=== PATIENT | female | born 1965 | race Caucasian/White ===

== ENCOUNTER 2024-10-18 06:37 | Outpatient (CLI) | payer MEDICARE, SELFPAY ==
--- OUTSIDE RECORDS SUMMARY | 2024-10-18 06:46 | XMS_ITS | Patient Health Record ---
Author Organization [facility] Office Address [address] [facility] [address] [facility] [address] [place] [address] Care Team Providers Care Furnishings Conservator Name Role Phone Everette Griffin Unavailable [phone] REASON FOR REFERRAL No Information PROBLEMS Problem Type ICD Code Onset Dates Problem Status W/U Status Risk SNOMED Code Notes Problem Hypothyroidism, unspecified (E03.9) Active confirmed Hypothyr oidism (40520441) Problem Type 2 diabetes mellitus with diabetic chronic kidney disease (E11.22) Active confirmed Diabetic renal disease (573285378) Problem Obesity, unspecified (E66.9) Active confirmed Obesity (087325743) Problem 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) Active confirmed Aortic kang ve disorder (1523267) Problem Chronic obstructive pulmonary disease, unspecified (J44.9) Active confirmed Chronic obstructive pulmonary disease (17336419) Problem Chronic kidney disease, stage 4 (severe) (N18.4) Active confirmed Chronic kid mindy disease stage 4 (123570132) Problem Renal osteodystrophy (N25.0) Active confirmed Renal osteodyst rophy (53181366) Problem Secondary hyperparathyroidism of renal origin (N25.81) Active confirmed Secondary hyperparathyroidism of renal origin (78558854) Problem Edema, unspecified (R60.9) Active confirmed Edema (84988584) Problem Essential hypertension (I10) Active confirmed Essential hypertension (37947695) Problem Chronic kidney disease, stage 3 unspecified (N18.30) Active confirmed Chronic kidney disease stage 3 (disorder) (146809604) Encounters Encounter Location Date Provider Diagnosis [facility] [address] [facility] [address] [place] [address] 10/12/2024 Everette Griffin Chronic kidney disea se, stage 4 (severe) N18.4 ; Type 2 diabetes mellitus with diabetic chronic kidney disease E11.22 ; Proteinuria, unspecified R80.9 ; Essential hypertension I10 ; Renal osteodystrophy N25.0 ; Secondary hyperparathyroidism of renal origin N25.81 ; Acute metabolic acidosis E87.21 and Obesity, unspecified E66.9 ASSESSMENTS Encounter Date Diagnosis Assessment Notes Treatment Notes Treatment Clinical Notes Section Notes 10/12/2024 Type 2 diabetes mellitus with diabetic chronic kidney disease (ICD-10 - E11.22) 10/12/2024 Chronic kidney disea se, stage 4 (severe) (ICD-10 - N18.4) 10/12/2024 Proteinuria, unspecified (ICD-10 - R80.9) 10/12/2024 Essential hypertensi on (ICD-10 - I10) 10/12/2024 Renal osteodystrophy (ICD-10 - N25.0) 10/12/2024 Secondary hyperparathyroidism of renal origin (ICD-10 - N25.81) 10/12/2024 Acute metabolic acidosis (ICD-10 - E87.21) 10/12/2024 Obesity, unspecified (ICD-10 - E66.9) PLAN OF TREATMENT Next Appt Details Provider Name:Everette Griffin , 10/26/2024 03:00:00 PM, [address], [facility] [address], [place], [address],
--- OUTSIDE RECORDS SUMMARY | 2024-10-18 06:46 | XMS_ITS | CONTINUITY OF CARE DOCUMENT ---
Author Name yo ram Address Unknown Organization [facility] Address [address] [place] [address] Phone [phone] Care Team Providers Care All Around Presser Name Role Phone Anna NETTLES, Bry Webb Unavailable BARTOLO NG MD Unavailable [phone] BARTOLO NG MD Unavailable PROBLEMS Condition Status Date Provider Notes HTN essential--echo ef nl, s evere , 04/2022 active Feliciano Griffin MD Hyperlipidemia active Feliciano Griffin MD COPD active Feliciano Griffin MD Hypothyroidism active Feliciano Griffin MD Morbid obesity active Feliciano Griffin MD Sinus tachycardia active Feliciano Griffin MD Chest pain--no sig CAD on cath 10/2022 active Feliciano Griffin MD FAMILY HISTORY OF HEART DISEASE active Armani Griffin MD Aortic stenosis, severe by echo 06/2023 active Dequan Ware Venous insufficiency active Feliciano Griffin MD JULIO on CPAP active Feliciano Griffin MD Proteinuria, f/w Dr. Loyola active Feliciano quintero MD CKD 3 active Dequan Ware Hypertension active Bry Castillo MD Sleep apnea active Bry Castillo MD Edema - generalized active Bry Castillo MD ENCOUNTERS Date Type Provider Location Encounter Diag nosis - In-person encounter Office Visit Bry Castillo MD [facility] - In-person encounter Office Visit Bry Castillo MD [facility] - In-person encounter Office Visit Bry Castillo MD [facility] Edema - generalized - In-person encounter Office Visit Bry Castillo MD [facility] HypertensionSleep apnea - In-person encounter Office Visit Feliciano Griffin MD [facility] Aortic stenosis, severe by echo KD 3 - In-person encounter Office Visit Feliciano Griffin MD [facility] Chest pain--no sig CAD on cath ortic stenosis, severe by echo 06/2023 - In-person encounter Office Visit Feliciano Griffin MD [facility] - In-person encounter Office Visit Feliciano Griffin MD [facility] HTN essential--echo ef nl, severe , ortic stenosis, severe by echo 06/2023 - In-person encounter Office Visit Feliciano Griffin MD [facility] - In-person encounter Office Visit Feliciano Griffin MD [facility] JULIO on CPAPProteinuria, f/w Dr. Loyola - In-person encounter Office Visit Feliciano Griffin MD [facility] Chest pain--no sig CAD on cath 10/2022FAMILY HISTORY OF HEART DISEASEAortic stenosis, severe by echo 06/2023Venous insufficiency - In-person encounter Office Visit Feliciano Griffin MD [facility] HTN essential--echo ef nl, severe , 04/2022HyperlipidemiaCOP DHypothyroidismMorbid obesitySinus tachycardiaChest pain--no sig CAD on cath 10/2022 VITAL SIGNS Date Observation Value Provider Body Mass Index (Ratio) 56.33 kg/m2 Jonathan Castillo MD blood pressure, cuff size large Ke rri Grantamriknenfeld blood pressure, diastolic 90 mm[Hg] Dominick rri Grantuenenfeld blood pressure, systolic 144 mm[Hg] Gamaliel lua Grantamrikcarrilloeldcarl oxygen saturation, oximetry 96 % Lisbeth Fransisconfelder respiratory rate E&M 14 /min Lisbeth G ruenenfelder pulse rate 90 /min Lisbeth Jordane [facility] weight E&M 308 [lb_av] Lisbeth Kapilnenfe [facility] height E&M 62 [in_i] Lisbeth Kapilnenfe [facility] Body Mass Index (Ratio) 58.34 kg/m2 Fadi luna Faith blood pressure, diastolic 94 mm[Hg] nkLog blood pressure, systolic 122 mm[Hg] [facility] blood pressure, cuff size regular [facility] blood pressure, diastolic 94 mm[Hg] [facility] blood pressure, systolic 122 mm[Hg] [facility] respiratory rate E&M 18 /min Solange victor pulse rate 87 /min [facility] oxygen saturation, oximetry 97 % [facility] weight E&M 319 [lb_av] [facility] height E&M 62 [in_i] [facility] Body Mass Index (Ratio) 58.89 kg/m2 Jonathan Castillo MD blood pressure, diastolic 82 mm[Hg] Li nkLog blood pressure, systolic 185 mm[Hg] Tiffanie og blood pressure, cuff size regular [facility] blood pressure, diastolic 82 mm[Hg] [facility] blood pressure, systolic 185 mm[Hg] Michael aylaa [place] pulse rate 102 /min Solange [place] respiratory rate E&M 18 /min Solange Nicholson jackelinr oxygen saturation, oximetry 95 % Solange [place] weight E&M 322 [lb_av] Solange [place] height E&M 62 [in_i] Solange [place] Body Mass Index (Ratio) 57.61 kg/m2 Jonathan Castillo MD blood pressure, cuff size large [facility] blood pressure, diastolic 100 mm[Hg] Ke rri Grantuechance blood pressure, systolic 140 mm[Hg] Gamaliel Cobian oxygen saturation, oximetry 96 % Lisbeth Cobian respiratory rate E&M 12 /min Lisbeth daniel pulse rate 111 /min Lisbeth Aurora [facility] weight E&M 315 [lb_av] Lisbeth Aurora [facility] height E&M 62 [in_i] Lisbeth Aurora er Body Mass Index (Ratio) 57.43 kg/m2 Armani Griffin MD blood pressure, diastolic 81 mm[Hg] Shruthi nkLogkamran blood pressure, systolic 167 mm[Hg] Tiffanie kLogic blood pressure, cuff size large Ja rret blood pressure, diastolic 81 mm[Hg] Ja rret blood pressure, systolic 167 mm[Hg] Jar ret pulse rate 85 /min Pedro er y oxygen saturation, oximetry 96 % Pedro respiratory rate E&M 16 /min Pedro weight E&M 314 [lb_av] Pedro erda y height E&M 62 [in_i] Pedro Quezada y Body Mass Index (Ratio) 58.52 kg/m2 Armani Griffin MD blood pressure, diastolic 88 mm[Hg] [facility] sw[facility] Felix blood pressure, systolic 167 mm[Hg] Lena mendoza Felix oxygen saturation, oximetry 96 % Jena Felix pulse rate 101 /min Jena Felix respiratory rate E&M 18 /min Jena D abby weight E&M 320 [lb_av] Jena Felix height E&M 62 [in_i] Jena Felix Body Mass Index (Ratio) 57.97 kg/m2 Armani Griffin MD oxygen saturation, oximetry 97 % Minervafoster Booker pulse rate 90 /min [facility] Booker blood pressure, diastolic 80 mm[Hg] Lorena staci [place] blood pressure, systolic 160 mm[Hg] Any foster [place] weight E&M 317 [lb_av] [facility] Booker blood pressure, cuff size large An staci Booker height E&M 62 [in_i] Minerv[place] Booker Body Mass Index (Ratio) 58.52 kg/m2 Armani Griffin MD blood pressure, diastolic 76 mm[Hg] Shruthi nkLogic blood pressure, systolic 131 mm[Hg] Tiffanie kLogic blood pressure, diastolic 76 mm[Hg] Sa ra Villalobos blood pressure, systolic 131 mm[Hg] Mila a Villalobos respiratory rate E&M 17 /min Hanh Si ms oxygen saturation, oximetry 95 % Hanh Villalobos pulse rate 94 /min Hanh Villalobos weight E&M 320 [lb_av] Hanh Villalobos blood pressure, cuff size regular Sa ra Villalobos height E&M 62 [in_i] Hanh Villalobos Body Mass Index (Ratio) 62.00 kg/m2 Armani Griffin MD blood pressure, diastolic 74 mm[Hg] Li nkLogic blood pressure, systolic 130 mm[Hg] Tiffanie kLogic blood pressure, cuff size regular Cy tejal Sam blood pressure, diastolic 74 mm[Hg] Cy tejal Vargas blood pressure, systolic 130 mm[Hg] Colette jordan Vargas oxygen saturation, oximetry 96 % Neena Vargas respiratory rate E&M 16 /min Neena Vargas pulse rate 97 /min Neena Taylor chapin weight E&M 339 [lb_av] Feliciano Griffin MD height E&M 62 [in_i] Neena Hightowerbel l Body Mass Index (Ratio) 62.55 kg/m2 Armani Griffin MD blood pressure, diastolic 85 mm[Hg] To [facility] blood pressure, systolic 147 mm[Hg] Ton Jerold [facility] oxygen saturation, oximetry 97 % [facility] respiratory rate E&M 18 /min [facility] pulse rate 97 /min [facility] weight E&M 342 [lb_av] [facility] height E&M 62 [in_i] [facility] Body Mass Index (Ratio) 64.92 kg/m2 Armani Griffin MD blood pressure, diastolic 75 mm[Hg] To garrison Griffin MD blood pressure, systolic 152 mm[Hg] Harvinder Griffin MD oxygen saturation, oximetry 95 % Feliciano Griffin MD respiratory rate E&M 16 /min Feliciano Griffin MD pulse rate 113 /min Feliciano Griffin MD weight E&M 355 [lb_av] Feliciano Griffin MD height E&M 62 [in_i] Feliciano Griffin MD Body Mass Index (Ratio) 45.72 kg/m2 Armani Griffin MD respiratory rate E&M 18 /min [facility] blood pressure, diastolic 80 mm[Hg] To [facility] blood pressure, systolic 140 mm[Hg] [facility] pulse rate 107 /min [facility] blood pressure, resting Yes [facility] height E&M 62 [in_i] [facility] weight E&M 250 [lb_av] [facility] oxygen saturation, oximetry 97 % [facility] ALLERGIES No Known Drug Allergies RESULTS Date Observation Value Provider Reference Range Interpretation Location Estimated Glomerular Filtration Rate (calc) 61 mL/min/{ 1.73_m2} [facility] [place] [address] NT-pro BNP 56 [facility] <=300 Normal [place] [address] aspartate aminotransferase (SGOT), serum 15 1/L [facility] 10-45 Normal [place] [address] alanine aminotransferase (SGPT), serum 19 1/L [facility] 7-45 Normal [place] [address] Alkaline phosphatase 123 [facility] 40-130 Normal C, [place] [address] albumin, serum 4.6 g/dL [facility] 3.5-5.0 Normal [place] [address] protein, total, serum 7.9 g/dL [facility] 6.5-8.5 Normal [place] [address] bilirubin, serum, total 0.3 mg/dL [facility] 0.1-1.2 Normal [place] [address] calcium, serum 10.1 mg/dL [facility] 8.5-10.3 Normal C, [place] [address] blood glucose, random 71 mg/dL [facility] 70-199 Normal C, [place] [address] creatine, serum 1.05 mg/dL [facility] 0.60-1.10 Normal C, [place] [address] urea nitrogen, blood 18 mg/dL [facility] 6-25 Normal C, [place] [address] anion gap, serum 11 mmol/L [facility] 2-15 Normal C, [place] [address] carbon dioxide, venous blood 27 mmol/L [facility] 22-32 Normal C, [place] [address] chloride, serum 103 mmol/L [facility] 97-110 Normal C, [place] [address] potassium, serum 4.4 MMOL/L [facility] 3.3-4.9 Normal , [place] [address] sodium, serum 141 mmol/L [facility] 135-145 Normal C, [place] [address] activated partial thromboplastin time (aPTT) 34 s [facility] 28-38 Normal C, [place] [address] international normalized ratio (INR) 0.96 [facility] 0.90-1.20 Normal , [place] [address] prothrombin time (patient) 11.0 s [facility] 10.3-13.7 Normal , [place] [address] Absolute Basophils 0.1 K/CUMM [facility] 0.0-0.1 Normal C, [place] [address] Absolute Monocytes 0.5 K/CUMM [facility] 0.2-0.8 Normal , [place] [address] Absolute Lymphocytes 1.3 K/CUMM [facility] 0.8-3.3 Normal , [place] [address] Absolute Neutrophils 4.1 K/CUMM [facility] 1.5-6.5 Normal C, [place] [address] nucleated red blood cells as percent of blood leukocytes 0.00 K/CUMM [facility] 0.00-0.01 Normal red blood cell distribution width, size density 45.8 fL [facility] 35.7-48.1 Normal mean corpuscular hemoglobin concentration, RBC 31.7 G/DL [facility] 32.3-35.7 Low mean corpuscular hemoglobin, RBC 31.1 pg [facility] 27.1-33.3 Normal mean corpuscular volume, RBC 98.3 fL [facility] 81.3-96.4 High erythrocyte count, whole blood 4.66 M/CUMM [facility] 3.90-5.20 Normal mean platelet volume 10.4 fL [facility] 9.1-12.3 Normal platelet count 281 10*3/uL [facility] 150-400 Normal hematocrit, blood 45.8 % [facility] 35.6-45.5 High hemoglobin, blood 14.5 g/dL [facility] 11.9-15.5 Normal HISTORY OF MEDICATION USE Medication Status Instructions Dates Provider Indications Com ments clopidogrel 75 mg tablet active TAKE 1 TABLET BY MOUTH EVERY DAY Ana Brown Lasix 40 mg tablet active Take 1 tablet by mouth every other day Bry Castillo MD aspirin 81 mg tablet,chewable active TAKE 1 TABLET BY MOUTH EVERY DAY Solange Dillonbetriq 25 mg tablet extended release 24 hr active Take 1 tablet once a day Bry Castillo MD VITAMIN D TABLET active Take 1 tablet once a day Bry Castillo MD pravastatin 10 mg tablet active Bry Castillo MD #90, 90 days supply, Filled 04/12/2019 CIPROFLOXACIN HCL 500 MG ORAL TABLET completed - Feliciano Griffin MD #20, 10 days supply, Filled 05/26/2019 Spiriva with HandiHaler 18 mcg capsule, w/inhalation device active Bry Castillo MD #30, 30 days supply, Filled 06/18/2019 Symbicort 160-4.5 mcg/actuation HFA aerosol inhaler active Bry Castillo MD #10.2, 30 days supply, Filled 06/22/2019 PROAIR HFA 108 active Bry Castillo MD #8.5, 33 days supply, Filled 06/25/2019 losartan 50 mg tablet active Bry Castillo MD #90, 90 days supply, Filled 08/08/2019 CYCLOBENZAPRINE HCL 10 MG ORAL TABLET completed - Neena Vargas #30, 30 days supply, Filled 08/08/2019 levothyroxine 137 mcg tablet active Bry Castillo MD #30, 30 days supply, Filled 08/16/2019 bupropion HCl 200 mg tablet sustained-release 12 hr active Bry Castillo MD #60, 30 days supply, Filled 08/29/2019 METRONIDAZOLE 500 MG ORAL TABLET completed - Feliciano Griffin MD #14, 7 days supply, Filled 09/12/2019 SOCIAL HISTORY Date Observation Value Provider smoking, date started 1972 Hetal Azevedo NP smoking history, tot al pack/year 365 Hetal Jolly BEAN smoking history, tot al pack/day 1 Hetal Azevedo NP cigarette use yes Hetal Azevedo NP smoking status Former smoker Hetal lua NP smoking, date started 1972 [facility] smoking history, tot al pack/year 365 [facility] smoking history, tot al pack/day 1 [facility] cigarette use yes [facility] smoking status Former smoker [facility] smoking, date started 1972 [facility] smoking history, tot al pack/year 365 [facility] smoking history, tot al pack/day 1 [facility] cigarette use yes [facility] smoking status Former smoker [facility] social history reviewed E&M revi ewed - no changes required Bry Castillo MD social history reviewed E&M revi ewed - no changes required Dequan Ware social history E&M S moking History: Shane boggs is a former smoker. Dequan Ware smoking, date started 1972 Jena Felix smoking history, tot al pack/year 365 Jena Felix smoking history, tot al pack/day 1 Jena Felix cigarette use yes Jena Felix smoking status Former smoker Jena Felix social history reviewed E&M revi ewed - no changes required Dequan Ware social history E&M S moking History: Shane boggs is a former smoker. Debora Sanon social history reviewed E&M revi ewed - no changes required Debora Sanon smoking, date started 1972 Minerva W alysia smoking history, tot al pack/year 365 [facility] Booker smoking history, tot al pack/day 1 Minervafoster Booker cigarette use yes Minervafoster Booker smoking status Former smoker Minervafoster Cordova s social history reviewed E&M revi ewed - no changes required Dequan Ware social history E&M S moking History: Shane boggs is a former smoker. Feliciano Griffin MD social history reviewed E&M revi ewed - no changes required Feliciano Griffin MD smoking, date started 1973 Tho Vargas smoking history, tot al pack/year 365 Neena Vargas smoking history, tot al pack/day 1 Neena Vargas cigarette use yes Neena Otto nba smoking status Former smoker Neena maynard social history E&M S moking History: Shane boggs is a former smoker. Memo Calles social history reviewed E&M revi ewed - no changes required Memo Calles smoking, date started 1972 Tonsha Glasgow smoking history, tot al pack/year 365 Tonsha Glasgow smoking history, tot al pack/day 1 Tonsha Glasgow cigarette use yes Tonsha Glasgow smoking status Former smoker Tons Glasgow number of grandchildren Feliciano Griffin MD T sundar Griffin MD smoking, date started 1972 Feliciano Griffin MD smoking history, tot al pack/year 365 Feliciano Griffin MD smoking history, tot al pack/day 1 Feliciano Griffin MD cigarette use yes Feliciano Govea smoking status Former smoker Feliciano Griffin MD social history reviewed E&M revi ewed - no changes required Feliciano Griffin MD smoking history, tot al pack/year 365 Tonsha Glasgow smoking history, tot al pack/day 1 Tonsha Glasgow smoking, date started 1972 Tonsha Glasgow cigarette use yes Tonsha Glasgow smoking status Former smoker Tonsha Glasgow FAMILY HISTORY Family Member Condition Father Family History of Co ngestive Heart Failure: Father Family History of Co ronary Artery Disease: INSURANCE PROVIDERS Payer name Policy type / Coverage type [place] green party ID AARP MEDICARE ADVANTAGE ([facility] COMPLETE PPO) Other [id number] ADVANCE DIRECTIVES Name Date DISCUSSED - NO DECISION MADE TREATMENT PLAN Date Name Performer [id number],C, H er updated medication list for this problem includes: Levothyroxine Sodium 137 Mcg Oral Tablet (Levothyroxine sodium) Bry Castillo MD [id number],S, Bry Castillo MD [id number],C,S ees pulmonary A lpha-1 antitrypsin deficiency s ees Dr. Martinez @ [facility] for pulmonary Bry Castillo MD [id number],S, H er updated medication list for this problem includes: Pravastatin Sodium 10 Mg Oral Tablet (Pravastatin sodium) Bry Castillo MD [id number],S,has JULIO Maren Castillo MD [id number],S, B P today: 140/100 P rior BP: 167/81 (07/13/2023) Her updated medication list for this problem includes: Losartan Potassium 50 Mg Oral Tablet (Losartan potassium) Bry Castillo MD [id number],C, Severe aortic stenosis. No evidence of aortic insufficiency. Peak AV velocity: 4.03 m/s The Aortic Valve Peak Gradient is 6 5.07 mmHg The Aortic Valve Mean Gradient is 41.39 mmHg The DRAKE is 0.67 cm2. S he had heart carth in December of 2022 done at [facility] P AP is 34/14 and PCW is 17 gradient of 30 across the valve normal coronaries normal LVEF no MR Bry Castillo MD [id number],C,sees Dr. Melissa Castillo MD [id number],S, Dequan Paredes i [id number],S, Dequan Cuellarmedza i [id number],S, Dequan Paredes i [id number],S, Dequan Cuellarmedza i [id number],S, Dequan Ahmedza i [id number],S, Dequan Ahmedza i [id number],S, Dequan Ahmedza i [id number],S, Dequan Ahmedza i [id number],S, Dequan Ahmedza i [id number],S, Dequan Ahmedza i [id number],S, Dequan Ahmedza i [id number],S, Dequan Ahmedza i [id number],S, Dequan Ahmedza i [id number],S, Dequan Ahmedza i [id number],S, Debora Norm obsmeyer [id number],S, Debora Norm obsmeyer [id number],S, Debora Norm obsmeyer [id number],S, Debora Norm obsmeyer [id number],W, Dequan Ahmedza i [id number],W, Dequan Ahmedza i [id number],S, Dequan Ahmedza i [id number],S, Dequan Ahmedza i [id number],S, Dequan Ahmedza i [id number],S, Dequan Ahmedza i [id number],S, Dequan Ahmedza i [id number],W, Feliciano Griffin MD [id number],B, Dequan Ahmedza i [id number],S, Dequan Paredes i [id number],S, Dequan Paredes i [id number],S, Dequan Cedillocuco i [id number],S, Feliciano Griffin MD [id number],S, Feliciano Griffin MD [id number],S, Feliciano Griffin MD [id number],S, Feliciano Griffin MD [id number],S, Feliciano Griffin MD [id number],B, Feliciano Griffin MD Cardiology:This visi t has been a part of the consistent, comprehensive, and ongoing management of the chronic medical condition(s) listed above for the patient. The patient is using CPAP on a regular basis. The patient has been benefiting from therapy and should continue use. Bry Castillo MD Cardiology:This visi t has been a part of the consistent, comprehensive, and ongoing management of the chronic medical condition(s) listed above for the patient. 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 CONCLUSIONS: 1 . No evidence of a deep vein thrombosis of the lower extremities bilaterally. 2 . Venous insufficiency of the right sapheno femoral junction. 3 . Significant venous insufficiency of the greater saphenous vein bilaterally. Bry Castillo MD Cardiology:This visi t has been a part of the consistent, comprehensive, and ongoing management of the chronic medical condition(s) listed above for the patient. Her updated medication list for this problem includes: Pravastatin 10 Mg Tablet (Pravastatin) Bry Castillo MD Cardiology:This visi t has been a part of the consistent, comprehensive, and ongoing management of the chronic medical condition(s) listed above for the patient. BP today: 144/90 P rior BP: 122/94 (11/20/2023) Her updated medication list for this problem includes: Losartan 50 Mg Tablet (Losartan) Lasix 40 Mg Tablet (Furosemide) ..... Take 1 tablet by mouth every other day Aspirin 81 Mg Tablet,chewable (Aspirin) ..... Take 1 tablet by mouth every day Bry Castillo MD Cardiology: S ees pulmonary A lpha-1 antitrypsin deficiency s ees Dr. Martinez @ [facility] for pulmonary Hetal Celestinstoney BEAN Cardiology: T he patient is using CPAP on a regular basis. The patient has been benefiting from therapy and should continue use. Hetal Jolly BEAN Cardiology: N o current symptoms Hetal Jolly BEAN Cardiology: S /P TAVR 26 valve C ontinues on Plavix Hetal Jolly BEAN Cardiology: C ONCLUSIONS: 1 . No evidence of a deep vein thrombosis of the lower extremities bilaterally. 2 . Venous insufficiency of the right sapheno femoral junction. 3 . Significant venous insufficiency of the greater saphenous vein bilaterally. Hetal Gerberoleg BEAN Cardiology: H er updated medication list for this problem includes: Pravastatin 10 Mg Tablet (Pravastatin) Hetal Jolly BEAN Cardiology: B P today: 144/90 P rior BP: 122/94 (11/20/2023) Her updated medication list for this problem includes: Losartan 50 Mg Tablet (Losartan) Lasix 40 Mg Tablet (Furosemide) ..... Take 1 tablet by mouth every other day Aspirin 81 Mg Tablet,chewable (Aspirin) ..... Take 1 tablet by mouth every day Hetal Jolly BEAN Cardiology: H er updated medication list for this problem includes: Levothyroxine Sodium 137 Mcg Oral Tablet (Levothyroxine sodium) Bry Castillo MD Cardiology: H er updated medication list for this problem includes: Aspirin 81 Mg Tablet,chewable (Aspirin) ..... Take 1 tablet by mouth every day Losartan Potassium 50 Mg Oral Tablet (Losartan potassium) BP today: 185/82 P rior BP: 140/100 (07/23/2023) Bry Castillo MD Cardiology: s johny perera 1.05 Bry Castillo MD Cardiology Bry Castillo MD Cardiology: T AVR 26 valve Bry Castillo MD Cardiology: S ees pulmonary A lpha-1 antitrypsin deficiency s eejames Martinez @ [facility] for pulmonary Bry Castillo MD Cardiology:switch her to lasix e very other day 40mg Bry Castillo MD Cardiology: T he patient is using CPAP on a regular basis. The patient has been benefiting from therapy and should continue use. Bry Castillo MD Cardiology:add lasix 40mg x 1 week 1 +bilaterally edema Bry Castillo MD Cardiology: H er updated medication list for this problem includes: Aspirin 81 Mg Tablet,chewable (Aspirin) ..... Take 1 tablet by mouth every day Losartan Potassium 50 Mg Oral Tablet (Losartan potassium) BP today: 185/82 P rior BP: 140/100 (07/23/2023) Bry Castillo MD Cardiology: s johny perera 1.05 Bry Castillo MD Cardiology: H er updated medication list for this problem includes: Aspirin 81 Mg Tablet,chewable (Aspirin) ..... Take 1 tablet by mouth every day Bry Castillo MD Cardiology:TAVR 26 valve Bry Castillo MD Cardiology:The patie nt is using CPAP on a regular basis. The patient has been benefiting from therapy and should continue use. Bry Castillo MD Cardiology: H er updated medication list for this problem includes: Levothyroxine Sodium 137 Mcg Oral Tablet (Levothyroxine sodium) Bry Castillo MD Cardiology Bry Castillo MD Cardiology:Sees pulm kari A lpha-1 antitrypsin deficiency s ees Dr. Martinez @ [facility] for pulmonary Bry Castillo MD Cardiology: H er updated medication list for this problem includes: Pravastatin Sodium 10 Mg Oral Tablet (Pravastatin sodium) Bry Castillo MD Cardiology:has JULIO Bry bryson MD Cardiology: B P today: 140/100 P rior BP: 167/81 (07/13/2023) Her updated medication list for this problem includes: Losartan Potassium 50 Mg Oral Tablet (Losartan potassium) Bry Castillo MD Cardiology: Severe a ortic stenosis. No evidence of aortic insufficiency. Peak AV velocity: 4.03 m/s The Aortic Valve Peak Gradient is 6 5.07 mmHg The Aortic Valve Mean Gradient is 41.39 mmHg The DRAKE is 0.67 cm2. S he had heart carth in December of 2022 done at [facility] P AP is 34/14 and PCW is 17 gradient of 30 across the valve normal coronaries normal LVEF no MR Bry Castillo MD Cardiology:sees Dr. Milla Castillo MD Cardiology Dequan Ahcasey Cardiology Dequan Ahmedzai Cardiology Dequan Ahcasey Cardiology Dequan Ahcasey Cardiology Dequan Ahcasey Cardiology Dequan Ahmedzai Cardiology Dequan Ahmedzai Cardiology Dequan Ahmedzai Cardiology Dequan Ahmedzai Cardiology Dequan Ahmedzai Cardiology Dequan Ahmedzai Cardiology Dequan Ahmedzai Cardiology Dequan Ahmedzai Cardiology Dequan Ahmedzai Cardiology Debora Shultz eyer Cardiology Debora Shultz eyer Cardiology Debora Shultz eyer Cardiology Debora Shultz eyer Cardiology Dequan Ahmedzai Cardiology Dequan Ahmedzai Cardiology Dequan Ahmedzai Cardiology Dequan Ahmedzai Cardiology Dequan Ahmedzai Cardiology Dequan Ahmedzai Cardiology Dequan Ahmedzai Telehealth Feliciano Griffin MD Telehealth Dequan Ahmedzai Telehealth Dequan Ahmedzai Telehealth Dequan Ahmedzai Telehealth Dequan medzai Cardiology follow up Feliciano huff MD Cardiology follow up Feliciano huff MD Cardiology follow up Feliciano huff MD Cardiology follow up Feliciano huff MD Cardiology follow up Feliciano huff MD Cardiology follow up Feliciano huff MD Cardiology Memo Nacht Cardiology Memo Nacht Cardiology Memo Nacht Cardiology Memo Nacht Cardiology Memo Nacht Cardiology Memo Nacht Cardiology Memo Nacht Cardiology Feliciano Griffin MD Cardiology Feliciano Griffin MD Cardiology Feliciano Griffin MD Cardiology Feliciano Griffin MD Cardiology Feliciano Griffin MD Cardiology Feliciano Griffin MD Cardiology Feliciano Griffin MD Cardiology Feliciano Griffin MD Cardiology Feliciano Griffin MD Cardiology Feliciano Griffin MD Cardiology Feliciano Griffin MD Date Name RPM (remote patient monitoring) EKG Complete Echo Complete Echo PROTHROMBIN TIME WIT H INR LIPID PANEL CBC (INCLUDES DIFF/P LT) BASIC METABOLIC PANE L W/EGFR Cardiac Cath - L/R - GC Complete Echo Complete Echo Complete Echo TSH, free T4, total T3 Vitamin D, 25-Hydrox y Microalb/Creatinine Urine, Random HEMOGLOBIN A1c COMPREHENSIVE METABO LIC PANEL, W/EGFR CBC (INCLUDES DIFF/P LT) LIPID PANEL Sleep Study Home Sleep Study Holter Monitor 48 hr Venous Doppler Bilat eral LE Stress Regadenoson Complete Echo HISTORY OF PROCEDURES Procedure Date Procedure Name Provider Procedure Notes S tatus Complex e/m visit add on Bry Castillo MD completed EKG Bry Castillo MD compl eted EKG Bry Castillo MD compl eted EKG Feliciano Griffin MD completed EKG Feliciano Griffin MD completed EKG Feliciano Griffin MD completed Regadenoson, 4 units Feliciano Griffin MD completed Cardiolite, 2 units Feliciano Griffin MD completed SPECT Images Feliciano Griffin MD complet ed Stress EKG Feliciano Griffin MD completed FVC / MVV with bronchodilator - [id number] Feliciano Griffin MD completed FRC - [id number] Feliciano Griffin MD complete d SpO2 w/o 6min walk/titration Feliciano Griffin MD completed EKG Feliciano Griffin MD completed
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
--- OUTSIDE RECORDS SUMMARY | 2024-10-18 06:47 | XMS_ITS | Data Portability ---
Author Organization [facility] [employer], Main Office Address [address] [place] [address] Assessment Encounter Date Assessment Date Assessment LastModified by Organization Details LastModified Time 04/28/2023 04/28/2023 Assessment: Nicotine smoke: 1 ppd [id number] = 38 pack years Left apical pulmonary nodule Mild ACO AAT PiMS 128 mg% Very severe OSAHS, AHI = 138 Plan: The following were reviewed and explained to the patient: [facility] split night sleep study 11/23/19 AHI = 138, Respironics medium Wisp nasal mask @ [address] 11/14/19 Left apical [address] 02/12/21 Left apical [address] 04/08/22 Left apical 3 mm nodule, no further follow up Lab data 03/25/22 PiMS PFT 09/30/19 FEV1 1.19 L (49%) PFT 04/08/22 FEV1 1.63 L (74%), BD 350 mL = 27% PFT 02/25/23 FEV1 1.34 L (60%), BD 180 mL = 16% Advised to continue not to smoke. Ufcce-9-hmnxzvzuxy n deficiency (AAT) information were discussed: What is alpha-1 antitrypsin deficiency? How common is alpha-1 antitrypsin deficiency? What genes are related to alpha-1 antitrypsin deficiency? How do people inherit alpha-1 antitrypsin deficiency? What other names do people use for alpha-1 antitrypsin deficiency? Who should get replacement enzymes? AAT deficiency educational video is shown. If agreeable, the patient will receive 60 mg/kg weekly IV infusions of alpha-1 antitrypsin protein concentrates as an augmentation therapy when both serum alpha-1 antitrypsin concentrations are below protective levels and FEV1 is less than 80% of the predicted value. Patient will encourage her 6 sisters, 4 brothers, 3 sons and 1 daughter to be tested for AAT deficiency. General information on bronchial asthma was covered. Patient will monitor peak flow daily at a set time and again when symptoms of chest tightness, cough, dyspnea or wheezing occur. Patient will bring peak flow record to subsequent visits. The color of a traffic light will guide the patient's use of asthma medications: (1) Green means Go Zone. Peak flow: above 80% of personal best. Symptoms: Breathing is good, no cough or wheeze present, patient sleeps through the night and can work and play. Plan: Patient will continue the use of preventative medicine. (2) Yellow means Caution Zone. Peak flow: between 50-80% of personal best. Symptoms: Presence of first signs of a cold, exposure to known trigger, mild wheeze, tight chest and coughing especially night. Plan: Patient will add quick-relief medicine to preventative medicine. (3) Red means Danger Zone. Peak flow: below 50% of personal best. Symptoms: Asthma is getting worse quickly and medicine is not helping, breathing is hard and fast, nose opens widely when breathing, ribs showing when breathing, and patient cannot speak in full sentences. Plan: Patient will get help from a physician immediately. Continue albuterol HFA as needed. Continue Spiriva Handihaler one daily. Continue Symbicort 160/4.5 mcg 2 puffs twice daily, not once daily. Gargle after use. The patient does not know how to accurately administer the inhalers. Today, the patient was shown how to take these medications. The proper technique for delivering these medications was instructed. The patient expressed a clear understanding and demonstrated back how to use these medications. Without the proper technique, the patient will not reap the benefits of these medications as the contents will not reach the lower airways as intended to be. Adherence to therapy is advocated. Nonadherence may lead to treatment failure, further progression of the condition, and other complications. Hospitals admissions are often the result of individuals not taking prescription medications accurately. Alternatively, greater adherence to medication regimens have shown to lower rates of hospitalization and decrease total medical costs in patients with chronic medical conditions. PAP compliance downloaded and interpreted x 20 minutes. Data reviewed and explained to the patient. Average apnea/hypopnea index (AHI) is 2.1. Patient used PAP > 4 hours 91% of the time. PAP is set at 13 cmH2O. PAP will remain at 13 cmH2O. Oxygen supplementation: none Patient is benefiting from PAP therapy. Encouraged patient to maintain PAP use more than 70% of the time. Statement of PAP use and benefits will be sent to the home care store. Educated the patient on problems and solutions associated with positive airway pressure (PAP) use. Difficulty tolerating pressure, mask leaks, intolerance of interface, nasal congestion, claustrophobic response, dry mouth, and unintentional mask removal during sleep were covered. Dry mouth is a normal occurrence for people who just start out on PAP therapy because they are not used to air blowing in to the throat to hold open. Dry mouth is exacerbated for people who wear nasal PAP mask and whose jaw drops open during sleep. Not only does this create a much less efficient therapy because of leakage, it also causes dry mouth. There are a couple solutions to help prevent this type of problem. A simple solution would be to wear a chinstrap which essentially holds the jaw in place. A second solution would be a switch to a full face mask which covers both the nose and mouth. Although this is another easy solution, using a full face mask for some could seem claustrophobic or confining. There is no silver bullet solution as no single mask is right for everybody. Sometimes it takes a bit of experimentation to find a PAP mask which best meets the patient's needs as well as fits comfortably. Another tactic is to use a humidifier on your PAP machine. Most new PAP machines have integrated humidifiers. Humidification is lynn when dealing with symptoms of dry mouth because the humidifier can supply both warm and room temperate air. Even a small amount of humidity in the airflow will help nasal passages to stay hydrated. If a person is using both a full face mask and a PAP machine with a heated humidifier and is still experiencing dry mouth, an ill-fitted PAP mask might be causing the problem. Leakage can be caused by a mask that is to large or small, the wrong style mask, the cushion is degraded or simply because the mask's straps aren't adjusted correctly. If leakage occurs, dry air from the room can leak in while humidification escapes. The result is reduced humidification within the circuit and resulting in dry throat and mouth. Finally, beyond factors involving the PAP machine and mask, dry mouth can also be caused or worsened by dehydration. The general recommendation to during eight 8 oz. glasses of water a day might be too little for many people. When people drink large amounts of coffee or other caffeine beverages, or sweat a lot during the day, making sure to rehydrate is an important part of PAP therapy. Provided the patient with a list of local home care stores where positive airway pressure (PAP) units, accouterments, and services are available. Home care store selection is based on patient's insurance carrier. Patient will setup an appointment with [facility] for supplies and pressure adjustments. A major predictor of success with use of PAP is follow-up with both the respiratory supplier and the treating physician. To help assess adherence, a downloadable card/chip is ordered with the PAP equipment. The card/chip will be downloaded by the respiratory supplier and sent to the treating physician. The download results can show the treating physician information about adherence to treatment, residual AHI while on treatment and presence of large mask leakage. This information is especially helpful if the patient has residual sleepiness despite treatment. Advocated influenza vaccination annually and pneumonia vaccination CLARE. Advocated weight loss through diet and exercise. Patient's ideal body weight according to height and gender is up to 115 lbs. Encouraged patient to adjust caloric intake to maintain/achieve ideal body weight, emphasizing on fruits, vegetables, whole grains, and fat-free or low-fat products. These include lean meats, poultry, fish, beans, eggs, and nuts and foods that are low in saturated fats, trans-fats, cholesterol, salt (sodium), and glycemic index. Stressed the importance of regular exercise up to the patient's capacity limits. In this case, we recommend regular (4 x a week or more) walking or other light activity. Patient to monitor BP daily and bring records to PCP for further management. Follow-up: 1 year, April 2024 Not available 04/28/2023 11:13:16 10/07/2023 10/07/2023 Assessment: Nicotine smoke: 1 ppd [id number] = 38 pack years Left apical pulmonary nodule Mild ACO AAT PiMS 128 mg% Very severe OSAHS, AHI = 138 Plan: The following were reviewed and explained to the patient: [facility] split night sleep study 11/23/19 AHI = 138, Respironics medium Wisp nasal mask @ [address] 11/14/19 Left apical [address] 02/12/21 Left apical [address] 04/08/22 Left apical 3 mm nodule, no further follow up Chest x-ray 10/06/23 normal study Lab data 03/25/22 PiMS PFT 09/30/19 FEV1 1.19 L (49%) PFT 04/08/22 FEV1 1.63 L (74%), BD 350 mL = 27% PFT 02/25/23 FEV1 1.34 L (60%), BD 180 mL = 16% The patient is cleared for contemplated aortic valve replacement and general anesthesia under the care of Dr. Bry Castillo and Dr. Nikolai Peters at [facility], scheduled for 10/20/23. (Fax number is [phone]). The patient will bring PAP unit and inhalers for perioperative use. Aggressive pulmonary toilet is recommended to clear airways of mucus and other secretions by deep breathing, incentive spirometry, postural drainage and percussion. Oxygen supplementation may be necessary to keep saturation between 89-94%. Advised to continue not to smoke. Ywpxs-2-tqlygngqjp n deficiency (AAT) information were discussed: What is alpha-1 antitrypsin deficiency? How common is alpha-1 antitrypsin deficiency? What genes are related to alpha-1 antitrypsin deficiency? How do people inherit alpha-1 antitrypsin deficiency? What other names do people use for alpha-1 antitrypsin deficiency? Who should get replacement enzymes? AAT deficiency educational video is shown. If agreeable, the patient will receive 60 mg/kg weekly IV infusions of alpha-1 antitrypsin protein concentrates as an augmentation therapy when both serum alpha-1 antitrypsin concentrations are below protective levels and FEV1 is less than 80% of the predicted value. Patient will encourage her 6 sisters, 4 brothers, 3 sons and 1 daughter to be tested for AAT deficiency. General information on bronchial asthma was covered. Patient will monitor peak flow daily at a set time and again when symptoms of chest tightness, cough, dyspnea or wheezing occur. Patient will bring peak flow record to subsequent visits. The color of a traffic light will guide the patient's use of asthma medications: (1) Green means Go Zone. Peak flow: above 80% of personal best. Symptoms: Breathing is good, no cough or wheeze present, patient sleeps through the night and can work and play. Plan: Patient will continue the use of preventative medicine. (2) Yellow means Caution Zone. Peak flow: between 50-80% of personal best. Symptoms: Presence of first signs of a cold, exposure to known trigger, mild wheeze, tight chest and coughing especially night. Plan: Patient will add quick-relief medicine to preventative medicine. (3) Red means Danger Zone. Peak flow: below 50% of personal best. Symptoms: Asthma is getting worse quickly and medicine is not helping, breathing is hard and fast, nose opens widely when breathing, ribs showing when breathing, and patient cannot speak in full sentences. Plan: Patient will get help from a physician immediately. Continue albuterol HFA as needed. Continue Spiriva Handihaler one daily. Continue Symbicort 160/4.5 mcg 2 puffs twice daily. Gargle after use. The patient does not know how to accurately administer the inhalers. Today, the patient was shown how to take these medications. The proper technique for delivering these medications was instructed. The patient expressed a clear understanding and demonstrated back how to use these medications. Without the proper technique, the patient will not reap the benefits of these medications as the contents will not reach the lower airways as intended to be. Adherence to therapy is advocated. Nonadherence may lead to treatment failure, further progression of the condition, and other complications. Hospitals admissions are often the result of individuals not taking prescription medications accurately. Alternatively, greater adherence to medication regimens have shown to lower rates of hospitalization and decrease total medical costs in patients with chronic medical conditions. PAP compliance downloaded and interpreted x 20 minutes. Data reviewed and explained to the patient. Average apnea/hypopnea index (AHI) is 1.5. Patient used PAP > 4 hours 88% of the time. PAP is set at 13 cmH2O. PAP will remain at 13 cmH2O. Oxygen supplementation: none Patient is benefiting from PAP therapy. Encouraged patient to maintain PAP use more than 70% of the time. Statement of PAP use and benefits will be sent to the home care store. Educated the patient on problems and solutions associated with positive airway pressure (PAP) use. Difficulty tolerating pressure, mask leaks, intolerance of interface, nasal congestion, claustrophobic response, dry mouth, and unintentional mask removal during sleep were covered. Dry mouth is a normal occurrence for people who just start out on PAP therapy because they are not used to air blowing in to the throat to hold open. Dry mouth is exacerbated for people who wear nasal PAP mask and whose jaw drops open during sleep. Not only does this create a much less efficient therapy because of leakage, it also causes dry mouth. There are a couple solutions to help prevent this type of problem. A simple solution would be to wear a chinstrap which essentially holds the jaw in place. A second solution would be a switch to a full face mask which covers both the nose and mouth. Although this is another easy solution, using a full face mask for some could seem claustrophobic or confining. There is no silver bullet solution as no single mask is right for everybody. Sometimes it takes a bit of experimentation to find a PAP mask which best meets the patient's needs as well as fits comfortably. Another tactic is to use a humidifier on your PAP machine. Most new PAP machines have integrated humidifiers. Humidification is lynn when dealing with symptoms of dry mouth because the humidifier can supply both warm and room temperate air. Even a small amount of humidity in the airflow will help nasal passages to stay hydrated. If a person is using both a full face mask and a PAP machine with a heated humidifier and is still experiencing dry mouth, an ill-fitted PAP mask might be causing the problem. Leakage can be caused by a mask that is to large or small, the wrong style mask, the cushion is degraded or simply because the mask's straps aren't adjusted correctly. If leakage occurs, dry air from the room can leak in while humidification escapes. The result is reduced humidification within the circuit and resulting in dry throat and mouth. Finally, beyond factors involving the PAP machine and mask, dry mouth can also be caused or worsened by dehydration. The general recommendation to during eight 8 oz. glasses of water a day might be too little for many people. When people drink large amounts of coffee or other caffeine beverages, or sweat a lot during the day, making sure to rehydrate is an important part of PAP therapy. Provided the patient with a list of local home care stores where positive airway pressure (PAP) units, accouterments, and services are available. Home care store selection is based on patient's insurance carrier. Patient will setup an appointment with [facility] for supplies and pressure adjustments. A major predictor of success with use of PAP is follow-up with both the respiratory supplier and the treating physician. To help assess adherence, a downloadable card/chip is ordered with the PAP equipment. The card/chip will be downloaded by the respiratory supplier and sent to the treating physician. The download results can show the treating physician information about adherence to treatment, residual AHI while on treatment and presence of large mask leakage. This information is especially helpful if the patient has residual sleepiness despite treatment. Advocated influenza vaccination annually and pneumonia vaccination CLARE. Advocated weight loss through diet and exercise. Patient's ideal body weight according to height and gender is up to 115 lbs. Encouraged patient to adjust caloric intake to maintain/achieve ideal body weight, emphasizing on fruits, vegetables, whole grains, and fat-free or low-fat products. These include lean meats, poultry, fish, beans, eggs, and nuts and foods that are low in saturated fats, trans-fats, cholesterol, salt (sodium), and glycemic index. Stressed the importance of regular exercise up to the patient's capacity limits. In this case, we recommend regular (4 x a week or more) walking or other light activity. Patient to monitor BP daily and bring records to PCP for further management. Follow-up: 6 months, March 2024 Not available 10/07/2023 15:31:02 03/15/2024 03/15/2024 Assessment: Nicotine smoke: 1 ppd [id number] = 38 pack years Left apical pulmonary nodule Mild ACO AAT PiMS 128 mg% Very severe OSAHS, AHI = 138 Plan: The following were reviewed and explained to the patient: [facility] split night sleep study 11/23/19 AHI = 138, Respironics medium Wisp nasal mask @ [address] 11/14/19 Left apical [address] 02/12/21 Left apical [address] 04/08/22 Left apical 3 mm nodule, no further follow up Chest x-ray 10/06/23 normal study Lab data 03/25/22 PiMS PFT 09/30/19 FEV1 1.19 L (49%) PFT 04/08/22 FEV1 1.63 L (74%), BD 350 mL = 27% PFT 02/25/23 FEV1 1.34 L (60%), BD 180 mL = 16% PFT 03/15/24 FEV1 1.41 L (65%), BD -50 mL = -4% Advised to continue not to smoke. Owzog-9-plrcrvmtlg n deficiency (AAT) information were discussed: What is alpha-1 antitrypsin deficiency? How common is alpha-1 antitrypsin deficiency? What genes are related to alpha-1 antitrypsin deficiency? How do people inherit alpha-1 antitrypsin deficiency? What other names do people use for alpha-1 antitrypsin deficiency? Who should get replacement enzymes? If agreeable, the patient will receive 60 mg/kg weekly IV infusions of alpha-1 antitrypsin protein concentrates as an augmentation therapy when both serum alpha-1 antitrypsin concentrations are below protective levels and FEV1 is less than 80% of the predicted value. Patient will encourage her 6 sisters, 4 brothers, 3 sons and 1 daughter to be tested for AAT deficiency. General information on bronchial asthma was covered. Patient will monitor peak flow daily at a set time and again when symptoms of chest tightness, cough, dyspnea or wheezing occur. Patient will bring peak flow record to subsequent visits. The color of a traffic light will guide the patient's use of asthma medications: (1) Green means Go Zone. Peak flow: above 80% of personal best. Symptoms: Breathing is good, no cough or wheeze present, patient sleeps through the night and can work and play. Plan: Patient will continue the use of preventative medicine. (2) Yellow means Caution Zone. Peak flow: between 50-80% of personal best. Symptoms: Presence of first signs of a cold, exposure to known trigger, mild wheeze, tight chest and coughing especially night. Plan: Patient will add quick-relief medicine to preventative medicine. (3) Red means Danger Zone. Peak flow: below 50% of personal best. Symptoms: Asthma is getting worse quickly and medicine is not helping, breathing is hard and fast, nose opens widely when breathing, ribs showing when breathing, and patient cannot speak in full sentences. Plan: Patient will get help from a physician immediately. Continue albuterol HFA as needed. Continue Spiriva Handihaler one daily. Continue Symbicort 160/4.5 mcg 2 puffs twice daily. Gargle after use. The patient does not know how to accurately administer the inhalers. Today, the patient was shown how to take these medications. The proper technique for delivering these medications was instructed. The patient expressed a clear understanding and demonstrated back how to use these medications. Without the proper technique, the patient will not reap the benefits of these medications as the contents will not reach the lower airways as intended to be. Adherence to therapy is advocated. Nonadherence may lead to treatment failure, further progression of the condition, and other complications. Hospitals admissions are often the result of individuals not taking prescription medications accurately. Alternatively, greater adherence to medication regimens have shown to lower rates of hospitalization and decrease total medical costs in patients with chronic medical conditions. PAP compliance downloaded and interpreted x 20 minutes. Data reviewed and explained to the patient. Average apnea/hypopnea index (AHI) is 1.9. Patient used PAP > 4 hours 88% of the time. PAP is set at 13 cmH2O. PAP will remain at 13 cmH2O. Keep ramp start at 6 cmH2O. Keep ramp duration at 20 minutes. Keep EPR + 2. Keep humidifier @ level 4. Oxygen supplementation: none Patient is benefiting from PAP therapy. Encouraged patient to maintain PAP use more than 70% of the time. Statement of PAP use and benefits will be sent to the home care store. Educated the patient on problems and solutions associated with positive airway pressure (PAP) use. Difficulty tolerating pressure, mask leaks, intolerance of interface, nasal congestion, claustrophobic response, dry mouth, and unintentional mask removal during sleep were covered. Dry mouth is a normal occurrence for people who just start out on PAP therapy because they are not used to air blowing in to the throat to hold open. Dry mouth is exacerbated for people who wear nasal PAP mask and whose jaw drops open during sleep. Not only does this create a much less efficient therapy because of leakage, it also causes dry mouth. There are a couple solutions to help prevent this type of problem. A simple solution would be to wear a chinstrap which essentially holds the jaw in place. A second solution would be a switch to a full face mask which covers both the nose and mouth. Although this is another easy solution, using a full face mask for some could seem claustrophobic or confining. There is no silver bullet solution as no single mask is right for everybody. Sometimes it takes a bit of experimentation to find a PAP mask which best meets the patient's needs as well as fits comfortably. Another tactic is to use a humidifier on your PAP machine. Most new PAP machines have integrated humidifiers. Humidification is lynn when dealing with symptoms of dry mouth because the humidifier can supply both warm and room temperate air. Even a small amount of humidity in the airflow will help nasal passages to stay hydrated. If a person is using both a full face mask and a PAP machine with a heated humidifier and is still experiencing dry mouth, an ill-fitted PAP mask might be causing the problem. Leakage can be caused by a mask that is to large or small, the wrong style mask, the cushion is degraded or simply because the mask's straps aren't adjusted correctly. If leakage occurs, dry air from the room can leak in while humidification escapes. The result is reduced humidification within the circuit and resulting in dry throat and mouth. Finally, beyond factors involving the PAP machine and mask, dry mouth can also be caused or worsened by dehydration. The general recommendation to during eight 8 oz. glasses of water a day might be too little for many people. When people drink large amounts of coffee or other caffeine beverages, or sweat a lot during the day, making sure to rehydrate is an important part of PAP therapy. Provided the patient with a list of local home care stores where positive airway pressure (PAP) units, accoutrement, and services are available. Home care store selection is based on patient's insurance carrier. Patient will setup an appointment with [facility] for supplies and pressure adjustments. A major predictor of success with use of PAP is follow-up with both the respiratory supplier and the treating physician. To help assess adherence, a downloadable card/chip is ordered with the PAP equipment. The card/chip will be downloaded by the respiratory supplier and sent to the treating physician. The download results can show the treating physician information about adherence to treatment, residual AHI while on treatment and presence of large mask leakage. This information is especially helpful if the patient has residual sleepiness despite treatment. Advocated influenza vaccination annually and pneumonia vaccination CLARE. Advocated weight loss through diet and exercise. Patient's ideal body weight according to height and gender is up to 115 lbs. Encouraged patient to adjust caloric intake to maintain/achieve ideal body weight, emphasizing on fruits, vegetables, whole grains, and fat-free or low-fat products. These include lean meats, poultry, fish, beans, eggs, and nuts and foods that are low in saturated fats, trans-fats, cholesterol, salt (sodium), and glycemic index. Stressed the importance of regular exercise up to the patient's capacity limits. In this case, we recommend regular (4 x a week or more) walking or other light activity. Patient to monitor BP daily and bring records to PCP for further management. Follow-up: 1 year, February 2025 Not available 03/15/2024 13:30:34 Plan of Treatment Reminders Order Date Submit Date Provider Last Modified By Organization Details Last Modified Time Details Appointments Establish ed Patient 15 2024 10:00A Lyn Martinez MD Not available Not available Not available Lab None recorded. Referral None recorded. Procedures None recorded. Surgeries None recorded. Imaging None recorded. Medication Orders Spiriva with HandiHale r 18 mcg and inhalatio n capsules 2022 023 [facility] [address] In [facility], [address] [place] [address], [address], 04/28/2023 11:13:25 albuterol sulfate HFA 90 mcg/actua tion aerosol inhaler 2022 023 [facility] [address] In [facility], [address] [place] [address], [address], 04/28/2023 11:13:27 Symbicort 160 mcg-4.5 mcg/actua tion HFA aerosol inhaler 2022 023 [facility] [address] In [facility], [address] [place] [address], [address], 04/28/2023 11:13:25 Spiriva with HandiHale r 18 mcg and inhalatio n capsules 2023 024 [facility] [address], [address], 10/07/2023 15:22:43 albuterol sulfate HFA 90 mcg/actua tion aerosol inhaler 2023 024 [facility] [address], [address], 10/07/2023 15:22:41 Symbicort 160 mcg-4.5 mcg/actua tion HFA aerosol inhaler 2023 024 [facility] [address] In [facility], [address] [place] [address], [address], 10/07/2023 15:22:42 Spiriva with HandiHale r 18 mcg and inhalatio n capsules 2023 024 [facility] [address] In [facility], [address] [place] [address], [address], 03/15/2024 13:17:54 albuterol sulfate HFA 90 mcg/actua tion aerosol inhaler 2023 024 [facility] [address] In [facility], [address] [place] [address], [address], 03/15/2024 13:17:55 Symbicort 160 mcg-4.5 mcg/actua tion HFA aerosol inhaler 2023 024 [facility] [address], [address], 03/15/2024 13:17:56 Patient TargetsNo targets recorded. Patient Instructions Encounter Date Encounter Id Patient Instructions Last Modified By Organization Details Last Modified Time 04/28/2023 [id number] complete PFT w/ post bronchodilator spirometry* [email or web address] Not available 05/10/2024 12:44:21 10/07/2023 [id number] complete PFT w/ post bronchodilator spirometry* [email or web address] Not available 03/14/2024 08:31:10 03/15/2024 [id number] complete PFT w/ post bronchodilator spirometry* Not available 03/15/2024 13:17:51 Reason for Referral None Reported. Results Created Date Observation Date Name Description Value Unit Range Abnormal Flag Note LastModifiedBy Organization Detail LastModifiedTime 03/25/20 22 11/23/2019 polys omnog lex, split night No observ ation record ed. [id number] Not Available 11/19/2022 06:10:07 03/27/20 22 09/30/2019 pulmo nary funct ion test* No observ ation record ed. [id number] [facility] (One Call Scheduling) [address] [place], [address], 11/19/2022 06:10:07 04/08/20 22 04/08/2022 CT, chest , w/o contr ast No observ ation record ed. [id number] [facility] Add On Lab Orders [address] [place], [address], 11/19/2022 06:10:07 04/09/20 22 04/08/2022 compl ete PFT w/ post [facility] hodil ator christopher metry * No observ ation record ed. [id number] Not Available 11/19/2022 06:10:07 04/28/20 22 2021 LDCT, chest , for lung cance r scree kesha No observ ation record ed. [id number] Not Available 11/19/2022 06:10:07 04/28/20 22 11/14/2019 LDCT, chest , for lung cance r scree kesha No observ ation record ed. [id number] Not Available 11/19/2022 06:10:07 02/27/20 23 02/25/2023 compl ete PFT w/ post [facility] hodil ator christopher metry * No observ ation record ed. BARCODE [facility] (One Call Scheduling) [address] [place], [address], 02/26/2023 10:15:24 07/07/20 23 07/06/2023 trans esoph ageal echoc ardio graph y, real- time with image docum entat ion (2D); inclu ding probe place ment, image acqui sitio n, inter preta tion and repor t (PROC ) No observ ation record ed. [address] [facility] [address], [place], [address], 08/11/2023 10:26:30 10/07/19 24 10/06/2023 XR, chest , 2 view No observ ation record ed. BARCODE Not Available 2023 16:20:55 10/07/19 24 10/06/2023 XR, chest , 2 view No observ ation record ed. BARCODE Not Available 2023 18:03:48 11/04/19 24 11/04/2023 stres s echoc ardio gram No observ ation record ed. [email or web address] [facility] [address], [place], [address], 11/06/2023 12:05:20 03/16/20 24 03/15/2024 compl ete PFT w/ post [facility] hodil ator christopher metry * No observ ation record ed. BARCODE [facility] ([facility] Scheduling) [address] [place], [address], 03/16/2024 11:41:00 Result Notes None recorded. 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, [facility] [address], [place], [address] , [facility] 4 14:49:12 Notes:Medical History: Depre ssion Postnasal drip Eosinophils 160/uL Alpha-1 antitrypsin PiMS 128 mg% Mod ACO 3 mm SURESH nodule since 11/10 Obesity with very severe OSAHS, AHI = 138, 11/23/19, on CPAP c/o IVRC Hypothyroidism Hyperlipidemia Hypertension Severe Left apical nodule LYRIC Cholelithiasis Urge urinary incontinence Vit D deficiency Thoracic spondylosis/DDD Bilateral shoulder OA Procedure History: Right ganglion cyst excision 1990 Right upper arm trauma surgery 1996 Vocal cord polypectomy 2012 Colonoscopy 2018 AV replacement 2023 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 Procedures Surgical History None recorded. Imaging Results Imaging Date Name Status LastModified by Organization Details LastModified Time 11/23/2019 polysomnogram, split night completed [id number] Information not available 11/19/2022 06:10:07 2021 LDCT, chest, for lung cancer screening completed [id number] Information not available 11/19/2022 06:10:07 11/14/2019 LDCT, chest, for lung cancer screening completed [id number] Information not available 11/19/2022 06:10:07 04/08/2022 CT, chest, w/o contrast completed [id number] [facility] Add On Lab Orders [address] [place], [address], 11/19/2022 06:10:07 04/08/2022 complete PFT w/ post bronchodilator spirometry* completed [id number] Information not available 11/19/2022 06:10:07 09/30/2019 pulmonary function test* completed [id number] [facility] ([facility] Scheduling) [address] [place], [address], 11/19/2022 06:10:07 02/25/2023 complete PFT w/ post bronchodilator spirometry* completed BARCODE [facility] ([facility] Call Scheduling) [address] [place], [address], 02/26/2023 10:15:24 07/06/2023 transesophageal echocardiography, real-time with image documentation (2D); including probe placement, image acquisition, interpretation and report (PROC) completed [email or web address] [facility] [address], [place], [address], 08/11/2023 10:26:30 10/06/2023 XR, chest, 2 view completed BARCODE Informa tion not available 10/07/2023 16:20:55 10/06/2023 XR, chest, 2 view completed BARCODE Informa tion not available 10/07/2023 18:03:48 11/04/2023 stress echocardiogram completed [facility] [address], [place], [address], 11/06/2023 12:05:20 03/15/2024 complete PFT w/ post bronchodilator spirometry* completed [facility] ([facility] Call Scheduling) [address] [place], [address], 03/16/2024 11:41:00 Procedure Notes None recorded. Medical Equipment None Reported. Allergies No known drug allergies Medications Name Sig Start Date Stop Date Status Note LastModified by Organization Details LastModified Time losartan 50 mg tablet TAKE 1 TABLET BY MOUTH EVERY DAY IN THE MORNING active Not Available Not Available No t Available cyclobenzap rine 10 mg tablet 10/29 completed Not Available Not Available Not Available furosemide 40 mg tablet TAKE 1 TABLET BY MOUTH EVERY OTHER DAY active Not Available Not Available No t Available Qvar 80 mcg/actuati on Metered Aerosol oral inhaler 03/19 completed Not Available Not Available Not Available levothyroxi ne 137 mcg tablet 10/29 completed Not Available Not Available Not Available citalopram 40 mg tablet 10/07 completed Not Available Not Available Not Available ampicillin 500 mg capsule 10/28 completed Not Available Not Available Not Available prednisone 20 mg tablet 04/30 completed Not Available Not Available Not Available metronidazo le 500 mg tablet TAKE 1 TABLET BY MOUTH TWICE A DAY FOR 7 DAYS 10/29 completed Not Available Not Available Not Available clopidogrel 75 mg tablet TAKE 1 TABLET BY MOUTH EVERY DAY active Not Available Not Available No t Available ciprofloxac in 500 mg tablet Take 1 tablet every 12 hours by oral route for 2 days. 10/29 completed Not Available Not Available Not Available citalopram 20 mg tablet 03/19 completed Not Available Not Available Not Available pravastatin 10 mg tablet TAKE 1 TABLET BY MOUTH EVERY DAY IN THE EVENING active Not Available Not Available No t Available baclofen 10 mg tablet 03/26 completed Not Available Not Available Not Available levothyroxi ne 150 mcg tablet TAKE 1 TABLET BY MOUTH EVERY DAY IN THE MORNING active Not Available Not Available No t Available aspirin 81 mg chewable tablet TAKE 1 TABLET BY MOUTH EVERY DAY active Not Available Not Available No t Available albuterol sulfate HFA 90 mcg/actuati on aerosol inhaler Inhale 1 puff every 4 hours by inhalatio n route as needed. 2023 active Not Available Not Available Not Avai lable nicotine 7 mg/24 hr daily transdermal patch 03/26 completed Not Available Not Available Not Available bupropion HCl SR 200 mg tablet,12 hr sustained-r elease TAKE 1 TABLET BY MOUTH TWICE A DAY WITH MEALS FOR 30 DAYS 03/15 completed Not Available Not Available Not Available nicotine (polacrilex ) 4 mg buccal lozenge 03/26 completed Not Available Not Available Not Available Spiriva with HandiHaler 18 mcg and inhalation capsules Inhale 1 capsule every day by inhalatio n route. 2023 active Not Available Not Available Not Avai lable levothyroxi ne 10/29 completed Not Available Not Available Not Available baclofen 10/29 completed Not Available Not Available Not Available Vitamin D 03/15 completed Not Available Not Available Not Available losartan 10/29 completed Not Available Not Available Not Available Wellbutrin SR 03/19 completed Not Available Not Available Not Available ProAir HFA 10/29 completed Not Available Not Available Not Available Symbicort 160 mcg-4.5 mcg/actuati on HFA aerosol inhaler TAKE 2 PUFFS BY MOUTH TWICE A DAY active Not Available Not Available No t Available Myrbetriq 25 mg tablet,exte nded release TAKE 1 TABLET BY MOUTH EVERY DAY active Not Available Not Available No t Available Afluria Qd (36 mos up)(PF)60 mcg (15 mcg x4)/0.5 mL IM syringe ADM 0.5ML IM UTD 10/29 completed Not Available Not Available Not Available Vitals Date Recorded Body mass index (BMI) Heart rate Body height Oxygen saturation Oxygen saturation in Arterial blood by Pulse oximetry Heart rate Respiratory rate Body temperature Body weight Systolic blood pressure Diastolic blood pressure Provider Name and Address Organization Details Last Updated DateTime 2 61.6 kg/m2 93 /min 154.94 cm 97 % 97 % 93 /min 15 /min 98.3 [degF] 440445. 11 g 140 mm[Hg] 90 mm[Hg] Not Available [facility] 3 06:00:04 Date Recorded Body mass index (BMI) Body height Oxygen saturation Oxygen saturation in Arterial blood by Pulse oximetry Heart rate Body temperature Body weight Systolic blood pressure Diastolic blood pressure Provider Name and Address Organization Details Last Updated DateTime 2 60.6 kg/m2 154.94 cm 97 % 97 % 86 /min 96.3 [degF] 689800. 43 g 130 mm[Hg] 74 mm[Hg] Not Available [facility] 3 06:00:05 Date Recorded Body height Body mass index (BMI) Body weight Body temperature Heart rate Oxygen saturation Oxygen saturation in Arterial blood by Pulse oximetry Systolic blood pressure Diastolic blood pressure Provider Name and Address Organization Details Last Updated DateTime 3 154.94 cm 59 kg/m2 952711. 82 g 98.4 [degF] 93 /min 96 % 96 % 126 mm[Hg] 72 mm[Hg] Hanh Bowser MA [facility] 5 CUPS and some sugar 3 11:00:29 Date Recorded Heart rate Respiratory rate Provider N raghavendra and Address Organization Details Last Updated DateTime 04/28/2023 93 /min 15 /min Vinnie Martinez MD [address] [place] [address], [id number], [facility] 5 CUPS and some sugar 04/28/2023 11:19:34 Date Recorded Body height Body mass index (BMI) Body weight Body temperature Heart rate Oxygen saturation Oxygen saturation in Arterial blood by Pulse oximetry Systolic blood pressure Diastolic blood pressure Provider Name and Address Organization Details Last Updated DateTime 4 154.94 cm 59.3 kg/m2 919254 g 97.7 [degF] 86 /min 97 % 97 % 124 mm[Hg] 68 mm[Hg] Hanh Bowser MA [facility] [employer] 15:07:44 Date Recorded Heart rate Respiratory rate Provider N raghavendra and Address Organization Details Last Updated DateTime 10/07/2023 86 /min 15 /min Vinnie Martinez MD [address], [place] [address], [place], [address], [facility] [employer] 10/07/2023 15:25:40 Date Recorded Body height Body mass index (BMI) Body weight Oxygen saturation Oxygen saturation in Arterial blood by Pulse oximetry Heart rate Systolic blood pressure Diastolic blood pressure Provider Name and Address Organization Details Last Updated DateTime 154.94 cm 59 kg/m2 421374. 82 g 96 % 96 % 90 /min 122 mm[Hg] 70 mm[Hg] Costa Lemus CMA [facility] [employer] 12:42:12 Date Recorded Body temperature Heart rate Respiratory rate Provider Name and Address Organization Details Last Updated DateTime 03/15/2024 97.3 [degF] 90 /min 15 /min Vinnie Martinez MD [address], [address], [address], [facility] [employer] 03/15/2024 13:30:13 Social History Question Answer Notes LastModified by Organizat ion Details LastModified Time Tobacco Smoking Status Former Smoker quit in 2015 Not Available [facility] 11/19/2022 05:54:49 In The 14 Days Before Symptom Onset, Have You Had Close Contact With A Laboratory-confir med COVID-19 While That Case Was Ill? No [id number] Information not available 11/19/2022 In The 14 Days Before Symptom Onset, Have You Had Close Contact With A Person Who Is Under Investigation For COVID-19 While That Person Was Ill? No [id number] Information not available 11/19/2022 What Type Of Diet Are You Following? REGULAR Information not available 10/07/2023 Do You Have An Electrostatic Air Filter? No Information not available 04/28/2023 Have You Been Exposed To Chemicals Or Toxins? Yes Information not available 04/28/2023 Do You Have A Humidifier? No Information not available 04/28/2023 Do You Have Moisture Problems In Your Home? No Information not available 04/28/2023 What Was The Date Of Your Most Recent Tobacco Screening? 10/07/2023 Information not available 10/07/2023 Do You Have Any Pets? Yes Information not available 04/28/2023 Do You Have Smoke And Carbon Monoxide Detectors In Your Home? Yes Information not available 04/28/2023 Are You Passively Exposed To Smoke? No Information no t available 04/28/2023 Do You Use Sunscreen Routinely? No Information not available 04/28/2023 Have You Recently Traveled Abroad? No [id number] Information not available 11/19/2022 Do You Have Any Dietary Restrictions? No Information not available 10/07/2023 Sex: Unknown Functional Status Question Answer Note LastModified by Organizat ion Details LastModified Time What is your exercise level? Occasional Information not available 10/07/2023 Mental Status None recorded. Family History Relationship Description Onset Age of this Age Resolved Age Notes LastModified by Organization Details LastModified Time Sister Family history of malignant neoplasm [id number] Not available 11/19/2022 05:57:05 Sister Chronic obstructive pulmonary disease [id number] Not available 11/19/2022 05:57:05 Father Myocardial infarction [id number] Not available 11/19/2022 05:57:06 Son Asthma [id number] Not available 11/19/2022 05:57:06 Medical History No medical history recorded. Gynecological HistoryNo gynecological history recorded. Obstetrics History GPAL:G 0 P 0 0 0 0 Immunizations Vaccine Type Date Status Note Provider Nam e and Address Organization Details Recorded Time COVID-19, mRNA, LNP-S, PF, 30 mcg/0.3 mL dose 2 completed Not Available [facility] 03/30/2023 16:13:27 COVID-19, mRNA, LNP-S, PF, 30 mcg/0.3 mL dose 1 completed Not Available [facility] 03/30/2023 16:13:27 COVID-19, mRNA, LNP-S, PF, 30 mcg/0.3 mL dose 1 completed Not Available [facility] 03/30/2023 16:13:27 Influenza, split virus, quadrivalent, preservative 0 completed Not Available [facility] 03/30/2023 16:13:27 Past Encounters Encounter ID Performer Location Encounter Start Date Encounter Closed Date Diagnosis/Indication Diagnosis SNOMED-CT Code Diagnosis ICD10 Code Diagnosis Note [id number] [facility] [address] [address] 03/26/2022 00:00:00 03/26/2022 11:24:25 [id number] [facility] [address] [address] 04/28/2022 00:00:00 04/28/2022 15:42:25 [id number] Vinnie Martinez MD [facility] [address] [address] 04/28/2023 10:19:01 04/28/2023 15:20:45 Solitary nodule of lung 554931346 R91.1 Asthma-chr onic obstructive pulmonary disease overlap syndrome 1850785735 1072771 J44.9 Obstructiv e sleep apnea syndrome 96232486 G47.33 [id number] Vinnie Martinez MD [facility] [address] 10/07/2023 14:43:48 10/08/2023 08:14:36 Asthma-chronic obstructive pulmonary disease overlap syndrome 8390962451 1437091 J44.9 Solitary n odule of lung 882788631 R91.1 Obstructiv e sleep apnea syndrome 47684568 G47.33 [id number] Vinnie Martinez MD [facility] [address] [address] 03/15/2024 11:44:04 03/16/2024 08:17:58 Asthma-chronic obstructive pulmonary disease overlap syndrome 3152896789 5096859 J44.9 Solitary n odule of lung 564768993 R91.1 Obstructiv e sleep apnea syndrome 25575574 G47.33 Health Concerns Section Related Observation LastModified by Organization Detai ls LastModified Time None Recorded Concern Status LastModified by Organization Details LastModified Time None Recorded Advance Directives Directive None Recorded Payers Encounter Date Sequence Insurance Name Policy Number Policy Hill Covered Member ID Hill Member ID Guarantor Name 04/28/[address] [facility] (MEDICARE REPLACEMENT/A DVANTAGE - PPO) [id number] Laurel Sam Valdes [id number] Laurel Valdes 10/07/[address] [facility] (MEDICARE REPLACEMENT/A DVANTAGE - PPO) [id number] Laurelneida Valdes [id number] Laurel Rinaldispan 03/15/[address] [facility] (MEDICARE REPLACEMENT/A DVANTAGE - PPO) [id number] Laurelneida Rinaldispan [id number] Laurel Valdes Notes Date Note Type Note Provider Name and Address Organization Details Recorded Time 04/28/2023 text/html Primary care/Ref erring provider: Feliciano Griffin MD; FRANCIS Jiménez-CPatient is here to go over her ACO management.Initial development of shortness of breath: 2014Duration of shortness of breath: 9 yearsCondition of shortness of breath: stableTiming of shortness of breath: noneFrequency: up to 8 times a dayLimits activities: yesAggravating factors: walking, going up stairs, heatAlleviating factors: restModified Medical Research [employer] [place] (mMRC) Dyspnea Scale - Grade 2Grade 0 ? I only get breathless with strenuous exercise? .Grade 1 ? I get short of breath when hurrying on the level or walking up a slight hill? .Grade 2 ? I walk slower than people of the same age on the level because of breathlessness or have to stop for breath when walking at my own pace on the level? .Grade 3 ? I stop for breath after walking about 100 yards or after a few minutes on the level? .Grade 4 ? I am too breathless to leave the house? or ? I am breathless when dressing? .Treatment history:albuterol HFA as needed since 2013QVAR 80 mcg 2 puffs BID 2013-2014Spiriva Handihaler one daily since 2019Symbicort 160/4.5 mcg 2 puffs daily since 2019 Patient's personal best peak flow remains at 350 L/min.Other symptoms:Productive cough: whiteWheezing: yesChest tightness: yesOrthopnea: noFrequent throat clearing or swallowing: yesPalpitations: noHeartburn: noDysphagia: noEdema: yesEnvironmental exposures:Nicotine smoke: 1 ppd 8903-9850 = 38 pack yearsPaint: noDye: noDust mites: yesMold: noDamp basement: yes until 1971Wood burning stove: noAnimal dander: catCockroaches: noPollen: yesArsenic: noAsbestos: noBeryllium: noCadmium: noChromium: noCoal smoke: noDiesel fumes: noNickel: noSilica: noSoot: noAt home since 04/28/22, the patient uses a [employer] AirSense 10 autoset unit with heated humidification. The patient does not need the ramp to start low and go up slowly on the pressure anymore. There is some xerostomia in a.m. There is no hose/mask condensation with water.The patient wears a [employer] small AirFit F30 full face mask without chin strap. There is no claustrophobia, no nostril/nose bridge irritation, no facial rash, no facial numbness, no nosebleeding.The patient feels more refreshed upon waking and daytime alertness is improved. Energy levels are sustained for the remainder of the day.At home, the patient sleeps from 11 pm to 7 am and wakes up without an alarm.Snoring: moderate, since .Snorting: noChoking: yesCoughing: noGasping: yesGagging: noSighing: noWitnessed apnea: yesTwitching or jerking of leg(s), arm(s), body, head: noTeeth grinding: noTeeth clenching: noSleeptalking: yesSleepwalking: noSleep crying: yesBedwetting: noTongue/lip/gum/cheek biting: noSleeping with open mouth: yesSleep paralysis: noHypnagogic hallucinations: noHypnopompic hallucinations: yes seeing , people with white robesVivid dreams: yesDifficulty with sleep onset: noDifficulty with sleep maintenance: yesSleep interruptions: nightmaresPatient wakes up with: fatigue, xerostomia, sore throat, hoarse voice, headachesDaytime cataplexy: noMorning hypersomnolence: noAfternoon hypersomnolence: yesCaffeine sources in diet: coffee 6 cups per day, tea 1/2 cup per week, soda 1/2 bottle per week, chocolate 1/2 candy bar per weekAssociated medical and psychiatric conditions:Congestive heart failure: noCoronary artery disease: noMyocardial infarction: noHypertension: yesStroke: noBronchial asthma: noChronic obstructive pulmonary disease: noDepression: yesBipolar disorder: noAnxiety: noPanic disorder: noPosttraumatic stress disorder: noAttention deficit and hyperactivity disorder: noObsessive Compulsive disorder: noSchizophrenia: noSchizoaffective disorder: noPersonality disorder: noChronic analgesic use: noChronic sedative/hypnotic use: noEPWORTH SLEEPINESS SCALE (ESS)CHANCE OF DOZING SCORE0 = would never doze1 = slight chance of dozing2 = moderate chance of dozing3 = high chance of dozingSITUATION AND CHANCE OF DOZINGSitting and reading - 2Watching television - 1Sitting inactive in a public place (e.g. a theater or meeting) - 0As a passenger in a car for an hour without a break - 0Lying down to rest in the afternoon when circumstances permit - 0Sitting and talking to someone - 0Sitting quietly after lunch without alcohol - 0In a car, while stopped for a few minutes in the traffic - 0TOTAL SCORE 3Subjectively, patient has a slight chance of dozing. Vinnie Martinez MD [address] [place] [address], [phone], [place] [facility] [employer] 04/28/2023 11:19:45 10/07/2023 text/html Primary care/Ref erring provider: Feliciano Griffin MD; Yemi Pandya PA-C CC: Patient is here for surgical clearance. She has severe . Her aortic valve replacement is scheduled for 10/20/23. Fax number is [phone].Patient is here to go over her ACO management.Initial development of shortness of breath: 2014Duration of shortness of breath: 9 yearsCondition of shortness of breath: stableTiming of shortness of breath: noneFrequency: up to 8 times a dayLimits activities: yesAggravating factors: walking, going up stairs, heatAlleviating factors: restModified Medical Research Confederated [place] (mMRC) Dyspnea Scale - Grade 2Grade 0 ? I only get breathless with strenuous exercise? .Grade 1 ? I get short of breath when hurrying on the level or walking up a slight hill? .Grade 2 ? I walk slower than people of the same age on the level because of breathlessness or have to stop for breath when walking at my own pace on the level? .Grade 3 ? I stop for breath after walking about 100 yards or after a few minutes on the level? .Grade 4 ? I am too breathless to leave the house? or ? I am breathless when dressing? .Treatment history:albuterol HFA as needed since 2013QVAR 80 mcg 2 puffs BID 2013-2014Spiriva Handihaler one daily since 2019Symbicort 160/4.5 mcg 2 puffs daily since 2019 Patient's personal best peak flow has increased from 350 to 380 L/min.Other symptoms:Productive cough: whiteWheezing: yesChest tightness: yesOrthopnea: noFrequent throat clearing or swallowing: yesPalpitations: noHeartburn: noDysphagia: noEdema: yesEnvironmental exposures:Nicotine smoke: 1 ppd [id number] = 38 pack yearsPaint: noDye: noDust mites: yesMold: noDamp basement: yes until 1971Wood burning stove: noAnimal dander: catCockroaches: noPollen: yesArsenic: noAsbestos: noBeryllium: noCadmium: noChromium: noCoal smoke: noDiesel fumes: noNickel: noSilica: noSoot: noAt home since 04/28/23, the patient uses a ResMed AirSense 10 autoset unit with heated humidification. The patient does not need the ramp to start low and go up slowly on the pressure anymore. There is some xerostomia in a.m. There is no hose/mask condensation with water.The patient wears a ResMed small AirFit F30 full face mask without chin strap. There is no claustrophobia, no nostril/nose bridge irritation, no facial rash, no facial numbness, no nosebleeding.The patient feels more refreshed upon waking and daytime alertness is improved. Energy levels are sustained for the remainder of the day.At home, the patient sleeps from 11 pm to 7 am and wakes up without an alarm.Snoring: moderate, since .Snorting: noChoking: yesCoughing: noGasping: yesGagging: noSighing: noWitnessed apnea: yesTwitching or jerking of leg(s), arm(s), body, head: noTeeth grinding: noTeeth clenching: noSleeptalking: yesSleepwalking: noSleep crying: yesBedwetting: noTongue/lip/gum/cheek biting: noSleeping with open mouth: yesSleep paralysis: noHypnagogic hallucinations: noHypnopompic hallucinations: yes seeing , people with white robesVivid dreams: yesDifficulty with sleep onset: noDifficulty with sleep maintenance: yesSleep interruptions: nightmaresPatient wakes up with: fatigue, xerostomia, sore throat, hoarse voice, headachesDaytime cataplexy: noMorning hypersomnolence: noAfternoon hypersomnolence: yesCaffeine sources in diet: coffee 6 cups per day, tea 1/2 cup per week, soda 1/2 bottle per week, chocolate 1/2 candy bar per weekAssociated medical and psychiatric conditions:Congestive heart failure: noCoronary artery disease: noMyocardial infarction: noHypertension: yesStroke: noBronchial asthma: noChronic obstructive pulmonary disease: noDepression: yesBipolar disorder: noAnxiety: noPanic disorder: noPosttraumatic stress disorder: noAttention deficit and hyperactivity disorder: noObsessive Compulsive disorder: noSchizophrenia: noSchizoaffective disorder: noPersonality disorder: noChronic analgesic use: noChronic sedative/hypnotic use: noEPWORTH SLEEPINESS SCALE (ESS)CHANCE OF DOZING SCORE0 = would never doze1 = slight chance of dozing2 = moderate chance of dozing3 = high chance of dozingSITUATION AND CHANCE OF DOZINGSitting and reading - 0Watching television - 0Sitting inactive in a public place (e.g. a theater or meeting) - 0As a passenger in a car for an hour without a break - 0Lying down to rest in the afternoon when circumstances permit - 2Sitting and talking to someone - 0Sitting quietly after lunch without alcohol - 1In a car, while stopped for a few minutes in the traffic - 0TOTAL SCORE 3Subjectively, patient has a slight chance of dozing. Vinnie Martinez MD [address] [place] [address], [phone], [facility] [employer] 10/07/2023 15:31:10 03/15/2024 text/html Primary care/Ref erring provider: Feliciano Griffin MD; FRANCIS Jiménez-CPatient is here to go over her ACO management.Initial development of shortness of breath: 2014Duration of shortness of breath: 10 yearsCondition of shortness of breath: stableTiming of shortness of breath: noneFrequency: up to 8 times a dayLimits activities: yesAggravating factors: walking, going up stairs, heatAlleviating factors: restModified Medical Research Confederated [place] (mMRC) Dyspnea Scale - Grade 2Grade 0 ? I only get breathless with strenuous exercise? .Grade 1 ? I get short of breath when hurrying on the level or walking up a slight hill? .Grade 2 ? I walk slower than people of the same age on the level because of breathlessness or have to stop for breath when walking at my own pace on the level? .Grade 3 ? I stop for breath after walking about 100 yards or after a few minutes on the level? .Grade 4 ? I am too breathless to leave the house? or ? I am breathless when dressing? .Treatment history:albuterol HFA as needed since 2013QVAR 80 mcg 2 puffs BID 2013-2014Spiriva Handihaler one daily since 2019Symbicort 160/4.5 mcg 2 puffs daily since 2019 Patient's personal best peak flow remains at 380 L/min.Other symptoms:Productive cough: whiteWheezing: yesChest tightness: yesOrthopnea: noFrequent throat clearing or swallowing: yesPalpitations: noHeartburn: noDysphagia: noEdema: yesEnvironmental exposures:Nicotine smoke: 1 ppd 8592-1970 = 38 pack yearsPaint: noDye: noDust mites: yesMold: noDamp basement: yes until 1971Wood burning stove: noAnimal dander: catCockroaches: noPollen: yesArsenic: noAsbestos: noBeryllium: noCadmium: noChromium: noCoal smoke: noDiesel fumes: noNickel: noSilica: noSoot: noAt home since 10/07/23, the patient uses a ResMed AirSense 10 autoset unit with heated humidification. The patient does not need the ramp to start low and go up slowly on the pressure anymore. There is some xerostomia in a.m. There is no hose/mask condensation with water.The patient wears a ResMed small AirFit F30 full face mask without chin strap. There is no claustrophobia, no nostril/nose bridge irritation, no facial rash, no facial numbness, no nosebleeding.The patient feels more refreshed upon waking and daytime alertness is improved. Energy levels are sustained for the remainder of the day.At home, the patient sleeps from 11 pm to 7 am and wakes up without an alarm.Snoring: moderate, since .Snorting: noChoking: yesCoughing: noGasping: yesGagging: noSighing: noWitnessed apnea: yesTwitching or jerking of leg(s), arm(s), body, head: noTeeth grinding: noTeeth clenching: noSleeptalking: yesSleepwalking: noSleep crying: yesBedwetting: noTongue/lip/gum/cheek biting: noSleeping with open mouth: yesSleep paralysis: noHypnagogic hallucinations: noHypnopompic hallucinations: yes seeing , people with white robesVivid dreams: yesDifficulty with sleep onset: noDifficulty with sleep maintenance: yesSleep interruptions: nightmaresPatient wakes up with: fatigue, xerostomia, sore throat, hoarse voice, headachesDaytime cataplexy: noMorning hypersomnolence: noAfternoon hypersomnolence: yesCaffeine sources in diet: coffee 6 cups per day, tea 1/2 cup per week, soda 1/2 bottle per week, chocolate 1/2 candy bar per weekAssociated medical and psychiatric conditions:Congestive heart failure: noCoronary artery disease: noMyocardial infarction: noHypertension: yesStroke: noBronchial asthma: noChronic obstructive pulmonary disease: noDepression: yesBipolar disorder: noAnxiety: noPanic disorder: noPosttraumatic stress disorder: noAttention deficit and hyperactivity disorder: noObsessive Compulsive disorder: noSchizophrenia: noSchizoaffective disorder: noPersonality disorder: noChronic analgesic use: noChronic sedative/hypnotic use: noEPWORTH SLEEPINESS SCALE (ESS)CHANCE OF DOZING SCORE0 = would never doze1 = slight chance of dozing2 = moderate chance of dozing3 = high chance of dozingSITUATION AND CHANCE OF DOZINGSitting and reading - 1Watching television - 0Sitting inactive in a public place (e.g. a theater or meeting) - 0As a passenger in a car for an hour without a break - 0Lying down to rest in the afternoon when circumstances permit - 1Sitting and talking to someone - 0Sitting quietly after lunch without alcohol - 0In a car, while stopped for a few minutes in the traffic - 0TOTAL SCORE 2Subjectively, patient has a slight chance of dozing. Vinnie Martinez MD [address] [place] [address], [facility] [address], [place], [address], [place] [facility] [place] [employer] 03/15/2024 13:30:42 OBGyn Episode No OBEpisode recorded.
--- OUTSIDE RECORDS SUMMARY | 2024-10-18 06:47 | XMS_ITS | Clinical Summary ---
Author Organization [facility] Address [address] [place] [id number] Phone Care Team Providers Care Executive Steward Name Role Phone Daylin Lawrence MD Primary Care Provider Medications Medication Sig Dispensed Refills Start Date End Date Status albuterol (2.5 MG/3ML) 0.083% nebulizer solution as needed 0 06/30/2016 Active baclofen (LIORESAL) 10 MG tablet 1 tab daily 0 09/01/2017 Active busPIRone (BUSPAR) 10 MG tablet 1 tab daily 0 09/01/2017 Active budesonide-formote rol (SYMBICORT) 160-4.5 MCG/ACT inhaler 2 puffs every 4-6hrs as needed 0 09/01/2017 Active ergocalciferol (VITAMIN D2) 52527 units capsule 1 cap daily 0 09/01/2017 Active ampicillin (PRINCIPEN) 500 MG capsule ampicillin 500 mg capsule Active citalopram (CeleXA) 20 MG tablet citalopram 20 mg tablet Active cyclobenzaprine (FLEXERIL) 10 MG tablet cyclobenzaprine 10 mg tablet Active pravastatin (PRAVACHOL) 10 MG tablet pravastatin 10 mg tablet Active SPIRIVA HANDIHALER 18 MCG per inhalation capsule 10/23/2019 Active levothyroxine (SYNTHROID, LEVOTHROID) 137 MCG tablet 10/23/2019 Active Active Problems Problem Noted Date Diagnosed Date Hyperlipidemia 11/01/2019 Essential (primary) hypertension 06/18/2017 Other microscopic hematuria 06/30/2016 Overview (12/04/2018): Converted unresolved ICD9, potential mismatch. Urinary tract infection 06/30/2016 Obesity 06/30/2016 Immunizations Name Administration Dates Next Due Influenza TIV (IM) 06/04/2016 Family History Medical History Relation Comments Kidney disease Relative Diabetes mellitus Sibling Relation Status Comments Relative Sibling Social History Tobacco Use Types Packs/Day Years Used Date Smoking Tobacco: Never Assessed Sex and Gender Information Value Date Recorded Sex Assigned at Not on file Gender Identity Not on file Sexual Orientation Not on file Last Filed Vital Signs Vital Sign Reading Time Taken Comments Blood Pressure 158/82 11/01/2019 11:15 AM HEAD LOFT WORKER Pulse 104 11/01/2019 11:14 AM HEAD LOFT WORKER Temperature - - Respiratory Rate - - Oxygen Saturation - - Inhaled Oxygen Concentration - - Weight 158 kg (349 lb) 11/01/2019 11:14 AM HEAD LOFT WORKER Height 157.5 cm (5' 2 ) 11/01/2019 11:14 AM HEAD LOFT WORKER Body Mass Index 63.83 11/01/2019 11:14 AM HEAD LOFT WORKER Plan of Treatment Health Maintenance Due Date Last Done Comments Influenza Vaccine (#1) 2024 06/04/2016 Care Teams Executive Steward Relationship Specialty Start Date End Date Daylin Lawrence MD [address] [place] [address] PCP - General 11/02/19
--- OUTSIDE RECORDS SUMMARY | 2024-10-18 06:47 | XMS_ITS ---
Author Organization [facility] Address [address] [facility] [address] [facility] [address] [place] [address] Care Team Providers Care Production Supv Name Role Phone Everette Griffin Unavailable [phone] PROBLEMS Problem Type ICD Code Onset Dates Problem Status W/U Status Risk SNOMED Code Notes Problem Chronic kidney disease, stage 3 unspecified (N18.30) Active confirmed Chronic kidney disease stage 3 (disorder) (805451835) Problem Type 2 diabetes mellitus with diabetic chronic kidney disease (E11.22) Active confirmed Diabetic renal disease (420033117) Problem Essential hypertension (I10) Active confirmed Essential hypertension (46397809) Problem 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) Active confirmed Aortic kang ve disorder (0736105) Problem Hypothyroidism, unspecified (E03.9) Active confirmed Hypothyr oidism (35855932) Problem Chronic obstructive pulmonary disease, unspecified (J44.9) Active confirmed Chronic obstructive pulmonary disease (29190664) Problem Obesity, unspecified (E66.9) Active confirmed Obesity (649038822) Problem Edema, unspecified (R60.9) Active confirmed Edema (48598757) Problem Chronic kidney disease, stage 4 (severe) (N18.4) Active confirmed Chronic kid mindy disease stage 4 (498356682) Problem Renal osteodystrophy (N25.0) Active confirmed Renal osteodyst rophy (41618514) Problem Secondary hyperparathyroidism of renal origin (N25.81) Active confirmed Secondary hyperparathyroidism of renal origin (12642697) Encounters Encounter Location Date Provider Diagnosis [facility] [address] [facility] [address] [place] [address] 10/12/2024 Everette Griffin Chronic kidney disea se, [...] Notes Treatment Clinical Notes Section Notes 10/12/2024 Chronic kidney disea se, stage 4 (severe) (ICD-10 - N18.4) 10/12/2024 Type 2 diabetes mellitus with diabetic chronic kidney disease (ICD-10 - E11.22) 10/12/2024 Proteinuria, unspecified (ICD-10 - R80.9) 10/12/2024 Essential hypertensi on (ICD-10 - I10) 10/12/2024 Renal osteodystrophy (ICD-10 - N25.0) 10/12/2024 Secondary hyperparathyroidism of renal origin (ICD-10 - N25.81) 10/12/2024 Acute metabolic acidosis (ICD-10 - E87.21) 10/12/2024 Obesity, unspecified (ICD-10 - E66.9) PLAN OF TREATMENT Next Appt Details Provider Name:Everette Griffin , 10/26/2024 03:00:00 PM, [address] [facility] [address], [place], [address], Progress Notes * DOMINIC MARQUEZOB:[birth year] (59 yo F)Acc No.[id number]:10/12/2024 Progress Notes Patient:??CONRADO MARQUEZ Provider:??MD BAR, F.A.C.P, F.A.S .N. :1965?Age:59 Y?Sex:Fe male Date:10/12/2024 Address:[address] [place] [address] Subjective: * Chief Complaints: * ? * Medical History:?? Objective: Assessment: * Assessment: 1.??Chronic kidney disease, stage 4 (severe) - N18.4 (Primary)??2.??Type 2 diabetes mellitus with diabetic chronic kidney disease - E11.22??3.??Proteinuria, unspecified - R80.9??4.??Essential hypertension - I10??5.??Renal osteodystrophy - N25.0??6.??Secondary hyperparathyroidism of renal origin - N25.81??7.??Acute metabolic acidosis - E87.21??8.??Obesity, unspecified - E66.9?? Plan: * Treatment: * Billing Information: * Visit Code:?? 35746 Office Visit, New Pt., Level 4. * Procedure Codes:?? * GER OF SOFTWARE Sign off status: Pending * Provider:??MD BAR, F.A.C.P, F.A.S .N. Date:??10/12/2024
--- OUTSIDE RECORDS SUMMARY | 2024-10-18 06:48 | XMS_ITS | Referral Summary ---
Author Organization [facility] Address [address] [place] [address] Care Team Providers Care College Tutor Name Role Phone Daylin Lawrence MD Primary Care Provider [phone] Bry Castillo MD Unavailable [phone] Allergies No known active allergies Medications albuterol [...] Converted unresolved ICD9, potential mismatch. 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 Gender Identity Not on file Sexual Orientation Not on file Last Filed Vital Signs Vital Sign Reading Time Taken Comments Blood Pressure 129/72 10/21/2023 8:13 AM POT PUNCHER Pulse 88 10/21/2023 8:13 AM POT PUNCHER Temperature 36.8 ??C (98.2 ??F) 10/21/2023 8:13 AM CS T Respiratory Rate 18 10/21/2023 4:00 AM POT PUNCHER Oxygen Saturation 97% 10/21/2023 8:13 AM POT PUNCHER Inhaled Oxygen Concentration - - Weight 143.7 kg (316 lb 14.4 oz) 10/21/2023 5:54 AM POT PUNCHER Height 154.9 cm (5' 1 ) 10/20/2023 7:07 AM POT PUNCHER Body Mass Index 59.88 10/20/2023 7:07 AM POT PUNCHER Plan of Treatment Not on file Medical Devices Implanted Type Area Piecer Device Identifier Shelf Expiration Date Model / Serial / Lot [employer] Device Clsr Perclose Prostyle Sut-Mediatd Closure-Repair Sys 25068-44 - [id number] Implanted:Qty: 1 on 10/20/2023 by Bry Castillo MD at [facility] [employer] 07/21/2025 [id number] / / [id number] [employer] Device Clsr Perclose Prostyle Sut-Mediatd Closure-Repair Sys 74019-70 - [id number] Implanted:Qty: 1 on 10/20/2023 by Bry Castillo MD at [facility] [employer] 07/21/2025 [id number] / / [id number] [employer] Valve Aortic Trnscath Neli 3 Ultra Resilia 26mm [id number] - [id number] - [id number] Implanted:Qty: 1 on 10/20/2023 by Bry Castillo MD at [facility] [employer] 02/08/2026 [id number] / [id number] / [employer]am Angio-Seal Vip 6fr Closere Device [id number] - [id number] Implanted:Qty: 1 on 10/20/2023 by Bry Castillo MD at [facility]am [id number] / / Insurance MEDICARE [facility] Address: [address] [address] [place] [address] MEDICARE [employer] [facility] Address: [address] [address] [place] [address] Care Teams College Tutor Relationship Specialty Start Date End Date Daylin Lawrence MD [address] [place] [address] PCP - General Internal Medicine 08/21/23 Bry Castillo MD [address] [place] [address] Consulting Physician Cardiovascular Disease 10/21/23
[2024-10-18 08:09] LABS: Complement C3 191 mg/dL (88-165)
[2024-10-18 08:10] LABS: Add Urine Microscopic? YES; Appearance Urine Cloudy (Clear); Bacteria Urine 4+ /hpf; Bilirubin Urine Negative (Negative); Blood Urine 3+ (Negative); Color Urine Yellow (Yellow); Glucose Urine UA Negative (Negative); Ketones Urine Negative (Negative); Leukocyte Esterase Ur 3+ LEU/UL (Negative); Need Manual Microscopic Reviewed; Nitrate Urine Positive (Negative); Protein Urine Trace mg/dL (Negative); RBC Urine 51-100 /hpf (0-2); Specific Grav Ur 1.006 (1.001-1.035); Squamous Epithelial Cell Urine Occasional /hpf (Few); Urobilinogen Urine 0.2 mg/dL (<2.0); WBC Urine 51-100 /hpf (0-3)
[2024-10-18 08:11] LABS: Parathyroid Intact 81.7 pg/mL (14.5-75.2)
[2024-10-18 08:38] LABS: Alanine Aminotransferase 24 U/L (6-35); Albumin Level 4.4 g/dL (3.5-5.1); Alkaline Phosphatase 96 U/L (38-126); Anion Gap 9 mmol/L (4-12); Aspartate Amino Transferase 22 U/L (14-36); Bilirubin,Total 0.5 mg/dL (0.2-1.3); Blood Urea Nitrogen 18 mg/dL (7-17); Calcium 9.3 mg/dL (8.4-10.2); Carbon Dioxide 26 mmol/L (22-30); Chloride 104 mmol/L (98-107); Estimated Glomerular Filt Rate > 60; Glucose 85 mg/dL (65-110); Potassium 4.2 mmol/L (3.4-5.0); Sodium 139 mmol/L (137-145); Uric Acid 7.3 mg/dL (2.5-7.5)
[2024-10-18 09:17] LABS: HIV 1/2 Ab P24 Ag Result Negative (Negative)
[2024-10-18 10:46] LABS: Creatinine Urine 38.4 mg/dL
[2024-10-18 10:51] LABS: MALB Creatinine Ratio 99.7 mg/g (0-30); Microalbumin Urine Random 38.3 mg/L (0-16.7)
[2024-10-18 10:54] LABS: Rapid Plasma Reagin Non-Reactive (NonReactive)
[2024-10-18 11:01] LABS: Vitamin D 25 Hydroxy 88.9 ng/mL
[2024-10-19 14:24] LABS: Complement Total CH50 >60 U/mL (31-60)
[2024-10-20 02:53] LABS: Protein, Total 7.1 g/dL (6.1-8.1)
[2024-10-20 15:34] LABS: Kappa\\Lambda Light Chains 1.75 (0.26-1.65); Lambda Light Chain 12.4 mg/L (5.7-26.3)
[2024-10-20 20:08] LABS: Albumin 4.2 g/dL (3.8-4.8); Alpha 1 Globulin 0.3 g/dL (0.2-0.3); Alpha 2 Globulin 0.9 g/dL (0.5-0.9); Beta 1 Globulin 0.5 g/dL (0.4-0.6); Gamma Globulin 0.8 g/dL (0.8-1.7)
[2024-10-21 12:19] LABS: ANCA Screen NEGATIVE (NEGATIVE)
[2024-10-21 20:53] LABS: Immunofixation, Serum Normal pattern.
[2024-10-25 19:48] LABS: Cryoglobulin, QL Negative (Negative)
== END 2024-10-18 06:38 | disposition home or self-care (01) ==
PROVIDERS: PCP Internal Medicine Gastroenterology; Visit Provider Specialist
DX: E11.65 Type 2 diabetes mellitus with hyperglycemia (principal); E21.3 Hyperparathyroidism, unspecified; E55.9 Vitamin D deficiency, unspecified; E78.41 Elevated Lipoprotein(a); E78.5 Hyperlipidemia, unspecified; E87.20 Acidosis, unspecified; N39.0 Urinary tract infection, site not specified; R35.0 Frequency of micturition; R94.6 Abnormal results of thyroid function studies; I12.9 Hypertensive chronic kidney disease with stage 1 through stage 4 chronic kidney disease, or unspecified chronic kidney disease; N18.30 Chronic kidney disease, stage 3 unspecified
CPT/HCPCS: 36415; 80053; 81001; 82043; 82306; 82595; 83883; 83970; 84155; 84165; 84443; 84550; 86036; 86038; 86039; 86160; 86162; 86225; 86334; 86592; 86703; 87086; G0432

== ENCOUNTER 2024-10-22 07:39 | Outpatient (CLI) | payer MEDICARE, SELFPAY ==
--- OUTSIDE RECORDS SUMMARY | 2024-10-22 07:45 | XMS_ITS | Data Portability ---
Author Organization [place] [facility] [employer], Main Office Address [address] [place] [address] Assessment Encounter Date Assessment Date Assessment LastModified by Organization Details LastModified Time 04/28/2023 04/28/2023 Assessment: Nicotine smoke: 1 ppd 8496-6380 = 38 pack years Left apical pulmonary nodule Mild ACO AAT PiMS 128 mg% Very severe OSAHS, AHI = 138 Plan: The following were reviewed and explained to the patient: [facility] split night sleep study 11/23/19 AHI = [...] 16% Advised to continue not to smoke. Pgqdw-3-hxtgdhrvdv n deficiency (AAT) information were discussed: What [...] 10/07/2023 10/07/2023 Assessment: Nicotine smoke: 1 ppd 9878-8254 = 38 pack years Left apical pulmonary nodule Mild ACO AAT PiMS 128 mg% Very severe OSAHS, AHI = 138 Plan: The following were reviewed and explained to the patient: [facility] split night sleep study 11/23/19 AHI = [...] Bry Castillo and Dr. Nikolai Peters at [facility], scheduled for 10/20/23. (Fax number is [phone]). The patient will bring PAP unit and inhalers for perioperative use. Aggressive pulmonary toilet is recommended to clear airways of mucus and other secretions by deep breathing, incentive spirometry, postural drainage and percussion. Oxygen supplementation may be necessary to keep saturation between 89-94%. Advised to continue not to smoke. Uozxr-0-akyopsnyzi n deficiency (AAT) information were discussed: What [...] carrier. Patient will setup an appointment with [facility] for supplies and pressure adjustments. A major [...] 03/15/2024 03/15/2024 Assessment: Nicotine smoke: 1 ppd 1809-4862 = 38 pack years Left apical pulmonary nodule Mild ACO AAT PiMS 128 mg% Very severe OSAHS, AHI = 138 Plan: The following were reviewed and explained to the patient: [facility] split night sleep study 11/23/19 AHI = [...] -4% Advised to continue not to smoke. Zbqwh-3-ecrfgqvjkp n deficiency (AAT) information were discussed: What [...] carrier. Patient will setup an appointment with [facility] for supplies and pressure adjustments. A major [...] inhalatio n capsules 2022 023 [facility] [id number] In [facility], [address] [place] [address], [address], 04/28/2023 11:13:25 albuterol sulfate HFA 90 mcg/actua tion aerosol inhaler 2022 023 [facility] [address] In [facility], [address] [place] [address], [address], 04/28/2023 11:13:27 Symbicort 160 mcg-4.5 mcg/actua tion HFA aerosol inhaler 2022 023 [facility] [address]365 In [facility], [address] [place] [address], [address], 04/28/2023 11:13:25 Spiriva with [employer] 18 mcg and inhalatio n capsules 2023 024 [facility] [address], [address], 10/07/2023 15:22:43 albuterol sulfate HFA 90 mcg/actua tion aerosol inhaler 2023 024 [facility] [address], [address], 10/07/2023 15:22:41 Symbicort 160 mcg-4.5 mcg/actua tion HFA aerosol inhaler 2023 024 [facility] [address] In [facility], [address] [place] [address], [address], 10/07/2023 15:22:42 Spiriva with [employer] 18 mcg and inhalatio n capsules 2023 024 [facility] [address] In [facility], [address] [place] [address], [address], 03/15/2024 13:17:54 albuterol sulfate HFA 90 mcg/actua tion aerosol inhaler 2023 024 [facility] [address] In [facility], [address] [place] [address], [address], 03/15/2024 13:17:55 Symbicort 160 mcg-4.5 mcg/actua tion HFA aerosol inhaler 2023 024 [facility] [address], [address], 03/15/2024 13:17:56 Patient TargetsNo targets recorded. Patient Instructions Encounter Date Encounter Id Patient Instructions Last Modified By Organization Details Last Modified Time 04/28/2023 [id number] complete PFT w/ post bronchodilator spirometry* [email or web address] Not available 05/10/2024 12:44:21 10/07/2023 [id number] complete PFT w/ post bronchodilator spirometry* [email or web address] Not available 03/14/2024 08:31:10 03/15/2024 [id number] complete PFT w/ post bronchodilator spirometry* Not available 03/15/2024 13:17:51 Reason for Referral None Reported. Results Created Date Observation Date Name Description Value Unit Range Abnormal Flag Note LastModifiedBy Organization Detail LastModifiedTime 03/25/20 22 11/23/2019 polys omnog lex, split night No observ ation record ed. [id number] Not Available 11/19/2022 06:10:07 03/27/20 22 09/30/2019 pulmo nary funct ion test* No observ ation record ed. [id number] [facility] (One Call Scheduling) [address] [place], [address], 11/19/2022 06:10:07 04/08/20 22 04/08/2022 CT, chest , w/o contr ast No observ ation record ed. [id number] [facility] Add On Lab Orders [address] [place], [address], 11/19/2022 06:10:07 04/09/20 22 04/08/2022 compl ete PFT w/ post [facility] hodil ator christopher metry * No observ ation record ed. [id number] Not Available 11/19/2022 06:10:07 04/28/20 22 2021 LDCT, chest , for lung cance r scree kesha No observ ation record ed. [id number] Not Available 11/19/2022 06:10:07 04/28/20 22 11/14/2019 LDCT, chest , for lung cance r scree kesha No observ ation record ed. [id number] Not Available 11/19/2022 06:10:07 02/27/20 23 02/25/2023 compl ete PFT w/ post [facility] hodil ator christopher metry * No observ ation record ed. BARCODE [facility] (One Call Scheduling) [address] [place], [address], 02/26/2023 10:15:24 07/07/20 23 07/06/2023 trans esoph ageal echoc ardio graph y, real- time with image docum entat ion (2D); inclu ding probe place ment, image acqui sitio n, inter preta tion and repor t (PROC ) No observ ation record ed. [address] [facility] [address], [place], [address], 08/11/2023 10:26:30 10/07/19 24 10/06/2023 XR, chest , 2 view No observ ation record ed. BARCODE Not Available 2023 16:20:55 10/07/19 24 10/06/2023 XR, chest , 2 view No observ ation record ed. BARCODE Not Available 2023 18:03:48 11/04/19 24 11/04/2023 stres s echoc ardio gram No observ ation record ed. [email or web address] [facility] [address], [place], [address], 11/06/2023 12:05:20 03/16/20 24 03/15/2024 compl ete PFT w/ post [facility] hodil ator christopher metry * No observ ation record ed. BARCODE [facility] (One Call Scheduling) [address] [place], [address], 03/16/2024 11:41:00 Result Notes None recorded. 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 0535461208112 9107 Active 2021 Not Available [facility] 3 16:13:26 Microscopi c hematuria 293590798 Active Not Available [facility] 3 16:13:26 Body mass index 40+ - severely obese 568632898 Active 2019 Not Available [facility] 3 16:13:26 Degenerati on of interverte bral disc 03180616 Active 2019 Not Available [facility] 3 16:13:26 Obstructiv e sleep apnea syndrome 53634129 Active 2019 Not Available [facility] 3 16:13:27 Solitary nodule of lung 150703649 Active 2023 Vinnie Martinez MD [address] [facility], [facility] [address], [place], [address] , [facility] 4 14:49:12 Notes:Medical History: Depre ssion Postnasal [...] 2018 AV replacement 2023 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 Procedures Surgical History None recorded. Imaging Results Imaging Date Name Status LastModified by Organization Details LastModified Time 11/23/2019 polysomnogram, split night completed [id number] Information not available 11/19/2022 06:10:07 2021 LDCT, chest, for lung cancer screening completed [id number] Information not available 11/19/2022 06:10:07 11/14/2019 LDCT, chest, for lung cancer screening completed [id number] Information not available 11/19/2022 06:10:07 04/08/2022 CT, chest, w/o contrast completed [id number] [facility] Add On Lab Orders [address] [place], [address], 11/19/2022 06:10:07 04/08/2022 complete PFT w/ post bronchodilator spirometry* completed [id number] Information not available 11/19/2022 06:10:07 09/30/2019 pulmonary function test* completed [id number] [facility] (One Call Scheduling) [address] [place], [address], 11/19/2022 06:10:07 02/25/2023 complete PFT w/ post bronchodilator spirometry* completed BARCODE [facility] (One Call Scheduling) [address] [place], [address], 02/26/2023 10:15:24 07/06/2023 transesophageal echocardiography, real-time with image documentation (2D); including probe placement, image acquisition, interpretation and report (PROC) completed [email or web address] [facility] [address], [place], [address], 08/11/2023 10:26:30 10/06/2023 XR, chest, 2 view completed BARCODE Informa tion not available 10/07/2023 16:20:55 10/06/2023 XR, chest, 2 view completed BARCODE Informa tion not available 10/07/2023 18:03:48 11/04/2023 stress echocardiogram completed [email or web address] [facility] [address], [place], [address], 11/06/2023 12:05:20 03/15/2024 complete PFT w/ post bronchodilator spirometry* completed [facility] (One Call Scheduling) [address] [place], [address], 03/16/2024 11:41:00 Procedure Notes None recorded. Medical [...] Vitals Date Recorded Body mass index (BMI) Body mass index (BMI) Systolic blood pressure Diastolic blood pressure Provider Name and Address Organization Details Last Updated DateTime 11/19/2022 61.6 kg/m2 60.6 kg/m2 140 mm[Hg] 90 mm[Hg] Not Available [facility] 11/19/2022 06:00:04 Date Recorded Heart rate Body height Body height Oxygen saturation Oxygen saturation in Arterial blood by Pulse oximetry Oxygen saturation Oxygen saturation in Arterial blood by Pulse oximetry Systolic blood pressure Diastolic blood pressure Provider Name and Address Organization Details Last Updated DateTime 3 93 /min 154.94 cm 154.94 cm 97 % 97 % 97 % 97 % 130 mm[Hg] 74 mm[Hg] Not Available [facility] 3 06:00:05 Date Recorded Heart rate Heart rate Respiratory rate Body temperature Body temperature Body weight Body weight Provider Name and Address Organization Details Last Updated DateTime 3 93 /min 86 /min 15 /min 98.3 [degF] 96.3 [degF] 460562. 11 g 265514. 43 g Not Available [facility] 3 06:00:06 Date Recorded Body height Provider Name an d Address Organization Details Last Updated DateTime 04/28/2023 154.94 cm LEANNA Mccann [employer] 04/28/2023 10:49:50 Date Recorded Body mass index (BMI) Body weight Provider Name and Address Organization Details Last Updated DateTime 04/28/2023 59 kg/m2 738216.82 g Hanh Bowser MA [employer] 04/28/2023 10:50:28 Date Recorded Body temperature Provider Name a nd Address Organization Details Last Updated DateTime 04/28/2023 98.4 [degF] LEANNA Mccann [employer] 04/28/2023 10:57:44 Date Recorded Heart rate Provider Name an d Address Organization Details Last Updated DateTime 04/28/2023 93 /min LEANNA Mccann [employer] [facility] 04/28/2023 10:58:01 Date Recorded Oxygen saturation Oxygen saturation in Arterial blood by Pulse oximetry Provider Name and Address Organization Details Last Updated DateTime 04/28/2023 96 % 96 % Hanh Bowser MA [facility] [employer] [facility] 04/28/2023 10:58:05 Date Recorded Heart rate Provider Name an d Address Organization Details Last Updated DateTime 04/28/2023 93 /min Vinnie Martinez MD [address] [facility], [address] [address], [place], [address], [facility] [employer] [facility] 04/28/2023 11:19:33 Date Recorded Respiratory rate Provider Name a nd Address Organization Details Last Updated DateTime 04/28/2023 15 /min Vinnie Martinez MD [address] [facility], [address] [address], [place], [address], [facility] [employer] [facility] 04/28/2023 11:19:34 Date Recorded Body height Provider Name an d Address Organization Details Last Updated DateTime 10/07/2023 154.94 cm [facility]ccann [facility] Hartman Wright [facility] 10/07/2023 14:57:55 Date Recorded Body mass index (BMI) Body weight Provider Name and Address Organization Details Last Updated DateTime 10/07/2023 59.3 kg/m2 366623 g LEANNA [facility]ccann [facility] [employer] [facility] 10/07/2023 15:00:25 Date Recorded Body temperature Provider Name a nd Address Organization Details Last Updated DateTime 10/07/2023 97.7 [degF] LEANNA Mccann Rosa [facility] Hartman Wright [facility] 10/07/2023 15:05:13 Date Recorded Heart rate Provider Name an d Address Organization Details Last Updated DateTime 10/07/2023 86 /min LEANNA Mccann Rosa [facility] [employer] [facility] 10/07/2023 15:06:15 Date Recorded Oxygen saturation Oxygen saturation in Arterial blood by Pulse oximetry Provider Name and Address Organization Details Last Updated DateTime 10/07/2023 97 % 97 % Hanh Bowser MA [facility] [employer] [facility] 10/07/2023 15:06:19 Date Recorded Heart rate Provider Name an d Address Organization Details Last Updated DateTime 10/07/2023 86 /min Vinnie Martinez MD [address], [place], [address], [employer] 10/07/2023 15:25:39 Date Recorded Respiratory rate Provider Name a nd Address Organization Details Last Updated DateTime 10/07/2023 15 /min Vinnie Martinez MD [address], [place], [address], [employer] 10/07/2023 15:25:40 Date Recorded Body height Provider Name an d Address Organization Details Last Updated DateTime 03/15/2024 154.94 cm [employer] 03/15/2024 12:39:55 Date Recorded Body mass index (BMI) Provider Name and Address Organization Details Last Updated DateTime 03/15/2024 59 kg/m2 [employer] 03/15/2024 12:40:03 Date Recorded Body weight Provider Name an d Address Organization Details Last Updated DateTime 03/15/2024 012103.82 g [employer] 03/15/2024 12:40:04 Date Recorded Oxygen saturation Oxygen saturation in Arterial blood by Pulse oximetry Provider Name and Address Organization Details Last Updated DateTime 03/15/2024 96 % 96 % [employer] 03/15/2024 12:42:20 Date Recorded Heart rate Provider Name an d Address Organization Details Last Updated DateTime 03/15/2024 90 /min Costa Lemus [employer] 03/15/2024 12:42:25 Date Recorded Body temperature Provider Name a nd Address Organization Details Last Updated DateTime 03/15/2024 97.3 [degF] Vinnie Martinez MD [address], [place], [address], [employer] 03/15/2024 13:30:11 Date Recorded Heart rate Provider Name an d Address Organization Details Last Updated DateTime 03/15/2024 90 /min Vinnie Martinez MD [address], [place], [address], [employer] 03/15/2024 13:30:09 Date Recorded Respiratory rate Provider Name a nd Address Organization Details Last Updated DateTime 03/15/2024 15 /min Vinnie Martinez MD [address], [facility] [address], [place], [address], [employer] [facility] [employer] 03/15/2024 13:30:13 Date Recorded Systolic blood pressure Diastolic blood pressure Provider Name and Address Organization Details Last Updated DateTime 04/28/2023 126 mm[Hg] 72 mm[Hg] Hanh Bowser MA [employer] [facility] [employer] 04/28/2023 11:00:29 Date Recorded Systolic blood pressure Diastolic blood pressure Provider Name and Address Organization Details Last Updated DateTime 10/07/2023 124 mm[Hg] 68 mm[Hg] Hanh Bowser MA [employer] [facility] [employer] 10/07/2023 15:07:44 Date Recorded Systolic blood pressure Diastolic blood pressure Provider Name and Address Organization Details Last Updated DateTime 03/15/2024 122 mm[Hg] 70 mm[Hg] Costa Lemus CMA [employer] [facility] [employer] 03/15/2024 12:42:12 Social History Question Answer Notes LastModified by Organizat ion Details LastModified Time Tobacco Smoking Status Former Smoker quit in 2016 Not Available [employer] 11/19/2022 05:54:49 In The 14 Days Before Symptom Onset, Have You Had Close Contact With A Laboratory-confir med COVID-19 While That Case Was Ill? No [id number] Information not available 11/19/2022 In The 14 Days Before Symptom Onset, Have You Had Close Contact With A Person Who Is Under Investigation For COVID-19 While That Person Was Ill? No [id number] Information not available 11/19/2022 What Type Of [...] 04/28/2023 Have You Recently Traveled Abroad? No [id number] Information not available 11/19/2022 Do You Have [...] Time Sister Family history of malignant neoplasm [id number] Not available 11/19/2022 05:57:05 Sister Chronic obstructive pulmonary disease [id number] Not available 11/19/2022 05:57:05 Father Myocardial infarction [id number] Not available 11/19/2022 05:57:06 Son Asthma [id number] Not available 11/19/2022 05:57:06 Medical History No medical history recorded. Gynecological HistoryNo gynecological history recorded. Obstetrics History GPAL:G 0 P 0 0 0 0 Immunizations Vaccine Type Date Status Note Provider Nam e and Address Organization Details Recorded Time COVID-19, mRNA, LNP-S, PF, 30 mcg/0.3 mL dose 2 completed Not Available [facility] 03/30/2023 16:13:27 COVID-19, mRNA, LNP-S, PF, 30 mcg/0.3 mL dose 1 completed Not Available [facility] 03/30/2023 16:13:27 COVID-19, mRNA, LNP-S, PF, 30 mcg/0.3 mL dose 1 completed Not Available [facility] 03/30/2023 16:13:27 Influenza, split virus, quadrivalent, preservative 0 completed Not Available [facility] 03/30/2023 16:13:27 Past Encounters Encounter ID Performer Location Encounter Start Date Encounter Closed Date Diagnosis/Indication Diagnosis SNOMED-CT Code Diagnosis ICD10 Code Diagnosis Note [id number] [facility] [place] [address] 03/26/2022 00:00:00 03/26/2022 11:24:25 [id number] [facility] [place] [address] 0 04/28/2022 00:00:00 04/28/2022 15:42:25 [id number] Vinnie Martinez MD [facility] [address] [address] 04/28/2023 10:19:01 04/28/2023 15:20:45 Solitary nodule of lung 686032545 R91.1 Asthma-chr onic obstructive pulmonary disease overlap syndrome 9081920167 0886034 J44.9 Obstructiv e sleep apnea syndrome 25097643 G47.33 [id number] Vinnie Martinez MD [facility] [address] [address] 10/07/2023 14:43:48 10/08/2023 08:14:36 Asthma-chronic obstructive pulmonary disease overlap syndrome 7602450611 2574434 J44.9 Solitary n odule of lung 133009772 R91.1 Obstructiv e sleep apnea syndrome 46909296 G47.33 [id number] Vinnie Martinez MD [facility] [address] [address] 03/15/2024 11:44:04 03/16/2024 08:17:58 Asthma-chronic obstructive pulmonary disease overlap syndrome 6693528438 2440797 J44.9 Solitary n odule of lung 261313164 R91.1 Obstructiv e sleep apnea syndrome 72244808 G47.33 Health Concerns Section Related Observation LastModified by Organization Detai ls LastModified Time None Recorded Concern Status LastModified by Organization Details LastModified Time None Recorded Advance Directives Directive None Recorded Payers Encounter Date Sequence Insurance Name Policy Number Policy Hill Covered Member ID Hill Member ID Guarantor Name 04/28/2023 1 [employer] (MEDICARE REPLACEMENT/A DVANTAGE - PPO) [id number] Laurel Vargas Lucio [id number] Laurel Vargas Lucio 10/07/2023 1 [facility] (MEDICARE REPLACEMENT/A DVANTAGE - PPO) [id number] Laurel Vargas Lucio [id number] Laurel Valdes 03/15/2024 1 [employer] (MEDICARE REPLACEMENT/A DVANTAGE - PPO) [id number] Laurel Vargas Lucio [id number] Laurel Vargas Lucio Notes Date Note Type Note Provider Name [...] up stairs, heatAlleviating factors: restModified [employer]) Dyspnea Scale - Grade 2Grade 0 [...] noDysphagia: noEdema: yesEnvironmental exposures:Nicotine smoke: 1 ppd 5846-1294 = 38 pack yearsPaint: noDye: noDust mites: [...] chance of dozing. Vinnie Martinez MD [address] [place] [address], [address], [facility] [employer] 04/28/2023 11:19:45 10/07/2023 text/html Primary care/Ref erring provider: Feliciano Griffin MD; Yemi Pandya PA-C CC: Patient is here for surgical clearance. She has severe . Her aortic valve replacement is scheduled for 10/20/23. Fax number is [phone].Patient is here to go over her ACO management.Initial development of shortness of breath: 2014Duration of shortness of breath: 9 yearsCondition of shortness of breath: stableTiming of shortness of breath: noneFrequency: up to 8 times a dayLimits activities: yesAggravating factors: walking, going up stairs, heatAlleviating factors: restModified [employer] ([employer]) Dyspnea Scale - Grade 2Grade 0 [...] noDysphagia: noEdema: yesEnvironmental exposures:Nicotine smoke: 1 ppd 8982-6908 = 38 pack yearsPaint: noDye: noDust mites: [...] slight chance of dozing. Vinnie Martinez MD [address] [place] [address], [address] [address], [place], [address], [facility] [employer] 10/07/2023 15:31:10 03/15/2024 text/html Primary care/Ref erring provider: Feliciano Griffin MD; FRANCIS Jiménez-CPatient is here to go over her ACO management.Initial development of shortness of breath: 2014Duration of shortness of breath: 10 yearsCondition of shortness of breath: stableTiming of shortness of breath: noneFrequency: up to 8 times a dayLimits activities: yesAggravating factors: walking, going up stairs, heatAlleviating factors: restModified [employer] ([employer]) Dyspnea Scale - Grade 2Grade 0 [...] noDysphagia: noEdema: yesEnvironmental exposures:Nicotine smoke: 1 ppd 6997-2215 = 38 pack yearsPaint: noDye: noDust mites: [...] slight chance of dozing. Vinnie Martinez MD [address] [facility], [address] [address], [place], [address], [place] [facility] [employer] 03/15/2024 13:30:42 OBGyn Episode No OBEpisode recorded.
--- OUTSIDE RECORDS SUMMARY | 2024-10-22 07:45 | XMS_ITS | CONTINUITY OF CARE DOCUMENT ---
Author Name yo ram Address Unknown Organization [facility] Address [address] [facility] [address] [place] [address] Phone [phone] Care Team Providers Care Associate Manager Name Role Phone Anna NETTLES, Bry Webb Unavailable [phone] BARTOLO NG MD Unavailable [phone] BARTOLO NG MD Unavailable PROBLEMS Condition Status [...] In-person encounter Office Visit Bry Castillo MD [facility] - In-person encounter Office Visit Bry Castillo MD [facility] - In-person encounter Office Visit Bry Castillo MD [facility] Edema - generalized - In-person encounter Office Visit Bry Castillo MD [facility] HypertensionSleep apnea - In-person encounter Office Visit Feliciano Griffin MD [facility] Aortic stenosis, severe by echo KD 3 - In-person encounter Office Visit Feliciano Griffin MD [facility] Chest pain--no sig CAD on cath ortic stenosis, severe by echo 06/2023 - In-person encounter Office Visit Feliciano Griffin MD [facility] - In-person encounter Office Visit Feliciano Griffin MD [facility] HTN essential--echo ef nl, severe , ortic stenosis, severe by echo 06/2023 - In-person encounter Office Visit Feliciano Griffin MD [facility] - In-person encounter Office Visit Feliciano Griffin MD [facility] JULIO on CPAPProteinuria, f/w Dr. Loyola - In-person encounter Office Visit Feliciano Griffin MD [facility] Chest pain--no sig CAD on cath 10/2022FAMILY HISTORY OF HEART DISEASEAortic stenosis, severe by echo 06/2023Venous insufficiency - In-person encounter Office Visit Feliciano Griffin MD [facility] HTN essential--echo ef nl, severe , [...] ruenenfelder pulse rate 90 /min Lisbeth Jordane [facility] weight E&M 308 [lb_av] Lisbeth Kapilnenfe [facility] height E&M 62 [in_i] Lisbeth Kapilnenfe [facility] Body Mass Index (Ratio) 58.34 kg/m2 Fadi luna Faith blood pressure, diastolic 94 mm[Hg] nkLog blood pressure, systolic 122 mm[Hg] [facility] blood pressure, cuff size regular [facility] blood pressure, diastolic 94 mm[Hg] [facility] blood pressure, systolic 122 mm[Hg] [facility] E&M 18 /min Solange victor pulse rate 87 /min [facility] oxygen saturation, oximetry 97 % [facility] weight E&M 319 [lb_av] [facility] height E&M 62 [in_i] [facility] Body Mass Index (Ratio) 58.89 kg/m2 Jonathan Castillo MD blood pressure, diastolic 82 mm[Hg] Li nkLog blood pressure, systolic 185 mm[Hg] Tiffanie og blood pressure, cuff size regular [facility] blood pressure, diastolic 82 mm[Hg] [facility] blood pressure, systolic 185 mm[Hg] Michael ayala [place] pulse rate 102 /min Solange [place] respiratory rate E&M 18 /min Solange Nicholson jackelinr oxygen saturation, oximetry 95 % Solange [place] weight E&M 322 [lb_av] Solange [place] height E&M 62 [in_i] Solange [place] Body Mass Index (Ratio) 57.61 kg/m2 Jonathan Castillo MD blood pressure, cuff size large [facility] blood pressure, diastolic 100 mm[Hg] Ke rri Grantuechance blood pressure, systolic 140 mm[Hg] Gamaliel Cobian oxygen saturation, oximetry 96 % Lisbeth Cobian respiratory rate E&M 12 /min Lisbeth daniel pulse rate 111 /min Lisbeth Aurora [facility] weight E&M 315 [lb_av] Lisbeth Aurora [facility] height E&M 62 [in_i] Lisbeth Aurora er [...] MD blood pressure, diastolic 85 mm[Hg] [facility] blood pressure, systolic 147 mm[Hg] Ton [facility] oxygen saturation, oximetry 97 % [facility] respiratory rate E&M 18 /min [facility] pulse rate 97 /min [facility] weight E&M 342 [lb_av] [facility] height E&M 62 [in_i] [facility] Body Mass Index (Ratio) 64.92 kg/m2 [...] Griffin MD respiratory rate E&M 18 /min [facility] blood pressure, diastolic 80 mm[Hg] [facility] blood pressure, systolic 140 mm[Hg] [facility] pulse rate 107 /min [facility] blood pressure, resting Yes [facility] height E&M 62 [in_i] [facility] weight E&M 250 [lb_av] [facility] oxygen saturation, oximetry 97 % [facility] ALLERGIES No Known Drug Allergies RESULTS Date Observation Value Provider Reference Range Interpretation Location Estimated Glomerular Filtration Rate (calc) 61 mL/min/{ 1.73_m2} [facility] [place] [address] NT-pro BNP 56 LinkLogic <=300 Normal [place] [address] aspartate aminotransferase (SGOT), serum 15 1/L [facility] 10-45 Normal [place] [address] alanine aminotransferase (SGPT), serum 19 1/L [facility] 7-45 Normal [place] [address] Alkaline phosphatase 123 [facility] 40-130 Normal C, [place] [address] albumin, serum 4.6 g/dL [facility] 3.5-5.0 Normal [place] [address] protein, total, serum 7.9 g/dL [facility] 6.5-8.5 Normal [place] [address] bilirubin, serum, total 0.3 mg/dL [facility] 0.1-1.2 Normal [place] [address] calcium, serum 10.1 mg/dL [facility] 8.5-10.3 Normal C, [place] [address] blood glucose, random 71 mg/dL [facility] 70-199 Normal C, [place] [address] creatine, serum 1.05 mg/dL [facility] 0.60-1.10 Normal C, [place] [address] urea nitrogen, blood 18 mg/dL [facility] 6-25 Normal C, C [place] [address] anion gap, serum 11 mmol/L [facility] 2-15 Normal C, [place] [address] carbon dioxide, venous blood 27 mmol/L [facility] 22-32 Normal C, [place] [address] chloride, serum 103 mmol/L [facility] 97-110 Normal C, [place] [address] potassium, serum 4.4 MMOL/L [facility] 3.3-4.9 Normal , [place] [address] sodium, serum 141 mmol/L [facility] 135-145 Normal C, [place] [address] activated partial thromboplastin time (aPTT) 34 s [facility] 28-38 Normal C, [place] [address] international normalized ratio (INR) 0.96 [facility] 0.90-1.20 Normal , [place] [address] prothrombin time (patient) 11.0 s [facility] 10.3-13.7 Normal , [place] [address] Absolute Basophils 0.1 K/CUMM [facility] 0.0-0.1 Normal C, [place] [address] Absolute Monocytes 0.5 K/CUMM [facility] 0.2-0.8 Normal , [place] [address] Absolute Lymphocytes 1.3 K/CUMM [facility] 0.8-3.3 Normal , [place] [address] Absolute Neutrophils 4.1 K/CUMM [facility] 1.5-6.5 Normal C, [place] [address] nucleated red blood cells as percent of [...] Hetal lua NP smoking, date started 1972 [facility] smoking history, tot al pack/year 365 [facility] smoking history, tot al pack/day 1 [facility] cigarette use yes [facility] smoking status Former smoker [facility] smoking, date started 1972 [facility] smoking history, tot al pack/year 365 [facility] smoking history, tot al pack/day 1 [facility] cigarette use yes [facility] smoking status Former smoker [facility] social history reviewed E&M revi ewed [...] Payer name Policy type / Coverage type [place] red libertarian ID AARP MEDICARE ADVANTAGE ([facility] COMPLETE PPO) Other [id number] ADVANCE DIRECTIVES Name Date DISCUSSED - NO DECISION MADE TREATMENT PLAN Date Name Performer [id number],C, H er updated medication list for this problem includes: Levothyroxine Sodium 137 Mcg Oral Tablet (Levothyroxine sodium) Bry Castillo MD [id number],S, Bry Castillo MD [id number],C,S ees pulmonary A lpha-[address] s e[address]. Martinez @ [facility] for pulmonary Bry Castillo MD [id number],S, H er updated medication list for this problem includes: Pravastatin Sodium 10 Mg Oral Tablet (Pravastatin sodium) Bry Castillo MD [id number],S,has JULIO Maren Castillo MD [id number],S, B P today: 140/100 P rior BP: 167/81 (07/13/2023) Her updated medication list for this problem includes: Losartan Potassium 50 Mg Oral Tablet (Losartan potassium) Bry Castillo MD [id number],C, Severe aortic stenosis. No evidence of aortic insufficiency. Peak AV velocity: 4.03 m/s The Aortic Valve Peak Gradient is 6 5.07 mmHg The Aortic Valve Mean Gradient is 41.39 mmHg The DRAKE is 0.67 cm2. S he had heart carth in December of 2022 done at [facility] P AP is 34/14 and PCW is 17 gradient of 30 across the valve normal coronaries normal LVEF no MR Bry Castillo MD [id number],C,sees Dr. Melissa Castillo MD [id number],S, Dequan Paredes i [id number],S, Dequan Cuellarmedza i [id number],S, Dequan Paredes i [id number],S, Dequan Cuellarmedza i [id number],S, Dequan Ahmedza i [id number],S, Dequan Ahmedza i [id number],S, Dequan Ahmedza i [id number],S, Dequan Ahmedza i [id number],S, Dequan Ahmedza i [id number],S, Dequan Ahmedza i [id number],S, Dequan Ahmedza i [id number],S, Dequan Ahmedza i [id number],S, Dequan Ahmedza i [id number],S, Dequan Ahmedza i [id number],S, Debora Norm obsmeyer [id number],S, Debora Norm obsmeyer [id number],S, Debora Norm obsmeyer [id number],S, Debora Norm obsmeyer [id number],W, Dequan Ahmedza i [id number],W, Dequan Ahmedza i [id number],S, Dequan Ahmedza i [id number],S, Dequan Ahmedza i [id number],S, Dequan Ahmedza i [id number],S, Dequan Ahmedza i [id number],S, Dequan Ahmedza i [id number],W, Feliciano Griffin MD [id number],B, Dequan Ahmedza i [id number],S, Dequan Paredes i [id number],S, Dequan Paredes i [id number],S, Dequan Cedillocuco i [id number],S, Feliciano Griffin MD [id number],S, Feliciano Griffin MD [id number],S, Feliciano Griffin MD [id number],S, Feliciano Griffin MD [id number],S, Feliciano Griffin MD [id number],B, Feliciano Griffin MD Cardiology:This visi t has [...] antitrypsin deficiency s ees Dr. Martinez @ [facility] for pulmonary Hetal Celestinstoney BEAN [...] lpha-1 antitrypsin deficiency s eejames Martinez @ [facility] for pulmonary Bry Castillo MD [...] antitrypsin deficiency s ees Dr. Martinez @ [facility] for pulmonary Bry Castillo MD [...] carth in December of 2022 done at [facility] P AP is 34/14 and [...] Cardiology Dequan Ahmedzai Cardiology Dequan Ahmedzai Cardiology Deboar Shultz eyer Cardiology Debora Shultz eyer Cardiology [...] completed FVC / MVV with bronchodilator - 75693 Feliciano Griffin MD completed FRC - 96435 Feliciano Griffin MD complete d SpO2 w/o 6min walk/titration Feliciano Griffin MD completed EKG Feliciano Griffin MD completed
--- OUTSIDE RECORDS SUMMARY | 2024-10-22 07:45 | XMS_ITS | Clinical Summary ---
Author Organization [facility] Address [address] [place] [address] Care Team Providers Care Forging Engineer Name Role Phone Daylin Lawrence MD Primary Care Provider [phone] Bry Castillo MD Unavailable [phone] Allergies No known active allergies Medications albuterol [...] by mouth daily 30 tablet 11 10/21/2023 Active clopidogreL (PLAVIX) 75 mg tabletIndicatio ns:coronary artery disease Take 1 tablet (75 mg total) by mouth daily 90 tablet 3 10/21/2023 Active Active Problems Problem Noted Date Diagnosed [...] joint disease) Cataract Sleep apnea Motion sickness Uyvoi-4-deshfppukom deficiency (CMS/HCC) (HCC) Family History Medical History [...] on file Legal Sex Female 7:05 PM BINDERY MANAGER Gender Identity Not on file Sexual Orientation Not on file Obstetrics History Last Filed Vital Signs Vital Sign Reading Time Taken Comments Blood Pressure 129/72 10/21/2023 8:13 AM BINDERY MANAGER Pulse 88 10/21/2023 8:13 AM BINDERY MANAGER Temperature 36.8 ??C (98.2 ??F) 10/21/2023 8:13 AM CS T Respiratory Rate 18 10/21/2023 4:00 AM BINDERY MANAGER Oxygen Saturation 97% 10/21/2023 8:13 AM BINDERY MANAGER Inhaled Oxygen Concentration - - Weight 143.7 kg (316 lb 14.4 oz) 10/21/2023 5:54 AM BINDERY MANAGER Height 154.9 cm (5' 1 ) 10/20/2023 7:07 AM BINDERY MANAGER Body Mass Index 59.88 10/20/2023 7:07 AM BINDERY MANAGER Plan of Treatment Health Maintenance Due Date [...] 10/12/2024 10/12/2014 Medical Devices Implanted Type Area Algologist Device Identifier Shelf Expiration Date Model / Serial / Lot [employer] Device Clsr Perclose Prostyle Sut-Mediatd Closure-Repair Sys 42304-88 - [id number] Implanted:Qty: 1 on 10/20/2023 by Bry Castillo MD at [facility] [employer] 07/21/2025 [id number] / / [id number] [employer] Device Clsr Perclose Prostyle Sut-Mediatd Closure-Repair Sys 60430-43 - [id number] Implanted:Qty: 1 on 10/20/2023 by Bry Castillo MD at [facility] [employer] 07/21/2025 [id number] / / [id number] [employer] Valve Aortic Trnscath Neli 3 Ultra Resilia 26mm [id number] - [id number] - [id number] Implanted:Qty: 1 on 10/20/2023 by Bry Castillo MD at [facility] [employer] 02/08/2026 [id number] / [id number] / [employer]ais[employer] - Payments [employer] | Anywhere Medical Tram Angio-Seal Vip 6fr Closere Device [id number] - [id number] Implanted:Qty: 1 on 10/20/2023 by Bry Castillo MD at [facility] [email or web address]. Tram [id number] / / Insurance MEDICARE SOLUTIONS MEDICARE SOLUTIONS Care Teams Forging Engineer Relationship Specialty Start Date End Date Daylin Lawrence MD [address] [place] [address] PCP - General Internal Medicine 08/21/23 Bry Castillo MD [address] [place] [address] Consulting Physician Cardiovascular Disease 10/21/23"
--- OUTSIDE RECORDS SUMMARY | 2024-10-22 07:45 | XMS_ITS | Clinical Summary ---
Author Organization [facility] Address [address] [place] [address] Phone Care Team Providers Care Table Maker Name Role Phone Daylin Lawrence MD Primary Care Provider [phone] Medications Medication Sig Dispensed Refills Start Date End Date Status albuterol (2.5 MG/3ML) 0.083% nebulizer solution as needed 0 06/30/2016 Active baclofen (LIORESAL) 10 MG tablet 1 tab daily 0 09/01/2017 Active busPIRone (BUSPAR) 10 MG tablet 1 tab daily 0 09/01/2017 Active budesonide-formote rol (SYMBICORT) 160-4.5 MCG/ACT inhaler 2 puffs every 4-6hrs as needed 0 09/01/2017 Active ergocalciferol (VITAMIN D2) 86045 units capsule 1 cap daily 0 09/01/2017 [...] Comments Blood Pressure 158/82 11/01/2019 11:15 AM BILLET ASSEMBLER Pulse 104 11/01/2019 11:14 AM BILLET ASSEMBLER Temperature - - Respiratory Rate - - Oxygen Saturation - - Inhaled Oxygen Concentration - - Weight 158 kg (349 lb) 11/01/2019 11:14 AM BILLET ASSEMBLER Height 157.5 cm (5' 2 ) 11/01/2019 11:14 AM BILLET ASSEMBLER Body Mass Index 63.83 11/01/2019 11:14 AM BILLET ASSEMBLER Plan of Treatment Health Maintenance Due Date Last Done Comments Influenza Vaccine (#1) 2024 06/04/2016 Care Teams Table Maker Relationship Specialty Start Date End Date Daylin Lawrence MD [address] [place] [address] PCP - General 11/02/19
--- OUTSIDE RECORDS SUMMARY | 2024-10-22 07:46 | XMS_ITS | Referral Summary ---
Author Organization [facility] Address [address] [place] [address] Care Team Providers Care Chief Of Service Name Role Phone Daylin Lawrence MD Primary Care Provider [phone] Bry Castillo MD Unavailable [phone] Allergies No known active allergies Medications albuterol [...] on file Legal Sex Female 7:05 PM DESULPHURING OPERATOR Gender Identity Not on file Sexual Orientation Not on file Last Filed Vital Signs Vital Sign Reading Time Taken Comments Blood Pressure 129/72 10/21/2023 8:13 AM DESULPHURING OPERATOR Pulse 88 10/21/2023 8:13 AM DESULPHURING OPERATOR Temperature 36.8 ??C (98.2 ??F) 10/21/2023 8:13 AM CS T Respiratory Rate 18 10/21/2023 4:00 AM DESULPHURING OPERATOR Oxygen Saturation 97% 10/21/2023 8:13 AM DESULPHURING OPERATOR Inhaled Oxygen Concentration - - Weight 143.7 kg (316 lb 14.4 oz) 10/21/2023 5:54 AM DESULPHURING OPERATOR Height 154.9 cm (5' 1 ) 10/20/2023 7:07 AM DESULPHURING OPERATOR Body Mass Index 59.88 10/20/2023 7:07 AM DESULPHURING OPERATOR Plan of Treatment Not on file Medical Devices Implanted Type Area Senior Hr Manager Device Identifier Shelf Expiration Date Model / Serial / Lot [employer] Device Clsr Perclose Prostyle Sut-Mediatd Closure-Repair Sys 69081-82 - [id number] Implanted:Qty: 1 on 10/20/2023 by Bry Castillo MD at [facility] [employer] 07/21/2025 [id number] / / [id number] [employer] Device Clsr Perclose Prostyle Sut-Mediatd Closure-Repair Sys 96195-57 - [id number] Implanted:Qty: 1 on 10/20/2023 by Bry Castillo MD at [facility] Vascular 07/21/2025 [id number] / / [id number] [employer] Valve Aortic Trnscath Neli 3 Ultra Resilia 26mm [id number] - [id number] - [id number] Implanted:Qty: 1 on 10/20/2023 by Bry Castillo MD at [facility] [employer] 02/08/2026 [id number] / [id number] / [employer] Medical Tram Angio-Seal Vip 6fr Closere Device [id number] - [id number] Implanted:Qty: 1 on 10/20/2023 by Bry Castillo MD at [facility] Medical Tram [id number] / / Insurance MEDICARE SOLUTIONS MEDICARE SOLUTIONS Care Teams Chief Of Service Relationship Specialty Start Date End Date Daylin Lawrence MD [address] [place] [address] PCP - General Internal Medicine 08/21/23 Bry Castillo MD [address] [place] [address] Consulting Physician Cardiovascular Disease 10/21/23
[2024-10-22 09:21] LABS: Collection Time Urine 24 HOURS
[2024-10-22 12:48] LABS: Total Volume 24 Hour Urine 2500 ml
[2024-10-22 12:59] LABS: Creatinine Urine 53.7 mg/dL; Serum Creat 0.91
[2024-10-22 13:30] LABS: Patient Weight 310 Lbs
[2024-10-22 13:32] LABS: Creatinine Clearance Urine 77.2 ml/min (75-125)
== END 2024-10-22 07:40 | disposition home or self-care (01) ==
LOC: ANHLAB 07:43
PROVIDERS: PCP Internal Medicine Gastroenterology; Visit Provider Specialist
DX: I12.9 Hypertensive chronic kidney disease with stage 1 through stage 4 chronic kidney disease, or unspecified chronic kidney disease (principal); N18.30 Chronic kidney disease, stage 3 unspecified; E87.1 Hypo-osmolality and hyponatremia; R35.0 Frequency of micturition; R73.09 Other abnormal glucose; E21.3 Hyperparathyroidism, unspecified; R94.6 Abnormal results of thyroid function studies; E55.9 Vitamin D deficiency, unspecified
CPT/HCPCS: 82575

== ENCOUNTER 2024-11-16 09:58 | Outpatient (CLI) | payer MEDICARE, SELFPAY ==
--- NOTE | ~2024-11-16 | US_ITS ---
EXAMINATION: US retroperitoneal comp DATE: 11/16/2024 10:54 INDICATION: Stage IV chronic kidney disease TECHNIQUE: Multiple ultrasound grayscale images of the kidneys were obtained. COMPARISON: None. FINDINGS: The right kidney measures 9.6 x 5.1 x 3.9 cm. The left kidney measures 10.6 x 5.8 x 4.0 cm. The kidne ys demonstrate normal echogenicity. There is no hydronephrosis in either kidney. There are echogenic and shadowing margins to the calyces in the right kidney suggesting that they are filled with renal s tones or staghorn calculi. No stones identified. The bladder is normal with bilateral ureteral jets v isualized on color Doppler. IMPRESSION: 1. Calyces of the left kidney demonstrate echogenic peripheral margins with posterior shadowing sugg esting air-filled with renal stones or larger staghorn calculi. Consider correlation with KUB or jorje l stone CT. 2. Otherwise normal kidneys with no hydronephrosis. Reviewed, dictated and finalized at location B. [facility] [employer] ENGINEER IMPRESSION: 1. Calyces of the left kidney demonstrate echogenic peripheral margins with po sterior shadowing suggesting air-filled with renal stones or larger staghorn ca lculi. Consider correlation with KUB or renal stone CT. 2. Otherwise normal kidneys with no hydronephrosis.
--- OUTSIDE RECORDS SUMMARY | 2024-11-16 11:30 | XMS_ITS | Clinical Summary ---
Author Organization [facility] Address [address] [place] [address] Phone Care Team Providers Care Wardrobe Manager Name Role Phone Daylin Lawrence MD Primary Care Provider [phone] Medications Medication Sig Dispensed Refills Start Date End Date Status albuterol (2.5 MG/3ML) 0.083% nebulizer solution as needed 0 06/30/2016 Active baclofen (LIORESAL) 10 MG tablet 1 tab daily 0 09/01/2017 Active busPIRone (BUSPAR) 10 MG tablet 1 tab daily 0 09/01/2017 Active budesonide-formote rol (SYMBICORT) 160-4.5 MCG/ACT inhaler 2 puffs every 4-6hrs as needed 0 09/01/2017 Active ergocalciferol (VITAMIN D2) 59089 units capsule 1 cap daily 0 09/01/2017 [...] Comments Blood Pressure 158/82 11/01/2019 11:15 AM IMAGING SPECIALIST Pulse 104 11/01/2019 11:14 AM IMAGING SPECIALIST Temperature - - Respiratory Rate - - Oxygen Saturation - - Inhaled Oxygen Concentration - - Weight 158 kg (349 lb) 11/01/2019 11:14 AM IMAGING SPECIALIST Height 157.5 cm (5' 2 ) 11/01/2019 11:14 AM IMAGING SPECIALIST Body Mass Index 63.83 11/01/2019 11:14 AM IMAGING SPECIALIST Plan of Treatment Health Maintenance Due Date Last Done Comments Influenza Vaccine (#1) 2024 06/04/2016 Care Teams Wardrobe Manager Relationship Specialty Start Date End Date Daylin Lawrence MD [address] [place] [address] PCP - General 11/02/19
--- OUTSIDE RECORDS SUMMARY | 2024-11-16 11:30 | XMS_ITS ---
Author Organization [facility] Address [address] [facility] [address] [facility] [address] [place] [address] Care Team Providers Care Electronics Instructor Name Role Phone Everette Griffin Unavailable [phone] Encounters Encounter Location Date Provider Diagnosis [facility] [address] [facility] [address] [place] [address] 10/26/2024 Everette Griffin Chronic kidney disease, stage 3 unspecified N18.30 ; Type 2 diabetes mellitus with diabetic chronic kidney disease E11.22 ; Essential hypertension I10 ; Hypothyroidism, unspecified E03.9 ; 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 ; Obesity, unspecified E66.9 ; Edema, unspecified R60.9 and Chronic obstructive pulmonary disease, unspecified J44.9 ASSESSMENTS Encounter Date Diagnosis Assessment Notes Treatment Notes Treatment Clinical Notes Section Notes 10/26/2024 Chronic kidney disease, stage 3 unspecified (ICD-10 - N18.30) 10/26/2024 Type 2 diabetes mellitus with diabetic chronic kidney disease (ICD-10 - E11.22) 10/26/2024 Essential hypertension (ICD-10 - I10) 10/26/2024 Hypothyroidism, unspecified (ICD-10 - E03.9) 10/26/2024 Other nonrheumatic aortic valve disorders (ICD-10 - I35.8) 10/26/2024 Obesity, unspecified (ICD-10 - E66.9) 10/26/2024 Edema, unspecified (ICD-10 - R60.9) 10/26/2024 Chronic obstructive pulmonary disease, unspecified (ICD-10 - J44.9) PLAN OF TREATMENT Next Appt Details Provider Name:Everette Elias , 02/22/2025 02:30:00 PM, [address] [facility], [address], [place], [address], Progress Notes * DOMINIC MARQUEZOB:[birth year] (59 yo F)Acc No.[id number]:10/26/2024 Progress Notes Patient: CONRADO MARQUEZ Provider: MD BAR, Kitty.Karri.P, F.A.S.N. :1965 Age:59 Y Sex:Female Date:10/26/2024 Address:[address] [place] [address] Subjective: * Chief Complaints: * * Medical History: Objective: Assessment: * Assessment: 1. Chronic kidney disease, stage 3 unspecified - N18.30 (Primary) 2. 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 Essential hypertension - I10 4. Hypothyroidism, unspecified - E03.9 5. Other nonrheumatic aortic valve disorders - I35.8 6. Obesity, unspecified - E66.9 7. Edema, unspecified - R60.9 8. Chronic obstructive pulmonary disease, unspecified - J44.9 Plan: * Treatment: * Billing Information: * Visit Code: 35101 Office Visit, Est Pt., Level 4. * Procedure Codes: * ISITION COST ESTIMATOR Sign off status: Pending * Provider: MD BAR, Ritika.P, F.A.S.N. Date: 10/26/2024
--- OUTSIDE RECORDS SUMMARY | 2024-11-16 11:30 | XMS_ITS | Data Portability ---
Author Organization [place] [facility], Main Office Address [address] [place] [address] Assessment Encounter Date Assessment Date Assessment LastModified by Organization Details LastModified Time 04/28/2023 04/28/2023 Assessment: Nicotine smoke: 1 ppd 6355-7774 = 38 pack years Left apical pulmonary nodule Mild ACO AAT PiMS 128 mg% Very severe OSAHS, AHI = 138 Plan: The following were reviewed and explained to the patient: [facility] split night sleep study 11/23/19 AHI = [...] 16% Advised to continue not to smoke. Ahzer-6-katrmwxswz n deficiency (AAT) information were discussed: What [...] 10/07/2023 10/07/2023 Assessment: Nicotine smoke: 1 ppd 0885-3850 = 38 pack years Left apical pulmonary nodule Mild ACO AAT PiMS 128 mg% Very severe OSAHS, AHI = 138 Plan: The following were reviewed and explained to the patient: [facility] split night sleep study 11/23/19 AHI = [...] Bry Castillo and Dr. Nikolai Peters at [facility], scheduled for 10/20/23. (Fax number is [phone]). The patient will bring PAP unit and inhalers for perioperative use. Aggressive pulmonary toilet is recommended to clear airways of mucus and other secretions by deep breathing, incentive spirometry, postural drainage and percussion. Oxygen supplementation may be necessary to keep saturation between 89-94%. Advised to continue not to smoke. Inule-0-lehlfdbtze n deficiency (AAT) information were discussed: What [...] carrier. Patient will setup an appointment with [facility] for supplies and pressure adjustments. A [...] 03/15/2024 03/15/2024 Assessment: Nicotine smoke: 1 ppd 2670-5721 = 38 pack years Left apical pulmonary nodule Mild ACO AAT PiMS 128 mg% Very severe OSAHS, AHI = 138 Plan: The following were reviewed and explained to the patient: [facility] split night sleep study 11/23/19 AHI = [...] -4% Advised to continue not to smoke. Duahc-5-oiiffasjuy n deficiency (AAT) information were discussed: What [...] carrier. Patient will setup an appointment with [facility] for supplies and pressure adjustments. A [...] inhalatio n capsules 2023 024 [facility] [id number] In [facility], [address] [place] [address], [address], 03/15/2024 13:17:54 albuterol sulfate HFA 90 mcg/actua tion aerosol inhaler 2023 024 [facility] [address] In [facility], [address] [place] [address], [address], 03/15/2024 13:17:55 Symbicort 160 mcg-4.5 mcg/actua tion HFA aerosol inhaler 2023 024 [facility] [address], [address], 03/15/2024 13:17:56 Spiriva with [employer] r 18 mcg and inhalatio n capsules 2023 024 [facility] [address], [address], 10/07/2023 15:22:43 albuterol sulfate HFA 90 mcg/actua tion aerosol inhaler 2023 024 [facility] [address], [address], 10/07/2023 15:22:41 Symbicort 160 mcg-4.5 mcg/actua tion HFA aerosol inhaler 2023 024 [facility] [address] In [facility], [address] [place] [address], [address], 10/07/2023 15:22:42 Spiriva with [employer] 18 mcg and inhalatio n capsules 2022 023 [facility] [address] In [facility], [address] [place] [address], [address], 04/28/2023 11:13:25 albuterol sulfate HFA 90 mcg/actua tion aerosol inhaler 2022 023 [facility] [address] In [facility], [address] [place] [address], [address], 04/28/2023 11:13:27 Symbicort 160 mcg-4.5 mcg/actua tion HFA aerosol inhaler 2022 023 [facility] [address], [address], 04/28/2023 11:13:25 Patient TargetsNo targets recorded. Patient Instructions Encounter Date Encounter Id Patient Instructions Last Modified By Organization Details Last Modified Time 04/28/2023 [id number] complete PFT w/ post bronchodilator spirometry* Not available 05/10/2024 12:44:21 10/07/2023 [id number] complete PFT w/ post bronchodilator spirometry* [email or web address] Not available 03/14/2024 08:31:10 03/15/2024 [id number] complete PFT w/ post bronchodilator spirometry* Not available 03/15/2024 13:17:51 Reason for Referral None Reported. Results Created Date Observation Date Name Description Value Unit Range Abnormal Flag Note LastModifiedBy Organization Detail LastModifiedTime 03/25/20 22 11/23/2019 polys omnog lex, split night No observ ation record ed. [id number] Not Available 11/19/2022 06:10:07 03/27/20 22 09/30/2019 pulmo nary funct ion test* No observ ation record ed. [id number] [facility] (One Call Scheduling) [address] [place], [address], 11/19/2022 06:10:07 04/08/20 22 04/08/2022 CT, chest , w/o contr ast No observ ation record ed. [id number] [facility] Add On Lab Orders [address] [place], [address], 11/19/2022 06:10:07 04/09/20 22 04/08/2022 compl ete PFT w/ post [facility] hodil ator christopher metry * No observ ation record ed. [id number] Not Available 11/19/2022 06:10:07 04/28/20 22 2021 LDCT, chest , for lung cance r scree kesha No observ ation record ed. [id number] Not Available 11/19/2022 06:10:07 04/28/20 22 11/14/2019 LDCT, chest , for lung cance r scree kesha No observ ation record ed. [id number] Not Available 11/19/2022 06:10:07 02/27/20 23 02/25/2023 compl ete PFT w/ post [facility] hodil ator christopher metry * No observ ation record ed. BARCODE [facility] (One Call Scheduling) [address] [place], [address], 02/26/2023 10:15:24 07/07/20 23 07/06/2023 trans esoph ageal echoc ardio graph y, real- time with image docum entat ion (2D); inclu ding probe place ment, image acqui sitio n, inter preta tion and repor t (PROC ) No observ ation record ed. [address] [facility] [address], [place], [address], 08/11/2023 10:26:30 10/07/19 24 10/06/2023 XR, chest , 2 view No observ ation record ed. BARCODE Not Available 2023 16:20:55 10/07/19 24 10/06/2023 XR, chest , 2 view No observ ation record ed. BARCODE Not Available 2023 18:03:48 11/04/19 24 11/04/2023 stres s echoc ardio gram No observ ation record ed. [facility] [address], [place], [address], 11/06/2023 12:05:20 03/16/20 24 03/15/2024 compl ete PFT w/ post [facility] hodil ator christopher metry * No observ ation record ed. BARCODE [facility] (One Call Scheduling) [address] [place], [address], 03/16/2024 11:41:00 Result Notes None recorded. 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 3 16:13:26 Microscopi c hematuria 037986396 Active Not Available [facility] 3 16:13:26 Body mass index 40+ - severely obese 545487078 Active 2019 Not Available [facility] 3 16:13:26 Degenerati on of interverte bral disc 91654358 Active 2019 Not Available [facility] 3 16:13:26 Obstructiv e sleep apnea syndrome 51597646 Active 2019 Not Available [facility] 3 16:13:27 Solitary nodule of lung 660234259 Active 2023 Vinnie Martinez MD [address] [facility], [facility] [address], [place], [address] , 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 Procedures Surgical History None recorded. Imaging Results Imaging Date Name Status LastModified by Organization Details LastModified Time 11/23/2019 polysomnogram, split night completed [id number] Information not available 11/19/2022 06:10:07 2021 LDCT, chest, for lung cancer screening completed [id number] Information not available 11/19/2022 06:10:07 11/14/2019 LDCT, chest, for lung cancer screening completed [id number] Information not available 11/19/2022 06:10:07 04/08/2022 CT, chest, w/o contrast completed [id number] [facility] Add On Lab Orders [address] [place], [address], 11/19/2022 06:10:07 04/08/2022 complete PFT w/ post bronchodilator spirometry* completed [id number] Information not available 11/19/2022 06:10:07 09/30/2019 pulmonary function test* completed [id number] [facility] (One Call Scheduling) [address] [place], [address], 11/19/2022 06:10:07 02/25/2023 complete PFT w/ post bronchodilator spirometry* completed BARCODE [facility] (One Call Scheduling) [address] [place], [address], 02/26/2023 10:15:24 07/06/2023 transesophageal echocardiography, real-time with image documentation (2D); including probe placement, image acquisition, interpretation and report (PROC) completed [email or web address] [facility] [address], [place], [address], 08/11/2023 10:26:30 10/06/2023 XR, chest, 2 view completed BARCODE Informa tion not available 10/07/2023 16:20:55 10/06/2023 XR, chest, 2 view completed BARCODE Informa tion not available 10/07/2023 18:03:48 11/04/2023 stress echocardiogram completed [facility] [address], [place], [address], 11/06/2023 12:05:20 03/15/2024 complete PFT w/ post bronchodilator spirometry* completed [facility] (One Call Scheduling) [address] [place], [address], 03/16/2024 11:41:00 Procedure Notes None recorded. Medical [...] % 93 /min 15 /min 98.3 [degF] 143468. 11 g 140 mm[Hg] 90 mm[Hg] Not Available [facility] 3 06:00:04 Date Recorded Body mass index (BMI) Body height Oxygen saturation Oxygen saturation in Arterial blood by Pulse oximetry Heart rate Body temperature Body weight Systolic blood pressure Diastolic blood pressure Provider Name and Address Organization Details Last Updated DateTime 2 60.6 kg/m2 154.94 cm 97 % 97 % 86 /min 96.3 [degF] 194750. 43 g 130 mm[Hg] 74 mm[Hg] Not Available [facility] 3 06:00:05 Date Recorded Body height Body mass index (BMI) Body weight Body temperature Heart rate Oxygen saturation Oxygen saturation in Arterial blood by Pulse oximetry Systolic blood pressure Diastolic blood pressure Provider Name and Address Organization Details Last Updated DateTime 3 154.94 cm 59 kg/m2 777765. 82 g 98.4 [degF] 93 /min 96 % 96 % 126 mm[Hg] 72 mm[Hg] Hanh Bowser MA [facility] 3 11:00:29 Date Recorded Heart rate Respiratory rate Provider N raghavendra and Address Organization Details Last Updated DateTime 04/28/2023 93 /min 15 /min Vinnie Martinez MD [address] [place] [address], [address], [facility] 04/28/2023 11:19:34 Date Recorded Body height Body mass index (BMI) Body weight Body temperature Heart rate Oxygen saturation Oxygen saturation in Arterial blood by Pulse oximetry Systolic blood pressure Diastolic blood pressure Provider Name and Address Organization Details Last Updated DateTime 4 154.94 cm 59.3 kg/m2 279843 g 97.7 [degF] 86 /min 97 % 97 % 124 mm[Hg] 68 mm[Hg] Hanh Bowser MA [facility] 15:07:44 Date Recorded Heart rate Respiratory rate Provider N raghavendra and Address Organization Details Last Updated DateTime 10/07/2023 86 /min 15 /min Vinnie Martinez MD [address], [place] [address], [place], [address], [facility] 10/07/2023 15:25:40 Date Recorded Body height Body mass index (BMI) Body weight Oxygen saturation Oxygen saturation in Arterial blood by Pulse oximetry Heart rate Systolic blood pressure Diastolic blood pressure Provider Name and Address Organization Details Last Updated DateTime 154.94 cm 59 kg/m2 961086. 82 g 96 % 96 % 90 /min 122 mm[Hg] 70 mm[Hg] Costa Lemus CMA [facility] 12:42:12 Date Recorded Body temperature Heart rate Respiratory rate Provider Name and Address Organization Details Last Updated DateTime 03/15/2024 97.3 [degF] 90 /min 15 /min Vinnie Martinez MD [address], [address], [address], [facility] 03/15/2024 13:30:13 Social History Question Answer Notes LastModified by Organizat ion Details LastModified Time Tobacco Smoking Status Former Smoker quit in 2015 Not Available [facility] 11/19/2022 05:54:49 In The 14 Days Before Symptom Onset, Have You Had Close Contact With A Laboratory-confir med COVID-19 While That Case Was Ill? No [id number] Information not available 11/19/2022 In The 14 Days Before Symptom Onset, Have You Had Close Contact With A Person Who Is Under Investigation For COVID-19 While That Person Was Ill? No [id number] Information not available 11/19/2022 What Type Of [...] 04/28/2023 Have You Recently Traveled Abroad? No [id number] Information not available 11/19/2022 Do You Have [...] Time Sister Family history of malignant neoplasm [id number] Not available 11/19/2022 05:57:05 Sister Chronic obstructive pulmonary disease [id number] Not available 11/19/2022 05:57:05 Father Myocardial infarction [id number] Not available 11/19/2022 05:57:06 Son Asthma [id number] Not available 11/19/2022 05:57:06 Medical History No medical history recorded. Gynecological HistoryNo gynecological history recorded. Obstetrics History GPAL:G 0 P 0 0 0 0 Immunizations Vaccine Type Date Status Note Provider Nam e and Address Organization Details Recorded Time COVID-19, mRNA, LNP-S, PF, 30 mcg/0.3 mL dose 2 completed Not Available [facility] 03/30/2023 16:13:27 COVID-19, mRNA, LNP-S, PF, 30 mcg/0.3 mL dose 1 completed Not Available [facility] 03/30/2023 16:13:27 COVID-19, mRNA, LNP-S, PF, 30 mcg/0.3 mL dose 1 completed Not Available [facility] 03/30/2023 16:13:27 Influenza, split virus, quadrivalent, preservative 0 completed Not Available [facility] 03/30/2023 16:13:27 Past Encounters Encounter ID Performer Location Encounter Start Date Encounter Closed Date Diagnosis/Indication Diagnosis SNOMED-CT Code Diagnosis ICD10 Code Diagnosis Note [id number] [facility] [address] [address] 03/26/2022 00:00:00 03/26/2022 11:24:25 [id number] [facility] [address] [address] 04/28/2022 00:00:00 04/28/2022 15:42:25 [id number] Vinnie Martinez MD [facility] [address] [address] 04/28/2023 10:19:01 04/28/2023 15:20:45 Solitary nodule of lung 785701178 R91.1 Asthma-chr onic obstructive pulmonary disease overlap syndrome 5095398464 5371819 J44.9 Obstructiv e sleep apnea syndrome 89125321 G47.33 [id number] Vinnie Martinez MD [facility] [address] 10/07/2023 14:43:48 10/08/2023 08:14:36 Asthma-chronic obstructive pulmonary disease overlap syndrome 2169264510 5443468 J44.9 Solitary n odule of lung 326722766 R91.1 Obstructiv e sleep apnea syndrome 52129533 G47.33 [id number] Vinnie Martinez MD [facility] [address] [address] 03/15/2024 11:44:04 03/16/2024 08:17:58 Asthma-chronic obstructive pulmonary disease overlap syndrome 2173001174 6504267 J44.9 Solitary n odule of lung 343325240 R91.1 Obstructiv e sleep apnea syndrome 36596986 G47.33 Health Concerns Section Related Observation LastModified by Organization Detai ls LastModified Time None Recorded Concern Status LastModified by Organization Details LastModified Time None Recorded Advance Directives Directive None Recorded Payers Encounter Date Sequence Insurance Name Policy Number Policy Hill Covered Member ID Hill Member ID Guarantor Name 04/28/2023 1 [facility] (MEDICARE REPLACEMENT/A DVANTAGE - PPO) [id number] Laurel Vargas Lucio [id number] Laurel Sam Lucio 10/07/2023 1 [facility] (MEDICARE REPLACEMENT/A DVANTAGE - PPO) [id number] Laurel Vargas Lucio [id number] Laurel Vargas Lucio 03/15/2024 1 [facility] (MEDICARE REPLACEMENT/A DVANTAGE - PPO) [id number] Laurel Vargas Lucio [id number] Laurel Valdes Notes Date Note Type Note [...] up stairs, heatAlleviating factors: restModified [employer] (mMRC) Dyspnea Scale - Grade 2Grade 0 I only get breathless with strenuous exercise .Grade 1 I get short of breath when hurrying on the level or walking up a slight hill .Grade 2 I walk slower than people of the same age on the level because of breathlessness or have to stop for breath when walking at my own pace on the level .Grade 3 I stop for breath after walking about 100 yards or after a few minutes on the level .Grade 4 I am too breathless to leave the house or I am breathless when dressing .Treatment history:albuterol HFA as needed since 2013QVAR 80 mcg 2 puffs BID 2013-2014Spiriva [employer] one daily since 2019Symbicort 160/4.5 mcg 2 puffs daily since 2019 Patient's personal best peak flow remains at 350 L/min.Other symptoms:Productive cough: whiteWheezing: yesChest tightness: yesOrthopnea: noFrequent throat clearing or swallowing: yesPalpitations: noHeartburn: noDysphagia: noEdema: yesEnvironmental exposures:Nicotine smoke: 1 ppd 2078-8962 = 38 pack yearsPaint: noDye: noDust mites: [...] slight chance of dozing. Vinnie Martinez MD [address] [place] [address], [phone], [facility] [employer] 04/28/2023 11:19:45 10/07/2023 text/html Primary care/Ref erring provider: Feliciano Griffin MD; Yemi Pandya PA-C CC: Patient is here for surgical clearance. She has severe . Her aortic valve replacement is scheduled for 10/20/23. Fax number is [phone].Patient is here to go over her ACO management.Initial development of shortness of breath: 2014Duration of shortness of breath: 9 yearsCondition of shortness of breath: stableTiming of shortness of breath: noneFrequency: up to 8 times a dayLimits activities: yesAggravating factors: walking, going up stairs, heatAlleviating factors: restModified [employer] (mMRC) Dyspnea Scale - Grade 2Grade 0 I only get breathless with strenuous exercise .Grade 1 I get short of breath when hurrying on the level or walking up a slight hill .Grade 2 I walk slower than people of the same age on the level because of breathlessness or have to stop for breath when walking at my own pace on the level .Grade 3 I stop for breath after walking about 100 yards or after a few minutes on the level .Grade 4 I am too breathless to leave the house or I am breathless when dressing .Treatment history:albuterol HFA as needed since 2013QVAR 80 mcg 2 puffs BID 2013-2014Spiriva Handihaler one daily since 2019Symbicort 160/4.5 mcg 2 puffs daily since 2019 Patient's personal best peak flow has increased from 350 to 380 L/min.Other symptoms:Productive cough: whiteWheezing: yesChest tightness: yesOrthopnea: noFrequent throat clearing or swallowing: yesPalpitations: noHeartburn: noDysphagia: noEdema: yesEnvironmental exposures:Nicotine smoke: 1 ppd 4435-1039 = 38 pack yearsPaint: noDye: noDust mites: [...] slight chance of dozing. Vinnie Martinez MD [address] [place] [address], [phone], [place] [facility] 10/07/2023 15:31:10 03/15/2024 text/html Primary care/Ref erring provider: Feliciano Griffin MD; FRANCIS Jiménez-CPatient is here to go over her ACO management.Initial development of shortness of breath: 2014Duration of shortness of breath: 10 yearsCondition of shortness of breath: stableTiming of shortness of breath: noneFrequency: up to 8 times a dayLimits activities: yesAggravating factors: walking, going up stairs, heatAlleviating factors: restModified [employer] (mMRC) Dyspnea Scale - Grade 2Grade 0 I only get breathless with strenuous exercise .Grade 1 I get short of breath when hurrying on the level or walking up a slight hill .Grade 2 I walk slower than people of the same age on the level because of breathlessness or have to stop for breath when walking at my own pace on the level .Grade 3 I stop for breath after walking about 100 yards or after a few minutes on the level .Grade 4 I am too breathless to leave the house or I am breathless when dressing .Treatment history:albuterol HFA as needed since 2013QVAR 80 mcg 2 puffs BID 2013-2014Spiriva Handihaler one daily since 2019Symbicort 160/4.5 mcg 2 puffs daily since 2019 Patient's personal best peak flow remains at 380 L/min.Other symptoms:Productive cough: whiteWheezing: yesChest tightness: yesOrthopnea: noFrequent throat clearing or swallowing: yesPalpitations: noHeartburn: noDysphagia: noEdema: yesEnvironmental exposures:Nicotine smoke: 1 ppd 9589-3477 = 38 pack yearsPaint: noDye: noDust mites: [...] chance of dozing. Vinnie Martinez MD [address] [facility], [place] [address], [place], [address], [facility] 03/15/2024 13:30:42 OBGyn Episode No OBEpisode recorded.
--- OUTSIDE RECORDS SUMMARY | 2024-11-16 11:30 | XMS_ITS | Patient Health Record ---
Author Organization [facility] Address [address] [facility] [address] [facility] [address] [place] [address] Care Team Providers Care District Administrator Name Role Phone Everette Griffin Unavailable [phone] REASON FOR REFERRAL No Information PROBLEMS Problem Type ICD Code Onset Dates Problem Status W/U Status Risk SNOMED Code Notes Problem Hypothyroidism, unspecified (E03.9) Active confirmed Hypothyr oidism (84936536) Problem Type 2 diabetes mellitus with diabetic chronic kidney disease (E11.22) Active confirmed Diabetic renal disease (817493799) Problem Obesity, unspecified (E66.9) Active confirmed Obesity (505621623) Problem 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) Active confirmed Aortic kang ve disorder (1828390) Problem Chronic obstructive pulmonary disease, unspecified (J44.9) Active confirmed Chronic obstructive pulmonary disease (24203482) Problem Chronic kidney disease, stage 4 (severe) (N18.4) Active confirmed Chronic kid mindy disease stage 4 (158939074) Problem Renal osteodystrophy (N25.0) Active confirmed Renal osteodyst rophy (68002142) Problem Secondary hyperparathyroidism of renal origin (N25.81) Active confirmed Secondary hyperparathyroidism of renal origin (88628492) Problem Edema, unspecified (R60.9) Active confirmed Edema (35629622) Problem Essential hypertension (I10) Active confirmed Essential hypertension (74509711) Problem Chronic kidney disease, stage 3 unspecified (N18.30) Active confirmed Chronic kidney disease stage 3 (disorder) (524724963) Encounters Encounter Location Date Provider Diagnosis [facility] [address] [facility] [address] [place] [address] 10/12/2024 Everette Griffin Chronic kidney disea se, stage 4 (severe) N18.4 ; Type 2 diabetes mellitus with diabetic chronic kidney disease E11.22 ; Proteinuria, unspecified R80.9 ; Essential hypertension I10 ; Renal osteodystrophy N25.0 ; Secondary hyperparathyroidism of renal origin N25.81 ; Acute metabolic acidosis E87.21 and Obesity, unspecified E66.9 [facility] [address] [facility] [address] [place] [address] 10/26/2024 Everette Griffin Chronic kidney disea se, stage 3 unspecified N18.30 ; Type 2 [...] se, stage 4 (severe) (ICD-10 - N18.4) 10/26/2024 Chronic kidney disea se, stage 3 unspecified (ICD-10 - N18.30) 10/12/2024 Proteinuria, unspecified (ICD-10 - R80.9) 10/26/2024 Type 2 diabetes mellitus with diabetic chronic kidney disease (ICD-10 - E11.22) 10/12/2024 Essential hypertensi on (ICD-10 - I10) 10/26/2024 Essential hypertensi on (ICD-10 - I10) 10/26/2024 Hypothyroidism, unspecified (ICD-10 - E03.9) 10/12/2024 Renal osteodystrophy (ICD-10 - N25.0) 10/12/2024 Secondary hyperparathyroidism of renal origin (ICD-10 - N25.81) 10/26/2024 Other nonrheumatic aortic valve disorders (ICD-10 - I35.8) 10/12/2024 Acute metabolic acidosis (ICD-10 - E87.21) 10/26/2024 Obesity, unspecified (ICD-10 - E66.9) 10/12/2024 Obesity, unspecified (ICD-10 - E66.9) 10/26/2024 Edema, unspecified (ICD-10 - R60.9) 10/26/2024 Chronic obstructive pulmonary disease, unspecified (ICD-10 - J44.9) PLAN OF TREATMENT Next Appt Details Provider Name:Everette Griffin , 02/22/2025 02:30:00 PM, [address], [facility] [address], [place], [address],
--- OUTSIDE RECORDS SUMMARY | 2024-11-16 11:30 | XMS_ITS | Referral Summary ---
Author Organization [facility] Address [address] [place] [address] Care Team Providers Care Panel Laminator Name Role Phone Daylin Lawrence MD Primary Care Provider [phone] Bry Castillo MD Unavailable [phone] Allergies No known active allergies Medications albuterol [...] on file Legal Sex Female 7:05 PM CAT WAGON OPERATOR Gender Identity Not on file Sexual Orientation Not on file Last Filed Vital Signs Vital Sign Reading Time Taken Comments Blood Pressure 129/72 10/21/2023 8:13 AM CAT WAGON OPERATOR Pulse 88 10/21/2023 8:13 AM CAT WAGON OPERATOR Temperature 36.8 C (98.2 F) 10/21/2023 8:13 AM CAT WAGON OPERATOR Respiratory Rate 18 10/21/2023 4:00 AM CAT WAGON OPERATOR Oxygen Saturation 97% 10/21/2023 8:13 AM CAT WAGON OPERATOR Inhaled Oxygen Concentration - - Weight 143.7 kg (316 lb 14.4 oz) 10/21/2023 5:54 AM CAT WAGON OPERATOR Height 154.9 cm (5' 1 ) 10/20/2023 7:07 AM CAT WAGON OPERATOR Body Mass Index 59.88 10/20/2023 7:07 AM CAT WAGON OPERATOR Plan of Treatment Not on file Medical Devices Implanted Type Area Functional Skills Tutor Device Identifier Shelf Expiration Date Model / Serial / Lot [employer] Device Clsr Perclose Prostyle Sut-Mediatd Closure-Repair Sys 93544-45 - [id number] Implanted:Qty: 1 on 10/20/2023 by Bry Castillo MD at [facility] [employer] 07/21/2025 [id number] / / [id number] [employer] Device Clsr Perclose Prostyle Sut-Mediatd Closure-Repair Sys 23258-49 - [id number] Implanted:Qty: 1 on 10/20/2023 by Bry Castillo MD at [facility] 07/21/2025 [id number] / / [id number] [employer] Valve Aortic Trnscath Neli 3 Ultra Resilia 26mm [id number] - [id number] - [id number] Implanted:Qty: 1 on 10/20/2023 by Bry Castillo MD at [facility] [employer] 02/08/2026 [id number] / [id number] / [employer]am Angio-Seal Vip 6fr Closere Device [id number] - [id number] Implanted:Qty: 1 on 10/20/2023 by Bry Castillo MD at [facility] [employer] [id number] / / Insurance MEDICARE SOLUTIONS MEDICARE SOLUTIONS Care Teams Panel Laminator Relationship Specialty Start Date End Date Daylin Lawrence MD [address] [place] [address] PCP - General Internal Medicine 08/21/23 Bry Castillo MD [address] [place] [address] Consulting Physician Cardiovascular Disease 10/21/23
--- OUTSIDE RECORDS SUMMARY | 2024-11-16 11:30 | XMS_ITS | CONTINUITY OF CARE DOCUMENT ---
Author Name yo ram Address Unknown Organization [facility] Address [address] [place] [address] Phone [phone] Care Team Providers Care Awning Hanger Name Role Phone Anna NETTLES, Bry Webb Unavailable [phone] BARTOLO NG MD Unavailable [phone] BARTOLO NG MD Unavailable PROBLEMS Condition Status Date Provider Notes COPD active Feliciano Griffin MD Chest pain--no sig CAD on cath 10/2022 active Feliciano Griffin MD Edema - generalized active Bry Castillo MD Sleep apnea active Bry Castillo MD Hypertension active Bry Castillo MD CKD 3 active Dequan Ware Proteinuria, f/w Dr. Loyola active Feliciano quintero MD JULIO on CPAP active Feliciano Griffin MD Venous insufficiency active Feliciano Griffin MD Aortic stenosis, severe by echo 06/2023 active Dequan Ware FAMILY HISTORY OF HEART DISEASE active Armani Griffin MD Sinus tachycardia active Feliciano Griffin MD Morbid obesity active Feliciano Griffin MD Hypothyroidism active Feliciano Griffin MD Hyperlipidemia active Feliciano Griffin MD HTN essential--echo ef nl, s evere , 04/2022 active Feliciano Griffin MD ENCOUNTERS Date Type Provider Location Encounter Diag nosis - In-person encounter Office Visit Bry Castillo MD [facility] - In-person encounter Office Visit Bry Castillo MD [facility] - In-person encounter Office Visit Bry Castillo MD [facility] Edema - generalized - In-person encounter Office Visit Bry Castillo MD [facility] HypertensionSleep apnea - In-person encounter Office Visit Feliciano Griffin MD [facility] Aortic stenosis, severe by echo KD 3 - In-person encounter Office Visit Feliciano Griffin MD [facility] Chest pain--no sig CAD on cath ortic stenosis, severe by echo 06/2023 - In-person encounter Office Visit Feliciano Griffin MD [facility] - In-person encounter Office Visit Feliciano Griffin MD [facility] HTN essential--echo ef nl, severe , ortic stenosis, severe by echo 06/2023 - In-person encounter Office Visit Feliciano Griffin MD [facility] - In-person encounter Office Visit Feliciano Griffin MD [facility] JULIO on CPAPProteinuria, f/w Dr. Loyola - In-person encounter Office Visit Feliciano Griffin MD [facility] Chest pain--no sig CAD on cath 10/2022FAMILY HISTORY OF HEART DISEASEAortic stenosis, severe by echo 06/2023Venous insufficiency - In-person encounter Office Visit Feliciano Griffin MD [facility] HTN essential--echo ef nl, severe , [...] ruenenfelder pulse rate 90 /min Lisbeth Jordane [facility] weight E&M 308 [lb_av] Lisbeth Kapilnenfe [facility] height E&M 62 [in_i] Lisbeth Kapilnenfe [facility] Body Mass Index (Ratio) 58.34 kg/m2 Fadi luna [place] blood pressure, diastolic 94 mm[Hg] nkLog blood pressure, systolic 122 mm[Hg] [facility] blood pressure, cuff size regular [facility] blood pressure, diastolic 94 mm[Hg] [facility] blood pressure, systolic 122 mm[Hg] [facility] respiratory rate E&M 18 /min Solange victor pulse rate 87 /min [facility] oxygen saturation, oximetry 97 % [facility] weight E&M 319 [lb_av] [facility] height E&M 62 [in_i] [facility] Body Mass Index (Ratio) 58.89 kg/m2 Jonathan Castillo MD blood pressure, diastolic 82 mm[Hg] Li nkLog blood pressure, systolic 185 mm[Hg] Tiffanie og blood pressure, cuff size regular [facility] blood pressure, diastolic 82 mm[Hg] [facility] blood pressure, systolic 185 mm[Hg] Michael ayala [place] pulse rate 102 /min Solange P[place]uta respiratory rate E&M 18 /min Solange Nicholson jackelinr oxygen saturation, oximetry 95 % Solange Pachuta weight E&M 322 [lb_av] Solange [place] height E&M 62 [in_i] Solange [place] Body Mass Index (Ratio) 57.61 kg/m2 Jonathan Castillo MD blood pressure, cuff size large [facility] blood pressure, diastolic 100 mm[Hg] Ke rri Grantuechance blood pressure, systolic 140 mm[Hg] Gamaliel Cobian oxygen saturation, oximetry 96 % Lisbeth Cobian respiratory rate E&M 12 /min Lisbeth daniel pulse rate 111 /min Lisbeth Aurora [facility] weight E&M 315 [lb_av] Lisbeth [facility] height E&M 62 [in_i] Lisbeth [...] MD blood pressure, diastolic 85 mm[Hg] To [facility] blood pressure, systolic 147 mm[Hg] Ton [facility] oxygen saturation, oximetry 97 % [facility] respiratory rate E&M 18 /min [facility] pulse rate 97 /min [facility] weight E&M 342 [lb_av] [facility] height E&M 62 [in_i] [facility] Body Mass Index (Ratio) 64.92 kg/m2 Armani [...] Griffin MD respiratory rate E&M 18 /min [facility] blood pressure, diastolic 80 mm[Hg] To [facility] blood pressure, systolic 140 mm[Hg] [facility] pulse rate 107 /min [facility] blood pressure, resting Yes [facility] height E&M 62 [in_i] [facility] weight E&M 250 [lb_av] [facility] oxygen saturation, oximetry 97 % [facility] ALLERGIES No Known Drug Allergies RESULTS Date Observation Value Provider Reference Range Interpretation Location Estimated Glomerular Filtration Rate (calc) 61 mL/min/{ 1.73_m2} [facility] [place] [address] NT-pro BNP 56 [facility] <=300 Normal [place] [address] aspartate aminotransferase (SGOT), serum 15 1/L [facility] 10-45 Normal [place] [address] alanine aminotransferase (SGPT), serum 19 1/L [facility] 7-45 Normal [place] [address] Alkaline phosphatase 123 [facility] 40-130 Normal C, [place] [address] albumin, serum 4.6 g/dL [facility] 3.5-5.0 Normal [place] [address] protein, total, serum 7.9 g/dL [facility] 6.5-8.5 Normal [place] [address] bilirubin, serum, total 0.3 mg/dL [facility] 0.1-1.2 Normal [place] [address] calcium, serum 10.1 mg/dL [facility] 8.5-10.3 Normal C, [place] [address] blood glucose, random 71 mg/dL [facility] 70-199 Normal C, [place] [address] creatine, serum 1.05 mg/dL [facility] 0.60-1.10 Normal C, [place] [address] urea nitrogen, blood 18 mg/dL [facility] 6-25 Normal C, C [place] [address] anion gap, serum 11 mmol/L [facility] 2-15 Normal C, [place] [address] carbon dioxide, venous blood 27 mmol/L [facility] 22-32 Normal C, [place] [address] chloride, serum 103 mmol/L [facility] 97-110 Normal C, [place] [address] potassium, serum 4.4 MMOL/L [facility] 3.3-4.9 Normal , [place] [address] sodium, serum 141 mmol/L [facility] 135-145 Normal C, [place] [address] activated partial thromboplastin time (aPTT) 34 s [facility] 28-38 Normal C, [place] [address] international normalized ratio (INR) 0.96 [facility] 0.90-1.20 Normal , [place] [address] prothrombin time (patient) 11.0 s [facility] 10.3-13.7 Normal , [place] [address] Absolute Basophils 0.1 K/CUMM [facility] 0.0-0.1 Normal C, [place] [address] Absolute Monocytes 0.5 K/CUMM [facility] 0.2-0.8 Normal , [place] [address] Absolute Lymphocytes 1.3 K/CUMM [facility] 0.8-3.3 Normal , [place] [address] Absolute Neutrophils 4.1 K/CUMM [facility] 1.5-6.5 Normal C, [place] [address] nucleated red blood cells as percent of [...] TABLET BY MOUTH EVERY DAY Ana Brown furosemide 40 mg tablet active TAKE 1 TABLET BY MOUTH EVERY OTHER DAY Sanam Cramer aspirin 81 mg tablet,chewable active TAKE 1 [...] smoking history, tot al pack/year 365 Hetal Azevedo NP smoking history, tot al pack/day 1 Hetal Azevedo NP cigarette use yes Hetal Azevedo NP smoking status Former smoker Hetal lua NP smoking, date started 1972 [facility] smoking history, tot al pack/year 365 [facility] smoking history, tot al pack/day 1 [facility] cigarette use yes [facility] smoking status Former smoker [facility] smoking, date started 1972 [facility] smoking history, tot al pack/year 365 [facility] smoking history, tot al pack/day 1 [facility] cigarette use yes [facility] smoking status Former smoker [facility] social history reviewed E&M revi ewed - [...] required Debora Sanon smoking, date started 1972 [facility] smoking history, tot al pack/year 365 [facility] smoking history, tot al pack/day 1 [facility] cigarette use yes Minerva Booker smoking status Former smoker Minerva ramirez social history reviewed E&M revi ewed - no changes required Dequan Ware social history E&M S moking History: Shane boggs is a former smoker. Feliciano Griffin MD social history reviewed E&M revi ewed - no changes required Feliciano Griffin MD smoking, date started 1972 Tho hutchison Vargas smoking history, tot al pack/year 365 Neena Vargas smoking history, tot al pack/day 1 Neena Vargas cigarette use yes Neena Otto nba smoking status Former smoker Neena maynard social history E&M S moking History: Shane boggs is a former smoker. Memo Calles social history reviewed E&M revi ewed - no changes required Memo Calles smoking, date [facility], tot al pack/year 365 Tonsha Glasgow smoking history, tot al pack/day 1 Tonsha Glasgow cigarette use yes Tonsha Glasgow smoking status Former smoker [facility] number of grandchildren Feliciano Griffin MD T [...] MD smoking history, tot al pack/year 365 [facility] smoking history, tot al pack/day 1 Tonsha Glasgow smoking, date started 1972 Tonsha Glasgow cigarette use yes Tonsha Glasgow smoking status [facility] FAMILY HISTORY Family Member Condition Father Family History of Co ngestive Heart Failure: Father Family History of Co ronary Artery Disease: INSURANCE PROVIDERS Payer name Policy type / Coverage type Ashley red constitution party ID AARP MEDICARE ADVANTAGE ([facility] COMPLETE PPO) Other [id number] ADVANCE DIRECTIVES Name Date DISCUSSED - NO DECISION MADE TREATMENT PLAN Date Name Performer [id number],C, H er updated medication list for this problem includes: Levothyroxine Sodium 137 Mcg Oral Tablet (Levothyroxine sodium) Bry Castillo MD [id number],S, Bry Castillo MD [id number],C,S ees pulmonary A lpha-[address] s e[address]. Martinez @ [facility] for pulmonary Bry Castillo MD [id number],S, H er updated medication list for this problem includes: Pravastatin Sodium 10 Mg Oral Tablet (Pravastatin sodium) Bry Castillo MD [id number],S,has JULIO Maren Castillo MD [id number],S, B P today: 140/100 P rior BP: 167/81 (07/13/2023) Her updated medication list for this problem includes: Losartan Potassium 50 Mg Oral Tablet (Losartan potassium) Bry Castillo MD [id number],C, Severe aortic stenosis. No evidence of aortic insufficiency. Peak AV velocity: 4.03 m/s The Aortic Valve Peak Gradient is 6 5.07 mmHg The Aortic Valve Mean Gradient is 41.39 mmHg The DRAKE is 0.67 cm2. S he had heart carth in December of 2022 done at [facility] P AP is 34/14 and PCW is 17 gradient of 30 across the valve normal coronaries normal LVEF no MR Bry Castillo MD [id number],C,sees Dr. Melissa Castillo MD [id number],S, Dequan Paredes i [id number],S, Dequan Paredes i [id number],S, Dequan Paredes i [id number],S, Dequan Paredes i [id number],S, Dequan Ahmedza i [id number],S, Dequan Ahmedza i [id number],S, Dequan Ahmedza i [id number],S, Dequan Ahmedza i [id number],S, Dequan Ahmedza i [id number],S, Dequan Ahmedza i [id number],S, Dequan Ahmedza i [id number],S, Dequan Ahmedza i [id number],S, Dequan Ahmedza i [id number],S, Dequan Ahmedza i [id number],S, Debora Norm obsmeyer [id number],S, Debora Norm obsmeyer [id number],S, Debora Onrm obsmeyer [id number],S, Debora Norm obsmeyer [id number],W, Dequan Ahmedza i [id number],W, Dequan Ahmedza i [id number],S, Dequan Ahmedza i [id number],S, Dequan Ahmedza i [id number],S, Dequan Ahmedza i [id number],S, Dequan Ahmedza i [id number],S, Dequan Ahmedza i [id number],W, Feliciano Griffin MD [id number],B, Dequan Ahmedza i [id number],S, Dequan Cuellartien i [id number],S, Dequan Cuellartien i [id number],S, Dequan Cuellartien i [id number],S, Feliciano Griffin MD [id number],S, Feliciano Griffin MD [id number],S, Feliciano Griffin MD [id number],S, Feliciano Griffin MD [id number],S, Feliciano Griffin MD [id number],B, Feliciano Griffin MD Cardiology:This visi t has [...] 1 tablet by mouth every day Bry Csatillo MD Cardiology: S ees pulmonary A lpha-[address] s e[address]. Martinez @ [facility] for pulmonary Hetal Celestinstoney BEAN Cardiology: T [...] 140/100 (07/23/2023) Bry Castillo MD Cardiology: s nerys Dr. Milla perera 1.05 Bry Castillo MD Cardiology Bry Castillo MD Cardiology: T AVR 26 valve Bry Castillo MD Cardiology: S ees pulmonary A lpha-[address] s e[address]. Martinez @ [facility] for pulmonary Bry Castillo MD Cardiology:switch her [...] MD Cardiology Bry Castillo MD Cardiology:Sees pulm onary A lpha-[address] s e[address]. Martinez @ [facility] for pulmonary Bry Castillo MD Cardiology: H [...] carth in December of 2022 done at [facility] P AP is 34/14 and PCW is 17 gradient of 30 across the valve normal coronaries normal LVEF no MR Bry Castillo MD Cardiology:sees Dr. Milla Castillo MD Cardiology Dequan Ware Cardiology Dequan Ahmedzai Cardiology Dequan Ahcasey Cardiology Dequan Ware Cardiology Dequan Ware Cardiology Dequan Ahmedzai Cardiology Dequan Ahmedzai Cardiology [...] Ahmedzai Telehealth Dequan Ahmedzai Telehealth Dequan Ahmedzai Cardiology follow up Feliciano huff MD Cardiology [...] completed FVC / MVV with bronchodilator - 97370 Feliciano Griffin MD completed FRC - 02618 Feliciano Griffin MD complete d SpO2 w/o 6min walk/titration Feliciano Griffin MD completed EKG Feliciano Griffin MD completed
--- OUTSIDE RECORDS SUMMARY | 2024-11-16 11:30 | XMS_ITS | Clinical Summary ---
Author Organization [facility] Address [address] [place] [address] Care Team Providers Care Assembler Dielectric Heater Name Role Phone Daylin Lawrence MD Primary Care Provider [phone] Bry Castillo MD Unavailable [phone] Allergies No known active allergies Medications albuterol [...] joint disease) Cataract Sleep apnea Motion sickness Swjna-0-htgiugmnlvf deficiency (CMS/HCC) (HCC) Family History Medical History [...] on file Legal Sex Female 7:05 PM PROPERTY DEVELOPER Gender Identity Not on file Sexual Orientation Not on file Obstetrics History Last Filed Vital Signs Vital Sign Reading Time Taken Comments Blood Pressure 129/72 10/21/2023 8:13 AM PROPERTY DEVELOPER Pulse 88 10/21/2023 8:13 AM PROPERTY DEVELOPER Temperature 36.8 C (98.2 F) 10/21/2023 8:13 AM PROPERTY DEVELOPER Respiratory Rate 18 10/21/2023 4:00 AM PROPERTY DEVELOPER Oxygen Saturation 97% 10/21/2023 8:13 AM PROPERTY DEVELOPER Inhaled Oxygen Concentration - - Weight 143.7 kg (316 lb 14.4 oz) 10/21/2023 5:54 AM PROPERTY DEVELOPER Height 154.9 cm (5' 1 ) 10/20/2023 7:07 AM PROPERTY DEVELOPER Body Mass Index 59.88 10/20/2023 7:07 AM PROPERTY DEVELOPER Plan of Treatment Health Maintenance Due Date Last Done Comments Breast Cancer Screening-Mammogram 1963 Cervical Cancer Screening 1963 Colon Cancer Screening-Colonoscopy 1963 Depression Screening 1963 Hepatitis C Screening 1963 Hepatitis B Screening 1981 Regular Well Visit/Exam 18-64 1981 Pneumococcal vaccine <65 (1 of 2 - PCV) 1982 Zoster Vaccine (1 of 2) 2013 Covid-19 Vaccine (2023-2 5 season) 2024 01/21/2023, 12/17/2021, 12/17/2021, Additional history exists Influenza Vaccine (#1) 2024 , 05/26/2022, 07/08/2021, Additional history exists DTaP/Tdap/Td Vaccine (2 - Td or Tdap) 10/12/2024 10/12/2014 Medical Devices Implanted Type Area Conference Service Coordinator Device Identifier Shelf Expiration Date Model / Serial / Lot [employer] Device Clsr Perclose Prostyle Sut-Mediatd Closure-Repair Sys 43655-10 - [id number] Implanted:Qty: 1 on 10/20/2023 by Bry Castillo MD at [facility] [employer] 07/21/2025 23214-05 / / [id number] [employer] Device Clsr Perclose Prostyle Sut-Mediatd Closure-Repair Sys 02391-21 - [id number] Implanted:Qty: 1 on 10/20/2023 by Bry Castillo MD at [facility] [employer] 07/21/2025 86584-18 / / [id number] [employer] Valve Aortic Trnscath Neli 3 Ultra Resilia 26mm [id number] - [id number] - [id number] Implanted:Qty: 1 on 10/20/2023 by Bry Castillo MD at [facility] [employer] 02/08/2026 [id number] / [id number] / [employer] Angio-Seal Vip 6fr Closere Device [id number] - [id number] Implanted:Qty: 1 [facility] 10[facility]20[id number] / / Insurance MEDICARE SOLUTIONS MEDICARE SOLUTIONS Care Teams Assembler Dielectric Heater Relationship Specialty Start Date End Date Daylin Lawrence MD [address] [place] [address] PCP - General Internal Medicine 08/21/23 Bry Castillo MD [address] [place] [address] Consulting Physician Cardiovascular Disease 10/21/23
--- OUTSIDE RECORDS SUMMARY | 2024-11-16 11:30 | XMS_ITS ---
Author Organization [facility] Office Address [address] [facility] [address] [facility] [address] [place] [address] Care Team Providers Care Electroplating Technician Name Role Phone Everette Griffin Unavailable [phone] PROBLEMS Problem Type ICD Code Onset Dates Problem Status W/U Status Risk SNOMED Code Notes Problem Chronic kidney disease, stage 3 unspecified (N18.30) Active confirmed Chronic kidney disease stage 3 (disorder) (952982568) Problem Type 2 diabetes mellitus with diabetic chronic kidney disease (E11.22) Active confirmed Diabetic renal disease (027387708) Problem Essential hypertension (I10) Active confirmed Essential hypertension (59950608) Problem 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) Active confirmed Aortic kang ve disorder (4805519) Problem Hypothyroidism, unspecified (E03.9) Active confirmed Hypothyr oidism (70228440) Problem Chronic obstructive pulmonary disease, unspecified (J44.9) Active confirmed Chronic obstructive pulmonary disease (18492581) Problem Obesity, unspecified (E66.9) Active confirmed Obesity (917518306) Problem Edema, unspecified (R60.9) Active confirmed Edema (83355294) Problem Chronic kidney disease, stage 4 (severe) (N18.4) Active confirmed Chronic kid mindy disease stage 4 (116053486) Problem Renal osteodystrophy (N25.0) Active confirmed Renal osteodyst rophy (14292032) Problem Secondary hyperparathyroidism of renal origin (N25.81) Active confirmed Secondary hyperparathyroidism of renal origin (01387427) Encounters Encounter Location Date Provider Diagnosis [place] [facility] [address] [facility] [address] [place] [address] 10/12/2024 Everette Griffin Chronic kidney disea se, [...] Name:Everette Griffin , 02/22/2025 02:30:00 PM, [address], [facility], Progress Notes * DOMINIC MARQUEZOB:[birth year] (59 yo F)Acc No.[id number]:10/12/2024 Progress Notes Patient: CONRADO MARQUEZ Provider: MD BAR, F.A.C.P, F.A.S.N. :1965 Age:59 Y Sex:Female Date:10/12/2024 Address:[address] [place] [address] Subjective: * Chief Complaints: * * Medical History: Objective: Assessment: * Assessment: 1. Chronic kidney disease, stage 4 (severe) - N18.4 (Primary) 2. 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 Proteinuria, unspecified - R80.9 4. Essential hypertension - I10 5. Renal osteodystrophy - N25.0 6. Secondary hyperparathyroidism of renal origin - N25.81 7. Acute metabolic acidosis - E87.21 8. Obesity, unspecified - E66.9 Plan: * Treatment: * Billing Information: * Visit Code: 75864 Office Visit, New Pt., Level 4. * Procedure Codes: * AR PADDER BLINDSTITCH Sign off status: Pending * Provider: MD BAR, F.A.C.P, F.A.S.N. Date: 10/12/2024
== END 2024-11-16 09:59 | disposition home or self-care (01) ==
PROVIDERS: PCP Internal Medicine Gastroenterology; Visit Provider Specialist
DX: N18.4 Chronic kidney disease, stage 4 (severe) (principal)
CPT/HCPCS: 76770

== ENCOUNTER 2025-03-01 07:00 | Outpatient (CLI) | payer MEDICARE, SELFPAY ==
--- OUTSIDE RECORDS SUMMARY | 2025-03-01 07:05 | XMS_ITS | Data Portability ---
Author Organization [facility], Main Office Address [address] [place] [address] Assessment Encounter Date Assessment Date Assessment LastModified by Organization Details LastModified Time 04/28/2023 04/28/2023 Assessment: Nicotine smoke: 1 ppd 0220-2981 = 38 pack years Left apical pulmonary nodule Mild ACO AAT PiMS 128 mg% Very severe OSAHS, AHI = 138 Plan: The following were reviewed and explained to the patient: [facility] split night sleep study 11/23/19 AHI [...] 16% Advised to continue not to smoke. Kbdrk-0-vrydbcnutx n deficiency (AAT) information were discussed: What [...] Advocated influenza vaccination annually and pneumonia vaccination CALRE. Advocated weight loss through diet and exercise. [...] 10/07/2023 10/07/2023 Assessment: Nicotine smoke: 1 ppd 6035-8927 = 38 pack years Left apical pulmonary nodule Mild ACO AAT PiMS 128 mg% Very severe OSAHS, AHI = 138 Plan: The following were reviewed and explained to the patient: [facility] split night sleep study 11/23/19 AHI [...] Bry Castillo and Dr. Nikolai Peters at [facility], scheduled for 10/20/23. (Fax number is [phone]). The patient will bring PAP unit and inhalers for perioperative use. Aggressive pulmonary toilet is recommended to clear airways of mucus and other secretions by deep breathing, incentive spirometry, postural drainage and percussion. Oxygen supplementation may be necessary to keep saturation between 89-94%. Advised to continue not to smoke. Mzjhk-6-yprgjadmup n deficiency (AAT) information were discussed: What [...] carrier. Patient will setup an appointment with [facility] for supplies and pressure adjustments. A [...] 03/15/2024 03/15/2024 Assessment: Nicotine smoke: 1 ppd 5633-1689 = 38 pack years Left apical pulmonary nodule Mild ACO AAT PiMS 128 mg% Very severe OSAHS, AHI = 138 Plan: The following were reviewed and explained to the patient: [facility] split night sleep study 11/23/19 AHI [...] -4% Advised to continue not to smoke. Gdxok-3-cezbaiivpq n deficiency (AAT) information were discussed: What [...] carrier. Patient will setup an appointment with [facility] for supplies and pressure adjustments. A [...] inhalatio n capsules 2023 024 [facility] [address] [facility], [address] [place] [address], [address], 03/15/2024 13:17:54 albuterol sulfate HFA 90 mcg/actua tion aerosol inhaler 2023 024 [facility] [address] [facility], [address] [place] [place] [address], [address], 03/15/2024 13:17:55 Symbicort 160 mcg-4.5 mcg/actua tion HFA aerosol inhaler 2023 024 [facility] [address], [address], 03/15/2024 13:17:56 Spiriva with [employer] r 18 mcg and inhalatio n capsules 2023 024 [facility] [address], [address], 10/07/2023 15:22:43 albuterol sulfate HFA 90 mcg/actua tion aerosol inhaler 2023 024 [facility] [address], [address], 10/07/2023 15:22:41 Symbicort 160 mcg-4.5 mcg/actua tion HFA aerosol inhaler 2023 024 [facility] [address] [facility], [address] [place] [place] [address], [address], 10/07/2023 15:22:42 Spiriva with [employer] 18 mcg and inhalatio n capsules 2022 023 [facility] [address] [facility], [address] [place] [address], [address], 04/28/2023 11:13:25 albuterol sulfate HFA 90 mcg/actua tion aerosol inhaler 2022 023 [facility] [address] [facility], [address] [place] [place] [address], [address], 04/28/2023 11:13:27 Symbicort 160 mcg-4.5 mcg/actua tion HFA aerosol inhaler 2022 023 [facility] [address], [address], 04/28/2023 11:13:25 Patient TargetsNo targets recorded. Patient Instructions Encounter Date Encounter Id Patient Instructions Last Modified By Organization Details Last Modified Time 04/28/2023 [id number] complete PFT w/ post bronchodilator spirometry* [email or web address] Not available 05/10/2024 12:44:21 10/07/2023 [id number] complete PFT w/ post bronchodilator spirometry* [email or web address] Not available 03/14/2024 08:31:10 03/15/2024 [id number] complete PFT w/ post bronchodilator spirometry* [email or web address] Not available 02/14/2025 08:30:46 Reason for Referral None Reported. Results Created Date Observation Date Name Description Value Unit Range Abnormal Flag Note LastModifiedBy Organization Detail LastModifiedTime 03/25/20 22 11/23/2019 polys omnog lex, split night No observ ation record ed. [id number] Not Available 11/19/2022 06:10:07 03/27/20 22 09/30/2019 pulmo nary funct ion test* No observ ation record ed. [id number] [facility] (One Call Scheduling) [address] [place], [address], 11/19/2022 06:10:07 04/08/20 22 04/08/2022 CT, chest , w/o contr ast No observ ation record ed. [id number] [facility] Add On Lab Orders [address] [place], [address], 11/19/2022 06:10:07 04/09/20 22 04/08/2022 compl ete PFT w/ post [facility] hodil ator christopher metry * No observ ation record ed. [id number] Not Available 11/19/2022 06:10:07 04/28/20 22 2021 LDCT, chest , for lung cance r scree kesha No observ ation record ed. [id number] Not Available 11/19/2022 06:10:07 04/28/20 22 11/14/2019 LDCT, chest , for lung cance r scree kesha No observ ation record ed. [id number] Not Available 11/19/2022 06:10:07 02/27/20 23 02/25/2023 compl ete PFT w/ post [facility] hodil ator christopher metry * No observ ation record ed. BARCODE [facility] (One Call Scheduling) [address] [place], [address], 02/26/2023 10:15:24 07/07/20 23 07/06/2023 trans esoph ageal echoc ardio graph y, real- time with image docum entat ion (2D); inclu ding probe place ment, image acqui sitio n, inter preta tion and repor t (PROC ) No observ ation record ed. [id number] [facility] [address], [place], [address], 08/11/2023 10:26:30 10/07/19 24 10/06/2023 XR, chest , 2 view No observ ation record ed. BARCODE Not Available 2023 16:20:55 10/07/19 24 10/06/2023 XR, chest , 2 view No observ ation record ed. BARCODE Not Available 2023 18:03:48 11/04/19 24 11/04/2023 stres s echoc ardio gram No observ ation record ed. [email or web address] [facility] [address], [place], [address], 11/06/2023 12:05:20 03/16/20 24 03/15/2024 compl ete PFT w/ post [facility] hodil ator christopher metry * No observ ation record ed. BARCODE [facility] (One Call Scheduling) [address] [place], [address], 03/16/2024 11:41:00 01/24/20 25 01/16/2025 imagi ng/di agnos tic resul t No observ ation record ed. [facility] [address] [facility] [address], [place], [address], 01/23/2025 15:23:11 Result Notes None recorded. 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 1409925304111 9107 Active 2021 Not Available [facility] 3 16:13:26 Microscopi c hematuria 885705782 Active Not Available [facility] 3 16:13:26 Body mass index 40+ - severely obese 396876762 Active 2019 Not Available [facility] 3 16:13:26 Degenerati on of interverte bral disc 61380588 Active 2019 Not Available [facility] 3 16:13:26 Obstructiv e sleep apnea syndrome 66452912 Active 2019 Not Available [facility] 3 16:13:27 Solitary nodule of lung 988481036 Active 2023 Vinnie Martinez MD [address] [facility], [address], [place], [address] , [place] [facility] 4 14:49:12 Notes:Medical History: Depre ssion Postnasal [...] 2018 AV replacement 2023 Occupational History: Disabled CLINICAL SCIENCE LIAISON Problem Notes None recorded. Medical Equipment None Reported. [...] Not Available No t Available Afluria Qd 2019- (36 mos up)(PF)60 mcg (15 mcg x4)/0.5 mL IM syringe ADM 0.5ML IM UTD 10/29 completed Not Available Not Available Not Available Vitals Date Recorded Heart rate Respiratory rate Provider N raghavendra and Address Organization Details Last Updated DateTime 10/07/2023 86 /min 15 /min Vinnie Martinez MD [address], [facility] [address], [place], [address], [place] [employer] [facility] 10/07/2023 15:25:40 Date Recorded Body height Body mass index (BMI) Body weight Body temperature Heart rate Oxygen saturation Oxygen saturation in Arterial blood by Pulse oximetry Systolic blood pressure Diastolic blood pressure Provider Name and Address Organization Details Last Updated DateTime 4 154.94 cm 59.3 kg/m2 129064 g 97.7 [degF] 86 /min 97 % 97 % 124 mm[Hg] 68 mm[Hg] Hanh Bowser MA [employer] [facility] 4 15:07:44 Date Recorded Body temperature Heart rate Respiratory rate Provider Name and Address Organization Details Last Updated DateTime 03/15/2024 97.3 [degF] 90 /min 15 /min Vinnie Martinez MD [address] [facility], [facility] [address], [place], [address], [employer] 03/15/2024 13:30:13 Date Recorded Body height Body mass index (BMI) Body weight Oxygen saturation Oxygen saturation in Arterial blood by Pulse oximetry Heart rate Systolic blood pressure Diastolic blood pressure Provider Name and Address Organization Details Last Updated DateTime 4 154.94 cm 59 kg/m2 937654. 82 g 96 % 96 % 90 /min 122 mm[Hg] 70 mm[Hg] Costa Lemus CMA [employer] [facility] 4 12:42:12 Date Recorded Body mass index (BMI) Heart rate Body height Oxygen saturation Oxygen saturation in Arterial blood by Pulse oximetry Heart rate Respiratory rate Body temperature Body weight Systolic blood pressure Diastolic blood pressure Provider Name and Address Organization Details Last Updated DateTime 2 61.6 kg/m2 93 /min 154.94 cm 97 % 97 % 93 /min 15 /min 98.3 [degF] 448136. 11 g 140 mm[Hg] 90 mm[Hg] Not Available [facility] 3 06:00:04 Date Recorded Body mass index (BMI) Body height Oxygen saturation Oxygen saturation in Arterial blood by Pulse oximetry Heart rate Body temperature Body weight Systolic blood pressure Diastolic blood pressure Provider Name and Address Organization Details Last Updated DateTime 2 60.6 kg/m2 154.94 cm 97 % 97 % 86 /min 96.3 [degF] 605130. 43 g 130 mm[Hg] 74 mm[Hg] Not Available [facility] 3 06:00:05 Date Recorded Heart rate Respiratory rate Provider Jon raghavendra and Address Organization Details Last Updated DateTime 04/28/2023 93 /min 15 /min Vinnie Martinez MD [address], [address], [employer] 04/28/2023 11:19:34 Date Recorded Body height Body mass index (BMI) Body weight Body temperature Heart rate Oxygen saturation Oxygen saturation in Arterial blood by Pulse oximetry Systolic blood pressure Diastolic blood pressure Provider Name and Address Organization Details Last Updated DateTime 3 154.94 cm 59 kg/m2 823793. 82 g 98.4 [degF] 93 /min 96 % 96 % 126 mm[Hg] 72 mm[Hg] Hanh Bowser MA [employer] 3 11:00:29 Social History Question Answer Notes LastModified by Organizat ion Details LastModified Time Tobacco Smoking Status Former Smoker quit in 2015 Not Available [facility] 11/19/2022 05:54:49 In The 14 Days Before Symptom Onset, Have You Had Close Contact With A Laboratory-confir med COVID-19 While That Case Was Ill? No [id number] Information not available 11/19/2022 In The 14 Days Before Symptom Onset, Have You Had Close Contact With A Person Who Is Under Investigation For COVID-19 While That Person Was Ill? No [id number] Information not available 11/19/2022 What Type Of Diet Are You Following? REGULAR Information not available 10/07/2023 Do You Have An Electrostatic Air Filter? No Information not available 04/28/2023 Do You [...] 04/28/2023 Have You Recently Traveled Abroad? No [id number] Information not available 11/19/2022 Do You Have Any Dietary Restrictions? No Information not available 10/07/2023 Sex: Unknown Functional Status Question Answer Note LastModified by Organizat ion Details LastModified Time Have you been exposed to chemicals or toxins? Yes Information not available 04/28/2023 What is your exercise level? Occasional Information not available 10/07/2023 Mental Status None recorded. Family History Relationship Description Onset Age of this Age Resolved Age Notes LastModified by Organization Details LastModified Time Sister Family history of malignant neoplasm [id number] Not available 11/19/2022 05:57:05 Sister Chronic obstructive pulmonary disease [id number] Not available 11/19/2022 05:57:05 Father Myocardial infarction [id number] Not available 11/19/2022 05:57:06 Son Asthma [id number] Not available 11/19/2022 05:57:06 Medical History No medical history recorded. Gynecological HistoryNo gynecological history recorded. Obstetrics History GPAL:G 0 P 0 0 0 0 Immunizations Vaccine Type Date Status Note Provider Nam e and Address Organization Details Recorded Time COVID-19, mRNA, LNP-S, PF, 30 mcg/0.3 mL dose 2 completed Not Available [facility] 03/30/2023 16:13:27 COVID-19, mRNA, LNP-S, PF, 30 mcg/0.3 mL dose 1 completed Not Available [facility] 03/30/2023 16:13:27 COVID-19, mRNA, LNP-S, PF, 30 mcg/0.3 mL dose 1 completed Not Available [facility] 03/30/2023 16:13:27 Influenza, split virus, quadrivalent, preservative 0 completed Not Available [facility] 03/30/2023 16:13:27 Past Encounters Encounter ID Performer Location Encounter Start Date Encounter Closed Date Diagnosis/Indication Diagnosis SNOMED-CT Code Diagnosis ICD10 Code Diagnosis Note [id number] [facility] [place] [address] 03/26/2022 00:00:00 03/26/2022 11:24:25 [id number] MD [place] [facility] [place] [id number] 04/28/2022 00:00:00 04/28/2022 15:42:25 [id number] [facility] [address] 04/28/2023 10:19:01 04/28/2023 15:20:45 Solitary nodule of lung 624844470 R91.1 Asthma-chr onic obstructive pulmonary disease overlap syndrome 0885055733 1896458 J44.9 Obstructiv e sleep apnea syndrome 04519680 G47.33 [id number] Vinnie Martinez [facility] [id number] 10/07/2023 14:43:48 10/08/2023 08:14:36 Asthma-chronic obstructive pulmonary disease overlap syndrome 7338359367 3890682 J44.9 Solitary n odule of lung 691363536 R91.1 Obstructiv e sleep apnea syndrome 49444847 G47.33 [id number] MD JHONATAN ShaikhZen Pulmon[address] [address] 03/15/2024 11:44:04 03/16/2024 08:17:58 Asthma-chronic obstructive pulmonary disease overlap syndrome 0530302836 6406980 J44.9 Solitary n odule of lung 797009191 R91.1 Obstructiv e sleep apnea syndrome 67232062 G47.33 Health Concerns Section Related Observation LastModified by Organization Detai ls LastModified Time None Recorded Concern Status LastModified by Organization Details LastModified Time None Recorded Advance Directives Directive None Recorded Payers Encounter Date Sequence Insurance Name Policy Number Policy Hill Covered Member ID Hill Member ID Guarantor Name 04/28/2023 1 [facility] (MEDICARE REPLACEMENT/A DVANTAGE - PPO) [id number] Laurel Valdes [id number] Laurel Valdes 10/07/2023 1 [facility] (MEDICARE REPLACEMENT/A DVANTAGE - PPO) [id number] Laurelneida Valdes [id number] Laurel Valdes 03/15/2024 1 [facility] (MEDICARE REPLACEMENT/A DVANTAGE - PPO) [id number] Laurel Sam Valdes [id number] Laurel Valdes Notes Date Note Type Note [...] up stairs, heatAlleviating factors: restModified [employer] (mMRC) Dyspnea Scale - Grade 2Grade 0 [...] noDysphagia: noEdema: yesEnvironmental exposures:Nicotine smoke: 1 ppd 0483-8374 = 38 pack yearsPaint: noDye: noDust mites: [...] slight chance of dozing. Vinnie Martinez MD [address] [place] [address], [address], [facility] 04/28/2023 11:19:45 10/07/2023 text/html Primary care/Ref erring provider: Feliciano Griffin MD; Yemi Pandya PA-C CC: Patient is here for surgical clearance. She has severe . Her aortic valve replacement is scheduled for 10/20/23. Fax number is [phone].Patient is here to go over her ACO management.Initial development of shortness of breath: 2014Duration of shortness of breath: 9 yearsCondition of shortness of breath: stableTiming of shortness of breath: noneFrequency: up to 8 times a dayLimits activities: yesAggravating factors: walking, going up stairs, heatAlleviating factors: restModified [employer] (mMRC) Dyspnea Scale - Grade 2Grade 0 [...] noDysphagia: noEdema: yesEnvironmental exposures:Nicotine smoke: 1 ppd 6723-7232 = 38 pack yearsPaint: noDye: noDust mites: [...] slight chance of dozing. Vinnie Martinez MD [address] [place] [address], [address], [facility] 10/07/2023 15:31:10 03/15/2024 text/html Primary care/Ref erring provider: Feliciano Griffin MD; FRANCIS Jiménez-CPatient is here to go over her ACO management.Initial development of shortness of breath: 2014Duration of shortness of breath: 10 yearsCondition of shortness of breath: stableTiming of shortness of breath: noneFrequency: up to 8 times a dayLimits activities: yesAggravating factors: walking, going up stairs, heatAlleviating factors: restModified [employer] (mMRC) Dyspnea Scale - Grade 2Grade 0 [...] noDysphagia: noEdema: yesEnvironmental exposures:Nicotine smoke: 1 ppd 9401-6351 = 38 pack yearsPaint: noDye: noDust mites: [...] chance of dozing. Vinnie Martinez MD [address] [facility], [place] [address], [place], [address], [place] [facility] [employer] 03/15/2024 13:30:42 OBGyn Episode No OBEpisode recorded.
--- OUTSIDE RECORDS SUMMARY | 2025-03-01 07:05 | XMS_ITS ---
Author Organization [facility] Office Address [address] [place] [address] Care Team Providers Care Scribing Machine Operator Name Role Phone Everette Griffin Unavailable [phone] Problems Problem Type SNOMED Code ICD Code Onset Dates Problem Status W/U Status Risk Notes Problem Diabetic renal disease (559001496) Type 2 diabetes mellitus with diabetic chronic kidney disease (E11.22) Active confirmed Problem Essential hypertension (11981841) Essential hypertension (I10) Active confirmed Problem Aortic valve disorde r (3583035) 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) Active confirmed Problem Hypothyroidism (59481034) Hypothyroidism, unspecified (E03.9) Active confirmed Problem Chronic obstructive pulmonary disease (04023125) Chronic obstructive pulmonary disease, unspecified (J44.9) Active confirmed Problem Obesity (927603680) Obesity, uns pecified (E66.9) Active confirmed Problem Edema (67436164) Edema, unspecif ied (R60.9) Active confirmed Problem Renal osteodystrophy (08016662) Renal osteodystrophy (N25.0) Active confirmed Problem Secondary hyperparathyroidism of renal origin (74111712) Secondary hyperparathyroidism of renal origin (N25.81) Active confirmed Encounters Encounter Location Date Provider Diagnosis [place] [facility] [address]43 [facility] [address] [place] [address] 10/12/2024 Everette Griffin Chronic kidney disea se, stage 3 unspecified N18.30 ; Type 2 diabetes mellitus with diabetic chronic kidney disease E11.22 ; Proteinuria, unspecified R80.9 ; Essential hypertension I10 ; Renal osteodystrophy N25.0 ; Secondary hyperparathyroidism of renal origin N25.81 ; Acute metabolic acidosis E87.21 and Obesity, unspecified E66.9 Assessments Encounter Date Diagnosis (ICD Code) Assessment Notes Treatment Notes Treatment Clinical Notes Section Notes 10/12/2024 Chronic kidney disea se, stage 3 unspecified (ICD-10 - N18.30) 10/12/2024 Type 2 diabetes mellitus with diabetic chronic kidney disease (ICD-10 - E11.22) 10/12/2024 Proteinuria, unspecified (ICD-10 - R80.9) 10/12/2024 Essential hypertensi on (ICD-10 - I10) 10/12/2024 Renal osteodystrophy (ICD-10 - N25.0) 10/12/2024 Secondary hyperparathyroidism of renal origin (ICD-10 - N25.81) 10/12/2024 Acute metabolic acidosis (ICD-10 - E87.21) 10/12/2024 Obesity, unspecified (ICD-10 - E66.9) Plan Of Treatment Next Appt Details Provider Name:Everette Elias , 03/29/2025 02:15:00 PM, 2043 [facility] [address], [place], [facility], Progress Notes * DOMINIC MARQUEZOB:[birth year] (60 yo F)Acc No.[id number]:10/12/2024 Progress Notes Patient: CONRADO COLINDRES Provider: Savanna BENAVIDES MD, F.A.C.P, F.A.S.N. :1965 A ge:59 Y S ex:Female Date:10/12/2024 Address:[address] [place] [address] Subjective: * Chief Complaints: * * Medical History: Objective: * Vitals: Assessment: * Assessment: 1. C hronic kidney disease, stage 3 unspecified - N18.30 2 . T ype 2 diabetes mellitus with diabetic chronic kidney disease - E11.22 3 . P roteinuria, unspecified - R80.9 4 . E ssential hypertension - I10 5 . R enal osteodystrophy - N25.0 6 . S econdary hyperparathyroidism of renal origin - N25.81 7 . A cute metabolic acidosis - E87.21 8 . O besity, unspecified - E66.9 Plan: * Treatment: * Billing Information: * Visit Code: 23679 Office Visit, New Pt., Level 5. * Procedure Codes: * Electronic signature of Jillian Griffin MD on 03/01/2025 at 07:04 AM CDT Sign off status: Pending * Provider: Savanna BENAVIDES MD, F.A.C.P, F.A.S.N. Date: 0 10/12/2024 Generated for Printing/Faxing/eTransmitting on: 0 03/01/2025 07:04 AM CDT
--- OUTSIDE RECORDS SUMMARY | 2025-03-01 07:05 | XMS_ITS ---
Author Organization [facility] Address [address] [address] Care Team Providers Care Label Stitcher Name Role Phone Elias Everette Unavailable [phone] REASON FOR VISIT US AND LABS AT [facility] Problems Problem Type SNOMED Code ICD Code Onset Dates Problem Status W/U Status Risk Notes Problem Chronic kidney disease stage 2 (002593483) Chronic kidney disease, stage 2 (mild) (N18.2) Active confirmed Problem Overactive bladder (574669932) Overactive bladder (N32.81) Active confirmed Problem Calculus of kidney (74066526) Calculus of kidney (N20.0) Active confirmed Encounters Encounter Location Date Provider Diagnosis [place] [facility] 2043 [facility] [address] [place] [address] 02/22/2025 Everette Griffin Chronic kidney disea se, stage 2 (mild) N18.2 ; Type 2 diabetes mellitus with diabetic chronic kidney disease E11.22 ; Essential hypertension I10 ; 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 ; Hypothyroidism, unspecified E03.9 ; Chronic obstructive pulmonary disease, unspecified J44.9 ; Obesity, unspecified E66.9 ; Edema, unspecified R60.9 ; Renal osteodystrophy N25.0 ; Secondary hyperparathyroidism of renal origin N25.81 ; Overactive bladder N32.81 and Calculus of kidney N20.0 Assessments Encounter Date Diagnosis (ICD Code) Assessment Notes Treatment Notes Treatment Clinical Notes Section Notes 02/22/2025 Chronic kidney disea se, stage 2 (mild) (ICD-10 - N18.2) 02/22/2025 Type 2 diabetes mellitus with diabetic chronic kidney disease (ICD-10 - E11.22) 02/22/2025 Essential hypertensi on (ICD-10 - I10) 02/22/2025 Other nonrheumatic aortic valve disorders (ICD-10 - I35.8) 02/22/2025 Hypothyroidism, unspecified (ICD-10 - E03.9) 02/22/2025 Chronic obstructive pulmonary disease, unspecified (ICD-10 - J44.9) 02/22/2025 Obesity, unspecified (ICD-10 - E66.9) 02/22/2025 Edema, unspecified (ICD-10 - R60.9) 02/22/2025 Renal osteodystrophy (ICD-10 - N25.0) 02/22/2025 Secondary hyperparathyroidism of renal origin (ICD-10 - N25.81) 02/22/2025 Overactive bladder (ICD-10 - N32.81) 02/22/2025 Calculus of kidney (ICD-10 - N20.0) Plan Of Treatment Next Appt Details Provider Name:Everette Elias , 03/29/2025 02:15:00 PM, 2043 [facility], [facility] [address], [place], [facility] [place] [place], Progress Notes * DOMINIC MARQUEZOB:[birth year] (60 yo F)Acc No.[id number]:02/22/2025 Progress Notes Patient: CONRADO COLINDRES Provider: Savanna BENAVIDES MD, F.A.C.P, F.A.S.N. :1965 A ge:60 Y S ex:Female Date:02/22/2025 Address:[address] [place] [address] Subjective: * Chief Complaints: * 1 . US AND LABS AT [facility]. * Medical History: Objective: * Vitals: Assessment: * Assessment: 1. C hronic kidney disease, stage 2 (mild) - N18.2 (Primary) 2 . T ype 2 diabetes mellitus with diabetic chronic kidney disease - E11.22 3 . E ssential hypertension - I10 4 . O ther nonrheumatic aortic valve disorders - I35.8 & #160; 5 . H ypothyroidism, unspecified - E03.9 6 . C hronic obstructive pulmonary disease, unspecified - J44.9 7 . O besity, unspecified - E66.9 8 . E zoraida, unspecified - R60.9 9 . R enal osteodystrophy - N25.0 1 0. S econdary hyperparathyroidism of renal origin - N25.81 1 1.?Overactive bladder - N32.81 1 2. C alculus of kidney - N20.0 Plan: * Treatment: * Billing Information: * Visit Code: 28597 Office Visit, Est Pt., Level 4. * Procedure Codes: * Electronic signature of Jillian Griffin MD on 03/01/2025 at 07:05 AM CDT Sign off status: Pending * Provider: Savanna BENAVIDES MD, F.A.C.P, F.A.S.N. Date: 0 02/22/2025 Generated for Printing/Faxing/eTransmitting on: 03/01/2025 07:05 AM CDT
--- OUTSIDE RECORDS SUMMARY | 2025-03-01 07:06 | XMS_ITS ---
Author Organization [facility] Address [address] [place] [address] Care Team Providers Care Assistant Center Director Name Role Phone Everette Griffin Unavailable [phone] Encounters Encounter Location Date Provider Diagnosis [place] [facility] 2043 [facility] [address] [place] [address] 10/26/2024 Everette Griffin Chronic kidney disease, stage 3 unspecified N18.30 ; Type 2 diabetes mellitus with diabetic chronic kidney disease E11.22 ; Essential hypertension I10 ; Hypothyroidism, unspecified E03.9 ; 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 ; Obesity, unspecified E66.9 ; Edema, unspecified R60.9 and Chronic obstructive pulmonary disease, unspecified J44.9 Assessments Encounter Date Diagnosis (ICD Code) Assessment [...] obstructive pulmonary disease, unspecified (ICD-10 - J44.9) Plan Of Treatment Next Appt Details Provider Name:Everette Griffin , 03/29/2025 02:15:00 PM, 2043 [facility], [address], [place], [address], Progress Notes * DOMINIC MARQUEZOB:[birth year] (60 yo F)Acc No.[id number]:10/26/2024 Progress Notes Patient: CONRADO COLINDRES Provider: Savanna BENAVIDES MD, Ritika.P, F.A.S.N. :1965 A ge:59 Y S ex:Female Date:10/26/2024 Address:[address] [place] [address] Subjective: * Chief Complaints: * * Medical History: Objective: * Vitals: Assessment: * Assessment: 1. C hronic kidney disease, stage 3 unspecified - N18.30 (Primary) 2 . T ype 2 diabetes mellitus with diabetic chronic kidney disease - E11.22 3 . E ssential hypertension - I10 4 . H ypothyroidism, unspecified - E03.9 5 . O ther nonrheumatic aortic valve disorders - I35.8 6 . O besity, unspecified - E66.9 7 . E zoraida, unspecified - R60.9 8 . C hronic obstructive pulmonary disease, unspecified - J44.9 Plan: * Treatment: * Billing Information: * Visit Code: 58147 Office Visit, Est Pt., Level 4. * Procedure Codes: * Electronic signature of Jillian Griffin MD on 03/01/2025 at 07:05 AM CDT Sign off status: Pending * Provider: Savanna BENAVIDES MD, Geno.Rubin.Karri.P, F.A.S.N. Date: 0 10/26/2024 Generated for Printing/Faxing/eTransmitting on: 0 03/01/2025 07:05 AM CDT
--- OUTSIDE RECORDS SUMMARY | 2025-03-01 07:06 | XMS_ITS | Patient Health Record ---
Author Organization [facility] Address 1400 [facility] [address] [facility] [address] [place] [id number] Care Team Providers Care Cesspool Cleaner Name Role Phone Everette Griffin Unavailable [phone] Reason For Referral No Information Medications Medication SIG (Take, Route, Frequency, Duration) Notes Start Date End Date Status Urocit-K 10 10 MEQ (1080 MG) 2 tablet with meals Orally twice a day for 90 days 02/22/2025 Active Problems Problem Type SNOMED Code ICD Code Onset Dates Problem Status W/U Status Risk Notes Problem Hypothyroidism (76062170) Hypothyroidism, unspecified (E03.9) Active confirmed Problem Diabetic renal disease (474214021) Type 2 diabetes mellitus with diabetic chronic kidney disease (E11.22) Active confirmed Problem Obesity (218600695) Obesity, uns pecified (E66.9) Active confirmed Problem Aortic valve disorde r (9424321) 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) Active confirmed Problem Chronic obstructive pulmonary disease (38675022) Chronic obstructive pulmonary disease, unspecified (J44.9) Active confirmed Problem Chronic kidney disease stage 2 (437720723) Chronic kidney disease, stage 2 (mild) (N18.2) Active confirmed Problem Calculus of kidney (47428576) Calculus of kidney (N20.0) Active confirmed Problem Renal osteodystrophy (80431254) Renal osteodystrophy (N25.0) Active confirmed Problem Secondary hyperparathyroidism of renal origin (48388619) Secondary hyperparathyroidism of renal origin (N25.81) Active confirmed Problem Overactive bladder (368573458) Overactive bladder (N32.81) Active confirmed Problem Edema (26000328) Edema, unspecif ied (R60.9) Active confirmed Problem Essential hypertension (52216373) Essential hypertension (I10) Active confirmed Encounters Encounter Location Date Provider Diagnosis [place] [facility] 2043 [facility] [address] [place] [address] 10/12/2024 Everette Griffin Chronic kidney disea se, stage 3 unspecified N18.30 ; Type 2 diabetes mellitus with diabetic chronic kidney disease E11.22 ; Proteinuria, unspecified R80.9 ; Essential hypertension I10 ; Renal osteodystrophy N25.0 ; Secondary hyperparathyroidism of renal origin N25.81 ; Acute metabolic acidosis E87.21 and Obesity, unspecified E66.9 [facility] [address] [place] [address] 10/26/2024 Everette Griffin Chronic kidney disea se, stage 3 unspecified N18.30 ; Type 2 diabetes mellitus with diabetic chronic kidney disease E11.22 ; Essential hypertension I10 ; Hypothyroidism, unspecified E03.9 ; 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 ; Obesity, unspecified E66.9 ; Edema, unspecified R60.9 and Chronic obstructive pulmonary disease, unspecified J44.9 [facility] [address] [place] [address] 02/22/2025 Everette Griffin Chronic kidney disea se, [...] bladder N32.81 and Calculus of kidney N20.0 [facility] [address] [place] [address] 02/22/2025 Everette Griffin [facility] [address] [place] [address] 02/22/2025 Everette Griffin [facility] [facility] [address] [place] [address] 02/22/2025 Everette Griffin Assessments Encounter Date Diagnosis (ICD Code) Assessment Notes Treatment Notes Treatment Clinical Notes Section Notes 10/12/2024 Chronic kidney disea se, stage 3 unspecified (ICD-10 - N18.30) 10/26/2024 Chronic kidney disea se, stage 3 unspecified (ICD-10 - N18.30) 02/22/2025 Type 2 diabetes mellitus with diabetic chronic kidney disease (ICD-10 - E11.22) 02/22/2025 Chronic kidney disea se, stage 2 (mild) (ICD-10 - N18.2) 02/22/2025 Essential hypertensi on (ICD-10 - I10) 10/26/2024 Type 2 diabetes mellitus with diabetic chronic kidney disease (ICD-10 - E11.22) 10/12/2024 Type 2 diabetes mellitus with diabetic chronic kidney disease (ICD-10 - E11.22) 10/12/2024 Proteinuria, unspecified (ICD-10 - R80.9) 10/26/2024 Essential hypertensi on (ICD-10 - I10) 02/22/2025 Other nonrheumatic aortic valve disorders (ICD-10 - I35.8) 10/12/2024 Essential hypertensi on (ICD-10 - I10) 02/22/2025 Hypothyroidism, unspecified (ICD-10 - E03.9) 10/26/2024 Hypothyroidism, unspecified (ICD-10 - E03.9) 10/26/2024 Other nonrheumatic aortic valve disorders (ICD-10 - I35.8) 10/12/2024 Renal osteodystrophy (ICD-10 - N25.0) 02/22/2025 Chronic obstructive pulmonary disease, unspecified (ICD-10 - J44.9) 02/22/2025 Obesity, unspecified (ICD-10 - E66.9) 10/12/2024 Secondary hyperparathyroidism of renal origin (ICD-10 - N25.81) 10/26/2024 Obesity, unspecified (ICD-10 - E66.9) 10/26/2024 Edema, unspecified (ICD-10 - R60.9) 10/12/2024 Acute metabolic acidosis (ICD-10 - E87.21) 02/22/2025 Edema, unspecified (ICD-10 - R60.9) 02/22/2025 Renal osteodystrophy (ICD-10 - N25.0) 10/12/2024 Obesity, unspecified (ICD-10 - E66.9) 10/26/2024 Chronic obstructive pulmonary disease, unspecified (ICD-10 - J44.9) 02/22/2025 Secondary hyperparathyroidism of renal origin (ICD-10 - N25.81) 02/22/2025 Overactive bladder (ICD-10 - N32.81) 02/22/2025 Calculus of kidney (ICD-10 - N20.0) Plan Of Treatment Next Appt Details Provider Name:Everette Griffin , 03/29/2025 02:15:00 PM, [facility], [facility] [address], [place], [address],
[2025-03-01 08:06] LABS: Add Urine Microscopic? YES; Appearance Urine Cloudy (Clear); Bacteria Urine 3+ /hpf; Bilirubin Urine Negative (Negative); Blood Urine 1+ (Negative); Color Urine Yellow (Yellow); Glucose Urine UA Negative (Negative); Ketones Urine Negative (Negative); Leukocyte Esterase Ur 3+ LEU/UL (Negative); Nitrate Urine Positive (Negative); Non Pathogenic Casts 0-2; Protein Urine Trace mg/dL (Negative); RBC Urine 0-2 /hpf (0-2); Squamous Epithelial Cell Urine Occasional /hpf (Few); WBC Urine >100 /hpf (0-3); pH Urine 7.5 (5.0-9.0)
[2025-03-01 08:07] LABS: Hemoglobin A1C 4.9 % (<5.7)
[2025-03-01 08:34] LABS: Alanine Aminotransferase 23 U/L (6-35); Albumin Level 4.3 g/dL (3.5-5.1); Alkaline Phosphatase 86 U/L (38-126); Anion Gap 8 mmol/L (4-12); Aspartate Amino Transferase 30 U/L (14-36); Bilirubin,Total 0.5 mg/dL (0.2-1.3); Blood Urea Nitrogen 13 mg/dL (7-17); Carbon Dioxide 25 mmol/L (22-30); Chloride 108 mmol/L (98-107); Estimated Glomerular Filt Rate > 60; Glucose 87 mg/dL (65-110); Potassium 4.3 mmol/L (3.4-5.0); Sodium 141 mmol/L (137-145); Total Protein 7.2 g/dL (6.3-8.2); Uric Acid 7.1 mg/dL (2.5-7.5)
[2025-03-01 09:45] LABS: Creatinine Urine 81.9 mg/dL
[2025-03-01 09:55] LABS: Microalbumin Urine Random 63.1 mg/L (0-16.7)
[2025-03-01 09:55] LABS: Vitamin D 25 Hydroxy 67.8 ng/mL
[2025-03-01 13:23] LABS: Parathyroid Intact 86.3 pg/mL (14.5-75.2)
== END 2025-03-01 07:01 | disposition home or self-care (01) ==
LOC: ANHLAB 07:03
PROVIDERS: PCP Internal Medicine Gastroenterology; Visit Provider Specialist
DX: I12.9 Hypertensive chronic kidney disease with stage 1 through stage 4 chronic kidney disease, or unspecified chronic kidney disease (principal); N18.2 Chronic kidney disease, stage 2 (mild); D64.9 Anemia, unspecified; R60.9 Edema, unspecified; E55.9 Vitamin D deficiency, unspecified; R35.0 Frequency of micturition; R73.09 Other abnormal glucose; E21.3 Hyperparathyroidism, unspecified; R94.5 Abnormal results of liver function studies
CPT/HCPCS: 36415; 80053; 81001; 82043; 82306; 83036; 83970; 84443; 84550; 87077; 87086; 87186

== ENCOUNTER 2025-03-10 09:17 | Outpatient (CLI) | payer MEDICARE, SELFPAY ==
--- NOTE | 2025-03-10 14:35 | WPDPFTINT ---
PFT Procedure Performed PFT Procedure Performed Spirometry with Pre/Post Bronchodilator Plethysmography (Lung Vol) Diffusing Cap (DLCO) Flow Vol Loop PFT Interpretation This is a pulmonary function test with pre and post-bronchodilator spirometry, plethysmography and diffusing capacity. The test was performed and results interpreted in accordance with the 2019 and 2005 ATS/ERS Task Force guidelines respectively using the Global Lung Function Initiative-2012 reference equations. Patient demonstrated good effort and cooperation. Reproducibility criteria were met. The quality of the pre bronchodilator spirometry maneuver was Grade A and post bronchodilator spirometry maneuver was Grade A. Findings: Spirometry: There is decreased maximal expiratory airflow at all lung volumes. The contour the inspiratory flow tracing is normal. The pre bronchodilator FVC is 1.85 L, 64% predicted. The pre bronchodilator FEV1 is 1.21 L, 53% predicted. The pre bronchodilator FEV1: FVC ratio 66%. The post bronchodilator FVC is 1.96 L, representing a 6% increase. The post bronchodilator FEV1 is 1.45 L, representing a 19% increase. The post bronchodilator FEV1: FVC ratio is 74%. Plethysmography: The total lung capacity is 4.15 L, 88% predicted. The functional residual capacity is 2.65 L, 100% predicted. The residual volume is 2.27 L, 118% predicted. The residual volume: Total lung capacity ratio is 55%. Diffusing capacity: The diffusing capacity unadjusted for hemoglobin and carboxyhemoglobin 16.8, 82% predicted. The diffusing capacity adjusted for alveolar volume is 5.47, 121% predicted. Impression: There is a moderately severe obstructive abnormality. There is significant improvement after inhaling a single dose of albuterol. The increase in residual volume to total lung volume ratio is consistent with hyperinflation from an obstructive abnormality. The diffusing capacity is normal. There are no prior studies for comparison
== END 2025-03-10 09:18 | disposition home or self-care (01) ==
PROVIDERS: PCP Internal Medicine Gastroenterology; Visit Provider Internal Medicine Pulmonary Disease
DX: R94.2 Abnormal results of pulmonary function studies (principal); J44.9 Chronic obstructive pulmonary disease, unspecified
CPT/HCPCS: 94060; 94726; 94729

== ENCOUNTER 2025-04-21 11:03 | Emergency (ER) | payer MEDICARE, SELFPAY ==
--- NOTE | ~2025-04-21 | XR_ITS ---
EXAMINATION: XR ankle RT min 3V, XR foot RT min 3V DATE: 04/21/2025 13:09 INDICATION: Right foot and ankle swelling TECHNIQUE: 1. Anteroposterior, mortise, additional oblique and lateral view of the right ankle were obtained. 2. Dorsoplantar, two oblique and lateral views of the right foot were obtained. COMPARISON: None. FINDINGS: Alignment of the right foot and ankle is normal. No fracture or osteochondral lesion. Joint spaces ar e well maintained. Small Achilles calcaneal spur and moderate-sized plantar calcaneal spur. Diffuse s oft tissue swelling with subcutaneous edema about the visualized distal lower leg about the right ank le and extending over the dorsum of the foot. No ankle joint effusion. IMPRESSION: 1. Diffuse soft tissue swelling with subcutaneous air about the visualized lower leg, ankle and over the dorsum of the foot. No acute osseous abnormality. 2. Achilles and plantar calcaneal spurs. Reviewed, dictated and finalized at location A. IMPRESSION: 1. Diffuse soft tissue swelling with subcutaneous air about the visualized lowe r leg, ankle and over the dorsum of the foot. No acute osseous abnormality. 2. Achilles and plantar calcaneal spurs.
--- NOTE | ~2025-04-21 | US_ITS ---
EXAMINATION:US venous doppler LE RT INDICATION:Right lower extremity swelling TECHNIQUE: Multiple grayscale, color flow and Doppler images of the right lower extremity deep venous systems were obtained and reviewed. COMPARISON:No prior studies for comparison. FINDINGS: The common femoral, superficial femoral and popliteal veins demonstrate normal respiratory variation, augmentation and compressibility. Color flow is also seen within the posterior tibial, pe roneal, greater saphenous and profunda veins. IMPRESSION: 1: No lower extremity deep venous thrombosis. Reviewed, dictated and finalized at location B.
--- OUTSIDE RECORDS SUMMARY | 2025-04-21 11:06 | XMS_ITS ---
Author Organization [facility] Address [address] [place] [address] Care Team Providers Care Trim Mechanic Name Role Phone Elias Everette Unavailable [phone] Medications Medication SIG (Take, Route, Frequency, Duration) Notes Start Date End Date Status Urocit-K 10 10 MEQ (1080 MG) 2 tablet with meals Orally twice a day; Duration: 90 days 02/22/2025 Active Encounters Encounter Location Date Provider Diagnosis [place] [facility] 2043 [facility] [address] [place] [address] 04/05/2025 Everette Griffin Chronic kidney disea se, stage [...] Treatment Notes Treatment Clinical Notes Section Notes 04/05/2025 Chronic kidney disea se, stage 2 (mild) (ICD-10 - N18.2) 04/05/2025 Type 2 diabetes mellitus with diabetic chronic kidney disease (ICD-10 - E11.22) 04/05/2025 Essential hypertensi on (ICD-10 - I10) 04/05/2025 Other nonrheumatic aortic valve disorders (ICD-10 - I35.8) 04/05/2025 Hypothyroidism, unspecified (ICD-10 - E03.9) 04/05/2025 Chronic obstructive pulmonary disease, unspecified (ICD-10 - J44.9) 04/05/2025 Obesity, unspecified (ICD-10 - E66.9) 04/05/2025 Edema, unspecified (ICD-10 - R60.9) 04/05/2025 Renal osteodystrophy (ICD-10 - N25.0) 04/05/2025 Secondary hyperparathyroidism of renal origin (ICD-10 - N25.81) 04/05/2025 Overactive bladder (ICD-10 - N32.81) 04/05/2025 Calculus of kidney (ICD-10 - N20.0) Plan Of Treatment Next Appt Details Provider Name:Everette Griffin , 09/27/2025 02:00:00 PM, 2043 [facility], [facility] 15, [place], [place], [facility], Progress Notes * DOMINIC MARQUEZOB:[birth year] (60 yo F)Acc No.[id number]:04/05/2025 Progress Notes Patient: CONRADO COLINDRES Provider: Savanna BENAVIDES MD, F.A.C.P, F.A.S.N. :1965 A ge:60 Y S ex:Female Date:04/05/2025 Address:[address] [place] [address] Subjective: * Chief Complaints: * * Medical History: * Medications: T aking Urocit-K 10 10 MEQ (1080 MG) Tablet Extended Release 2 tablet with meals Orally twice a day Objective: * Vitals: Assessment: * Assessment: 1. [...] Treatment: * Billing Information: * Visit Code: 69344 Office Visit, Est Pt., Level 4. * Procedure Codes: * Electronic signature of Jillian Griffin MD on 04/21/2025 at 11:05 AM CDT Sign off status: Pending * Provider: Savanna BENAVIDES MD, F.A.C.P, F.A.S.N. Date: 0 04/05/2025 Generated for Printing/Faxing/eTransmitting on: 0 04/21/2025 11:05 AM CDT
--- OUTSIDE RECORDS SUMMARY | 2025-04-21 11:06 | XMS_ITS ---
Author Organization [facility] Address [address] [address] Care Team Providers Care Procurement Inspector Name Role Phone Elias Everette Unavailable [phone] REASON FOR VISIT US AND LABS AT [facility] Problems Problem Type SNOMED Code ICD Code Onset Dates Problem Status W/U Status Risk Notes Problem Chronic kidney disease stage 2 (407631164) Chronic kidney disease, stage 2 (mild) (N18.2) Active confirmed Problem Overactive bladder (545045290) Overactive bladder (N32.81) Active confirmed Problem Calculus of kidney (49997552) Calculus of kidney (N20.0) Active confirmed Encounters Encounter Location Date Provider Diagnosis [place] [facility] 2043 [facility] [address] [place] [address] 02/22/2025 Everette Griffin Chronic kidney disea se, [...] Next Appt Details Provider Name:Everette Elias , 09/27/2025 02:00:00 PM, 2043 [facility], [facility] [address], [place], [facility], Progress Notes * DOMINIC MARQUEZOB:[birth year] (60 yo F)Acc No.[id number]:02/22/2025 Progress Notes Patient: CONRADO COLINDRES Provider: Savanna BENAVIDES MD, F.A.C.P, F.A.S.N. :1965 A ge:60 Y S ex:Female Date:02/22/2025 Address:[address] [place] [address] Subjective: * Chief Complaints: * 1 . US AND LABS AT [facility]. * Medical History: Objective: * Vitals: Assessment: [...] Treatment: * Billing Information: * Visit Code: 14930 Office Visit, Est Pt., Level 4. * Procedure Codes: * Electronic signature of Jillian Griffin MD on 04/21/2025 at 11:05 AM CDT Sign off status: Pending * Provider: Savanna BENAVIDES MD, F.A.C.P, F.A.S.N. Date: 0 02/22/2025 Generated for Printing/Faxing/eTransmitting on: 0 04/21/2025 11:05 AM CDT
--- OUTSIDE RECORDS SUMMARY | 2025-04-21 11:06 | XMS_ITS | Patient Health Record ---
Author Organization [facility] Office Address [address] [facility] [address] [facility] [address] [place] [address] Care Team Providers Care Oil Tanker Captain Name Role Phone Everette Griffin Unavailable [phone] Reason For Referral No Information Medications Medication SIG (Take, Route, Frequency, Duration) Notes Start Date End Date Status Urocit-K 10 10 MEQ (1080 MG) 2 tablet with meals Orally twice a day; Duration: 90 days 02/22/2025 Active Problems Problem Type SNOMED Code ICD Code Onset Dates Problem Status W/U Status Risk Notes Problem Hypothyroidism (48024720) Hypothyroidism, unspecified (E03.9) Active confirmed Problem Diabetic renal disease (150071198) Type 2 diabetes mellitus with diabetic chronic kidney disease (E11.22) Active confirmed Problem Obesity (069291588) Obesity, uns pecified (E66.9) Active confirmed Problem Aortic valve disorde r (8486692) 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) Active confirmed Problem Chronic obstructive pulmonary disease (04121556) Chronic obstructive pulmonary disease, unspecified (J44.9) Active confirmed Problem Chronic kidney disease stage 2 (236385145) Chronic kidney disease, stage 2 (mild) (N18.2) Active confirmed Problem Calculus of kidney (60749259) Calculus of kidney (N20.0) Active confirmed Problem Renal osteodystrophy (57448808) Renal osteodystrophy (N25.0) Active confirmed Problem Secondary hyperparathyroidism of renal origin (90106630) Secondary hyperparathyroidism of renal origin (N25.81) Active confirmed Problem Overactive bladder (985059806) Overactive bladder (N32.81) Active confirmed Problem Edema (12186613) Edema, unspecif ied (R60.9) Active confirmed Problem Essential hypertension (90314240) Essential hypertension (I10) Active confirmed Encounters Encounter Location Date Provider Diagnosis [place] [facility] [address] [facility] [address] [place] [address] 10/12/2024 Everette Griffin Chronic kidney disea se, stage 3 unspecified N18.30 ; Type 2 diabetes mellitus with diabetic chronic kidney disease E11.22 ; Proteinuria, unspecified R80.9 ; Essential hypertension I10 ; Renal osteodystrophy N25.0 ; Secondary hyperparathyroidism of renal origin N25.81 ; Acute metabolic acidosis E87.21 and Obesity, unspecified E66.9 [facility] [address] [place] [address] 10/26/2024 Everette Griffin Chronic kidney disea se, stage 3 unspecified N18.30 ; Type 2 diabetes mellitus with diabetic chronic kidney disease E11.22 ; Essential hypertension I10 ; Hypothyroidism, unspecified E03.9 ; 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 ; Obesity, unspecified E66.9 ; Edema, unspecified R60.9 and Chronic obstructive pulmonary disease, unspecified J44.9 [facility] [address] [address] 02/22/2025 Everette Griffin Chronic kidney disea se, [...] bladder N32.81 and Calculus of kidney N20.0 [facility] [address] [address] 04/05/2025 Everette Griffin Chronic kidney disea se, [...] bladder N32.81 and Calculus of kidney N20.0 [place] [facility] [address] [facility] [address] [place] [address] 02/22/2025 Everette Griffin [place] [facility] [address] [address] 02/22/2025 Everette Griffin [place] [facility] [address] [address] 02/22/2025 Everette Griffin [place] [facility] [address] [address] 04/05/2025 Everette Griffin Assessments Encounter Date Diagnosis (ICD [...] stage 2 (mild) (ICD-10 - N18.2) 04/05/2025 Chronic kidney disea se, stage 2 (mild) (ICD-10 - N18.2) 02/22/2025 Essential hypertensi on (ICD-10 - I10) 04/05/2025 Type 2 diabetes mellitus with diabetic chronic kidney disease (ICD-10 - E11.22) 10/26/2024 Type 2 diabetes mellitus with diabetic chronic kidney disease (ICD-10 - E11.22) 10/12/2024 Type 2 diabetes mellitus with diabetic chronic kidney disease (ICD-10 - E11.22) 10/12/2024 Proteinuria, unspecified (ICD-10 - R80.9) 10/26/2024 Essential hypertensi on (ICD-10 - I10) 02/22/2025 Other nonrheumatic aortic valve disorders (ICD-10 - I35.8) 04/05/2025 Essential hypertensi on (ICD-10 - I10) 04/05/2025 Other nonrheumatic aortic valve disorders (ICD-10 - I35.8) 10/12/2024 Essential hypertensi on (ICD-10 - I10) 02/22/2025 Hypothyroidism, unspecified (ICD-10 - E03.9) 10/26/2024 Hypothyroidism, unspecified (ICD-10 - E03.9) 10/26/2024 Other nonrheumatic aortic valve disorders (ICD-10 - I35.8) 10/12/2024 Renal osteodystrophy (ICD-10 - N25.0) 04/05/2025 Hypothyroidism, unspecified (ICD-10 - E03.9) 02/22/2025 Chronic obstructive pulmonary disease, unspecified (ICD-10 - J44.9) 02/22/2025 Obesity, unspecified (ICD-10 - E66.9) 04/05/2025 Chronic obstructive pulmonary disease, unspecified (ICD-10 - J44.9) 10/12/2024 Secondary hyperparathyroidism of renal origin (ICD-10 - N25.81) 10/26/2024 Obesity, unspecified (ICD-10 - E66.9) 10/26/2024 Edema, unspecified (ICD-10 - R60.9) 10/12/2024 Acute metabolic acidosis (ICD-10 - E87.21) 04/05/2025 Obesity, unspecified (ICD-10 - E66.9) 02/22/2025 Edema, unspecified (ICD-10 - R60.9) 02/22/2025 Renal osteodystrophy (ICD-10 - N25.0) 10/12/2024 Obesity, unspecified (ICD-10 - E66.9) 10/26/2024 Chronic obstructive pulmonary disease, unspecified (ICD-10 - J44.9) 04/05/2025 Edema, unspecified (ICD-10 - R60.9) 04/05/2025 Renal osteodystrophy (ICD-10 - N25.0) 02/22/2025 Secondary hyperparathyroidism of renal origin (ICD-10 - N25.81) 02/22/2025 Overactive bladder (ICD-10 - N32.81) 04/05/2025 Secondary hyperparathyroidism of renal origin (ICD-10 - N25.81) 04/05/2025 Overactive bladder (ICD-10 - N32.81) 02/22/2025 Calculus of kidney (ICD-10 - N20.0) 04/05/2025 Calculus of kidney (ICD-10 - N20.0) Plan Of Treatment Next Appt Details Provider Name:Everette Griffin , 09/27/2025 02:00:00 PM, [address], [facility] [address], [place], [address],
--- OUTSIDE RECORDS SUMMARY | 2025-04-21 11:06 | XMS_ITS ---
Author Organization [facility] Office Address [address] [facility] [address] [facility] [address] [place] [address] Care Team Providers Care Renal Dialysis Technician Name Role Phone Elias Everette Unavailable [phone] Encounters Encounter Location Date Provider Diagnosis [place] [facility] [address] [facility] [address] [place] [address] 03/29/2025 Everette Griffin Plan Of Treatment Next Appt Details Provider Name:Everette Griffin , 09/27/2025 02:00:00 PM, [address] [facility], [facility] [address], [place], [address], Progress Notes * DOMINIC MARQUEZOB:[birth year] (60 yo F)Acc No.[id number]:03/29/2025 Progress Notes Patient: CONRADO COLINDRES Provider: Savanna BENAVIDES MD, F.Rubin.C.P, F.A.S.N. :1965 A ge:60 Y S ex:Female Date:03/29/2025 Address:[address] [place], [place] [id number] Subjective: * Chief Complaints: * * Medical History: Objective: * Vitals: Assessment: Plan: * Treatment: * Billing Information: * Visit Code: * Procedure Codes: * Electronic signature of Jillian Griffin MD on 04/21/2025 at 11:06 AM CDT Sign off status: Pending * Provider: Savanna BENAVIDES MD, Geno.Rubin.C.P, F.A.S.N. Date: 03/29/2025 Generated for Printing/Faxing/eTransmitting on: 04/21/2025 11:06 AM CDT
[2025-04-21 11:16] VITALS: BP 164/97; PULSE 98; RESP 102; O2SAT 100
[2025-04-21 11:23] VITALS: BP 164/97; PULSE 89; RESP 16; O2SAT 100
--- NOTE | 2025-04-21 11:36 | ED_ITS ---
HPI - Extremity Problem General Chief complaint: Extremity Problem,Nontraumatic Stated complaint: ble swelling Time Seen by Provider: 04/21/25 11:04 History of Present Illness HPI Narrative: Patient is a 60-year-old female who presents to the ER with complaints of right lower extremity swelling. She reports the swelling started approximately 2 weeks ago when she started taking ciprofloxacin for UTI. Patient reports she is now off antibiotics. She reports she has been trying to elevate her extremities, soak them in Epson salt, and drink lots of water but none of these things have helped relieve the swelling and pain. Patient endorses a history of chronic kidney disease, aortic valve replacement, hypothyroidism, hypertension, and COPD. She denies any recent fevers, right knee pain, or injury to the site. Related Data Allergies Allergy/AdvReac Type Severity Reaction Status Date / Time No Known Allergies Allergy Verified 04/21/25 11:24 Review of Systems 2 Review of Systems: All systems reviewed & are unremarkable except as noted in HPI and below Exam 2 Narrative: GENERAL: Well appearing, obese, non-toxic, in no acute distress. HEAD: Normocephalic, atraumatic. NECK: Supple. No adenopathy, no masses. RESPIRATORY: Airway patent, respirations nonlabored. Diminished, but clear to auscultation bilaterally, no rales, rhonchi, wheezing. CARDIOVASCULAR: Regular rate and rhythm without murmurs, rubs, or gallops. Peripheral pulses 2+ and equal bilaterally.+ pitting edema bilateral lower extremities (R>L) ABDOMINAL: Soft, nontender, nondistended, no hepatosplenomegaly. Normoactive BS. MUSCULOSKELETAL: Moves all extremities. Strength/ROM intact without gross deformities. SKIN: Warm, dry, normal color. No rashes. R LE redness and swelling NEURO: A&O X3. Speech clear. Cranial nerves II-XII intact. No ataxic movements. PSYCHIATRIC: Appropriate mood and affect. Normal interaction. Course Vital Signs Vital signs: Vital Signs Pulse Rate 98 04/21/25 11:16 Respiratory Rate 102 H 04/21/25 11:16 Blood Pressure 164/97 H 04/21/25 11:16 Pulse Oximetry 100 04/21/25 11:16 Oxygen Delivery Room Air 04/21/25 11:16 Pulse Rate 92 04/21/25 12:27 Respiratory Rate 14 04/21/25 12:27 Blood Pressure 127/69 04/21/25 12:27 Pulse Oximetry 100 04/21/25 12:27 Oxygen Delivery Room Air 04/21/25 11:16 MDM - Extremity (Nontraumatic) MDM Narrative Medical decision making narrative: Patient is a 60-year-old female who presents to the ER with complaints of right lower extremity swelling. She reports the swelling started approximately 2 weeks ago when she started taking ciprofloxacin for UTI. Patient reports she is now off antibiotics. She reports she has been trying to elevate her extremities, soak them in Epson salt, and drink lots of water but none of these things have helped relieve the swelling and pain. Patient endorses a history of chronic kidney disease, aortic valve replacement, hypothyroidism, hypertension, and COPD. She denies any recent fevers, right knee pain, or injury to the site. Labs Ordered: CBC, CMP, lactic acid, proBNP Imaging Ordered: Right foot x-ray, right ankle x-ray, right lower extremity venous Doppler ultrasound Medications Ordered: Keflex p.o. Results: Patient's ultrasound indicates No lower extremity deep venous thrombosis. Patient's x-rays indicate 1. Diffuse soft tissue swelling with subcutaneous air about the visualized lower leg, ankle and over the dorsum of the foot. No acute osseous abnormality. 2. Achilles and plantar calcaneal spurs. Diagnosis: Right foot cellulitis Patient Education/Shared MDM: Results of lab work and imaging shared with patient. She shows no indications of sepsis on her blood work or vital signs. Patient is not diabetic. She will be given her 1st dose of antibiotic here in the ER and sent home with a prescription. Patient strongly advised to maintain hydration status upon discharge and elevate her lower extremities as much as possible. She should follow-up with her PCP as soon as possible. Patient will be discharged home with a prescription for Keflex. Strict return precautions provided. Patient verbalized understanding and is in agreement with plan. Vital signs stable at time of discharge. All questions answered. Differential Diagnosis Differential diagnosis: Likely cellulitis, lower extremity edema and deep vein thrombosis of lower extremity Lab Data 04/21/25 11:59 04/21/25 11:59 Labs: Lab Results 04/21/25 04/21/25 Range/Units 11:59 12:32 WBC 6.5 (4.5-10.0) K/mm3 RBC 4.47 (4.2-5.4) M/mm3 Hgb 13.8 (12.0-15.0) g/dL Hct 44.2 (37.0-47.0) % MCV 98.9 (80-100) fl MCH 30.9 (26-34) pg MCHC 31.2 L (32-36) g/dl RDW 13.1 (11.5-14.5) % Plt Count 237 (150-375) k/mm3 MPV 9.9 (7.4-10.4) fl Immature Gran % (Auto) 0.3 (0-0.5) % Neut % (Auto) 65.3 (45.5-73.1) % Lymph % (Auto) 19.1 (18.3-44.2) % [place] % (Auto) 11.5 H (2.6-8.5) % Eos % (Auto) 2.9 (0-4.4) % Baso % (Auto) 0.9 (0.2-1.2) % Lymph # (Auto) 1.25 (0.9-3.2) K/mm3 [place] # (Auto) 0.8 H (0.1-0.6) K/mm3 Eos # (Auto) 0.2 (0-0.3) K/mm3 Baso # (Auto) 0.1 (0.0-0.1) K/mm3 Abs Immat Gran (auto) 0.02 (0.00-0.031) K/mm3 Absolute Neuts (auto) 4.3 (1.3-6.7) K/mm3 Absolute Nucleated RBC 0.000 (0.0-0.012) K/mm3 Nucleated RBC % 0.0 (0.0-0.2) % Sodium 138 (137-145) mmol/L Potassium 5.0 (3.4-5.0) mmol/L Chloride 105 (98-107) mmol/L Carbon Dioxide 24 (22-30) mmol/L Anion Gap 9 (4-12) mmol/L BUN 18 H (7-17) mg/dL Creatinine 0.90 (0.7-1.0) mg/dL Estim Creat Clear Calc 78 ml/min Estimated GFR > 60 (59 - ) Glucose 75 (65-110) mg/dL Lactic Acid 2.3 H (0.7-2.0) mmol/L Calcium 9.3 (8.4-10.2) mg/dL Total Bilirubin 0.7 (0.2-1.3) mg/dL AST 40 H (14-36) U/L ALT 26 (6-35) U/L Alkaline Phosphatase 96 (38-126) U/L NT-Pro-B Natriuret Pep 82 (19.9-100) pg/mL Total Protein 7.4 (6.3-8.2) g/dL Albumin 4.3 (3.5-5.1) g/dL Discharge Plan Discharge Clinical Impression: Cellulitis, Lower extremity edema Patient Disposition: Home Condition: Stable Instructions: Antibiotic Form, Cellulitis (ED) Additional Instructions: Please return to the ER with any worsening symptoms. Follow-up with primary care provider as soon as possible. Take all medications as prescribed, including regularly scheduled medications. Complete your full dose of antibiotics. Return to ER with any increased signs/symptoms of infection including skin hot to the touch, fevers, purulent drainage. Patient Language: Cymraes Prescriptions: New cephalexin 500 mg capsule 500 mg PO Q8H Qty: 30 0RF Follow-up/Referrals: Rito,Mary Conklin MD [Primary Care Provider] - Time of Disposition: 14:04
[2025-04-21 12:06] LABS: Hematocrit 44.2 % (37.0-47.0); Hemoglobin 13.8 g/dL (12.0-15.0); Immature Granulocyte Percent A 0.3 % (0-0.5); Lymphocytes Absolute Auto 1.25 K/mm3 (0.9-3.2); Mean Corpuscular HGB Conc 31.2 g/dl (32-36); Mean Corpuscular Hemoglobin 30.9 pg (26-34); Mean Corpuscular Volume 98.9 fl (80-100); Nucleated Red Blood Cells Absolute Auto 0.000 K/mm3 (0.0-0.012); Nucleated Red Blood Cells Perc 0.0 % (0.0-0.2); Platelet Count Result 237 k/mm3 (150-375); Red Blood Count 4.47 M/mm3 (4.2-5.4); White Blood Count 6.5 K/mm3 (4.5-10.0)
[2025-04-21 12:26] LABS: Alanine Aminotransferase 26 U/L (6-35); Albumin Level 4.3 g/dL (3.5-5.1); Alkaline Phosphatase 96 U/L (38-126); Anion Gap 9 mmol/L (4-12); Aspartate Amino Transferase 40 U/L (14-36); Bilirubin,Total 0.7 mg/dL (0.2-1.3); Blood Urea Nitrogen 18 mg/dL (7-17); Calcium 9.3 mg/dL (8.4-10.2); Carbon Dioxide 24 mmol/L (22-30); Chloride 105 mmol/L (98-107); Estimated CRCL calculation 78 ml/min; Estimated Glomerular Filt Rate > 60; Glucose 75 mg/dL (65-110); Potassium 5.0 mmol/L (3.4-5.0); Sodium 138 mmol/L (137-145); Total Protein 7.4 g/dL (6.3-8.2)
[2025-04-21 12:27] VITALS: BP 127/69; PULSE 92; RESP 14; O2SAT 100
[2025-04-21 12:34] LABS: NT Pro B Type Natriuretic Pept 82 pg/mL (19.9-100)
[2025-04-21] MEDS: CEPHALEXIN 500 MG CAPSULE PO (14:10)
[2025-04-21 14:13] VITALS: BP 164/97; PULSE 97; RESP 17; O2SAT 100
== END 2025-04-21 14:16 | disposition home or self-care (01) ==
PROVIDERS: Emergency Provider Registered Nurse; PCP Internal Medicine Gastroenterology
DX: L03.115 Cellulitis of right lower limb (principal); R60.0 Localized edema; I12.9 Hypertensive chronic kidney disease with stage 1 through stage 4 chronic kidney disease, or unspecified chronic kidney disease; N18.9 Chronic kidney disease, unspecified; J44.9 Chronic obstructive pulmonary disease, unspecified; E03.9 Hypothyroidism, unspecified; Z95.2 Presence of prosthetic heart valve; M77.31 Calcaneal spur, right foot
CPT/HCPCS: 36415; 73610; 73630; 80053; 83605; 83880; 85025; 93971; 99284; A9270

== ENCOUNTER 2025-08-04 12:04 | Outpatient (CLI) | payer MEDICARE, SELFPAY ==
--- NOTE | ~2025-08-04 | CT_ITS ---
EXAMINATION: CT lung screening DATE: 08/04/2025 12:25 INDICATION: Lung cancer screening TECHNIQUE: Computed tomography (CT) of the chest was performed without intravenous contrast. Additional 3D reconstructions utilizing coronal maximum intensity projection (MIP) were performed. Automated exposure control and iterative reconstruction technique were employed. The dose-length product was 57 4.42 mGy-cm. COMPARISON: None FINDINGS: 2 mm calcified nodules in the anterobasilar right lower lobe consistent with old granulomatous disease. Subtle tree-in-bud opacities with numerous tiny <3 mm centrilobular nodules in the left upper lobe and lingula consistent with most likely infectious age-indeterminate endobronchial spread of disease. No pulmonary edema or pleural effusion. Heart size normal. Small amount of atherosclerotic coronary artery calcific location. Aortic valve repair. No pericardial effusion. Thoracic aorta is normal in caliber. No pathologically enlarged thoracic lymphadenopathy. Large calcified gallstone in the decompressed gallbladder. Visualized upper abdomen is otherwise unremarkable. Mild thoracic spondylosis with bridging osteophytes at multiple levels consistent with diffuse idiopathic skeletal hyperostosis (DISH). IMPRESSION: 1. Lung-RADS category 2: Benign appearance or behavior. Continue annual screening with noncontrast low-dose chest CT in 12 months. Reviewed, dictated and finalized at location A. ELAIN TECHNICIAN IMPRESSION: 1. Lung-RADS category 2: Benign appearance or behavior. Continue annual screeni ng with noncontrast low-dose chest CT in 12 months.
== END 2025-08-04 12:05 | disposition home or self-care (01) ==
PROVIDERS: PCP Internal Medicine Infectious Disease; Visit Provider Internal Medicine Infectious Disease
DX: Z12.2 Encounter for screening for malignant neoplasm of respiratory organs (principal); Z87.891 Personal history of nicotine dependence
CPT/HCPCS: 71271